=== PATIENT | male | born 1970 | race African-American/Black ===

== ENCOUNTER 2019-06-15 23:27 | Inpatient (IN) | payer OTHER ==
[2019-06-16 01:31] VITALS: BMI 28.4
--- NOTE | 2019-06-16 01:59 | HP ---
CIWA Score Nausea/Vomitin-No Nausea/No Vomiting Muscle Tremors: None Anxiety: 4-Mod. Anxious/Guarded Agitation: 4-Moderately Restless Paroxysmal Sweats: No Perspiration Orientation: 0-Oriented Tacttile Disturbances: 0-None Auditory Disturbances: 0-None Visual Disturbances: 0-None Headache: 4-Moderately Severe CIWA-Ar Total Score: 12 - Admission Criteria OASAS Guidelines: Admission for Medically Managed Detox: Requires at least one of the followin. CIWA greater than 12 2. Seizures within the past 24 hours 3. Delirium tremens within the past 24 hours 4. Hallucinations within the past 24 hours 5. Acute intervention needed for co occurring medical disorder 6. Acute intervention needed for co occurring psychiatric disorder 7. Severe withdrawal that cannot be handled at a lower level of care (continued vomiting, continued diarrhea, abnormal vital signs) requiring intravenous medication and/or fluids 8. Patient presents the following: CIWA greater than 12 Admission Criteria Met: Admission criteria met Admitting History and Physical - Smoking History Smoking history: Current every day smoker Have you smoked in the past 12 months: Yes Aproximately how many cigarettes per day: 30 - Alcohol/Substance Use Hx Alcohol Use: Yes Admission ROS [facility] Chief Complaint: seeking detox for alcohol Allergies/Adverse Reactions: Allergies Allergy/AdvReac Type Severity Reaction Status Date / Time No Known Allergies Allergy Verified 01/10/16 11:57 History of Present Illness: HERE FOR ALCOHOL DETOX. CLIENT IS SELF REFERRED HE IS KNOWN TO THIS PROGRAM. LAST HERE 2015. PRESENTS TODAY WITH C/O WORSENING WITHDRAWAL SEEKING DETOX. HE REPORTS DAILY INTAKE . STATES HE DRINKS ALL DAY. 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 DENIES SEIZURE D/O, SI/HI/AVH. DENIES ANY SIGNIFICANT PERIOD OF CLEAN TIME IN THE PAST YEAR. HOMELESS, UNEMPLOYED, DENIES LEGALS Exam Limitations: No Limitations - Ebola screening Have you traveled outside of the country in the last 21 days: No (N) Have you had contact with anyone from an Ebola affected area: No Do you have a fever: No - Review of Systems Constitutional: Chills, Night Sweats EENT: reports: Other (ENUCLEATED LEFT EYE) Respiratory: reports: No Symptoms reported Cardiac: reports: No Symptoms Reported GI: reports: Poor Fluid Intake : reports: No Symptoms Reported Musculoskeletal: reports: No Symptoms Reported Integumentary: reports: No Symptoms Reported Neuro: reports: Headache, Other (BLACK OUTS) Endocrine: reports: No Symptoms Reported Hematology: reports: No Symptoms Reported Psychiatric: reports: Orientated x3, Agitated (IRRITABLE), Anxious Other Systems: Reviewed and Negative Patient History - Patient Medical History Hx Anemia: No Hx Asthma: No Hx Chronic Obstructive Pulmonary Disease (COPD): No Hx Cancer: No Hx Cardiac Disorders: No Hx Congestive Heart Failure: No Hx Hypertension: Yes (ON MEDS) Hx Hypercholesterolemia: No Hx Pacemaker: No HX Cerebrovascular Accident: No Hx Seizures: No Hx Dementia: No Hx Diabetes: No Hx Gastrointestinal Disorders: No Hx Liver Disease: No Hx Genitourinary Disorders: No Hx Sexually Transmitted Disorders: No Hx Renal Disease (ESRD): No Hx Thyroid Disease: No Hx Human Immunodeficiency Virus (HIV): No Hx Hepatitis C: No Hx Depression: No Hx Suicide Attempt: Yes (tried shoOt himself) Hx Bipolar Disorder: Yes Hx Schizophrenia: Yes Other Medical History: DENIES - Patient Surgical History Past Surgical History: Yes Hx Neurologic Surgery: No Hx Cataract Extraction: No Hx Cardiac Surgery: No Hx Lung Surgery: No Hx Breast Surgery: No Hx Breast Biopsy: No Hx Abdominal Surgery: No Hx Appendectomy: No Hx Cholecystectomy: No Hx Genitourinary Surgery: No Hx Section: No Hx Orthopedic Surgery: No Other Surgical History: s/p enucleation of left eye at age of 35 Anesthesia Reaction: No - PPD History Previous Implant?: Yes Documented Results: Negative w/proof Implanted On Prior [facility] Admission?: Yes Date: 08/30/15 Results: 0 mm PPD to be Administered?: Yes - Smoking Cessation Smoking history: Current every day smoker Have you smoked in the past 12 months: Yes Aproximately how many cigarettes per day: 20 Cigars Per Day: 0 Hx Chewing Tobacco Use: No Initiated information on smoking cessation: Yes 'Breaking Loose' booklet given: 06/16/19 - Substance & Tx. History Hx Alcohol Use: Yes Hx Substance Use: Yes Substance Use Type: Alcohol, Marijuana Hx Substance Use Treatment: Yes ([facility]) - Substances abused Alcohol Other (specify): BEER/LIQUOR Substance route: Oral Frequency: Daily Amount used: 3-6 PACKS /16OZ- 1 GALLON Age of first use: 18 Date of last use: 06/15/19 Admission Physical Exam BHS - Vital Signs Vital Signs: Vital Signs - 24 hr 06/16/19 01:30 Temperature 97.5 F L Pulse Rate 63 Respiratory 18 Rate Blood Pressure 154/101 H - Physical General Appearance: Yes: Moderate Distress, Tremorous (FLET), Irritable HEENTM: Yes: EOMI (RIGHT EYE), Normocephalic, Normal Voice, ZACK (R EYE), Pharynx Normal, Other (LEFT EYE ENUCLEATED) Respiratory: Yes: Chest Non-Tender, Lungs Clear, Normal Breath Sounds, No Respiratory Distress, No Accessory Muscle Use Neck: Yes: No masses,lesions,Nodules, Supple, Trachea in good position Breast: Yes: Breast Exam Deferred Cardiology: Yes: Regular Rhythm, Regular Rate, S1, S2 Abdominal: Yes: Normal Bowel Sounds, Non Tender, Flat, Soft Genitourinary: Yes: Within Normal Limits Back: Yes: Normal Inspection Musculoskeletal: Yes: full range of Motion, Gait Steady Extremities: Yes: Normal Range of Motion, Non-Tender, Tremors (FELT) Neurological: Yes: Fully Oriented, Alert, Motor Strength 5/5, Depressed Affect Integumentary: Yes: Dry, Warm, Other (RESOLVING FOLLICULITIS OF CHEST) Lymphatic: Yes: Within Normal Limits - Diagnostic (1) Bipolar 1 disorder Current Visit: Yes Status: Acute (2) Schizophrenia Current Visit: Yes Status: Acute (3) Alcohol dependence with uncomplicated withdrawal Current Visit: No Status: Acute (4) Cannabis dependence Current Visit: No Status: Acute (5) Essential hypertension Current Visit: No Status: Chronic (6) Nicotine abuse Current Visit: No Status: Chronic (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
[2019-06-16] MEDS ORDERED: ONDANSETRON *ODT* 4 MG TABLET SL PRN (02:02)
[2019-06-16] MEDS ORDERED: MENTHOL/PHENOL 1 EACH UD MM PRN (02:02)
[2019-06-16] MEDS ORDERED: guaiFENesin 200 MG/10 ML 10 ML UNIT-DOSE CUPS PO PRN (02:02)
[2019-06-16] MEDS ORDERED: NICOTINE POLACRILEX 2 MG GUM BUC PRN (02:02)
[2019-06-16] MEDS ORDERED: chlordiazePOXIDE HCL 25 MG CAPSULE PO PRN (02:02)
[2019-06-16] MEDS ORDERED: BISMUTH SUBSALICYLATE 524 MG/30 ML UD PO PRN (02:02)
[2019-06-16] MEDS ORDERED: METHOCARBAMOL 500 MG TABLET PO PRN (02:02)
[2019-06-16] MEDS ORDERED: hydrOXYzine PAMOATE 25 MG CAPSULE (FP) PO PRN (02:02)
[2019-06-16] MEDS ORDERED: ACETAMINOPHEN 325 MG TABLET (FP) PO PRN ×2 (02:02)
[2019-06-16] MEDS ORDERED: IBUPROFEN 400 MG TABLET (FP) PO PRN (02:02)
[2019-06-16] MEDS ORDERED: MAGNESIUM HYDROX 2400MG/30ML ORAL SUSPENSION 30 ML CUP PO PRN (02:02)
[2019-06-16] MEDS ORDERED: MAG HYDROX/AL HYDROX/SIMETH 30 ML UNIT-DOSE CUP PO PRN (02:02)
[2019-06-16] MEDS ORDERED: DICYCLOMINE HCL 10 MG CAPSULE PO PRN (02:02)
[2019-06-16] MEDS ORDERED: MELATONIN 5 MG TABLETS PO PRN (02:02)
[2019-06-16] MEDS ORDERED: P-EPHED 60MG/TRIPROLIDI 2.5MG TABLET PO PRN (02:02)
[2019-06-16] MEDS ORDERED: MAGNESIUM CITRATE 300 ML BOTTLE PO PRN (02:02)
[2019-06-16] MEDS: chlordiazePOXIDE HCL 25 MG CAPSULE PO SCH ×4 (06:51→22:21)
[2019-06-16] MEDS: HYDROCHLOROTHIAZIDE 25 MG TABLET (FP) PO SCH (10:13)
[2019-06-16] MEDS: PRENATAL VITAMINS W/ FOLIC ACID TABLET (FP) PO SCH (10:13)
[2019-06-16] MEDS: NICOTINE 21 MG/24 HOURS TOPICAL PATCH TD SCH (10:13)
[2019-06-16 12:08] LABS: HEMATOCRIT 42.7 % (35.4-49); HEMOGLOBIN 13.9 GM/dL (11.7-16.9); MCH 27.6 pg (25.7-33.7); MCHC 32.6 g/dl (32.0-35.9); MEAN CELL VOLUME 84.5 fl (80-96); MEAN PLT VOLUME 8.8 fl (7.5-11.1); PLATELET COUNT 192 K/MM3 (134-434); RBC 5.06 M/mm3 (4.00-5.60); RDW 14.4 % (11.9-15.9); WHITE BLOOD COUNT 7.8 K/mm3 (4.0-10.0)
[2019-06-16 12:16] LABS: ALBUMIN 3.6 g/dl (3.4-5.0); BILIRUBIN,TOTAL 0.3 mg/dL (0.2-1); BLOOD UREA NITROGEN 11.8 mg/dL (7-18); CALCIUM 8.6 mg/dL (8.5-10.1); POTASSIUM 3.9 mmol/L (3.5-5.1); TOT PROT 6.3 g/dl (6.4-8.2)
--- NOTE | 2019-06-16 12:16 | PN ---
S CIWA - CIWA Score Nausea/Vomitin-No Nausea/No Vomiting Muscle Tremors: 3 Anxiety: 2 Agitation: 3 Paroxysmal Sweats: 3 Orientation: 0-Oriented Tacttile Disturbances: 0-None Auditory Disturbances: 0-None Visual Disturbances: 0-None Headache: 0-None Present CIWA-Ar Total Score: 11 BHS Progress Note (SOAP) Subjective: sweats irritable chills tired interrupted sleep Objective: 06/16/19 12:14 Vital Signs Temperature 97.9 F 06/16/19 10:03 Pulse Rate 63 06/16/19 10:03 Respiratory Rate 18 06/16/19 10:03 Blood Pressure 138/89 06/16/19 10:03 O2 Sat by Pulse Oximetry (%) Laboratory Tests 06/16/19 08:20 WBC 7.8 RBC 5.06 Hgb 13.9 Hct 42.7 MCV 84.5 MCH 27.6 MCHC 32.6 RDW 14.4 Plt Count 192 MPV 8.8 rest of labs pending aaox3 ambulating no acute distress Assessment: 06/16/19 12:16 withdrawals Plan: continue detox increase fluids pending labs
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
[2019-06-16] MEDS: THIAMINE HCL 100 MG TABLET (FP) PO SCH (22:21)
[2019-06-17] MEDS: chlordiazePOXIDE HCL 25 MG CAPSULE PO SCH ×3 (06:17→17:13)
[2019-06-17] MEDS: HYDROCHLOROTHIAZIDE 25 MG TABLET (FP) PO SCH (10:30)
[2019-06-17] MEDS: PRENATAL VITAMINS W/ FOLIC ACID TABLET (FP) PO SCH (10:30)
[2019-06-17] MEDS: NICOTINE 21 MG/24 HOURS TOPICAL PATCH TD SCH (10:31)
--- NOTE | 2019-06-17 11:10 | PN ---
S CIWA - CIWA Score Nausea/Vomitin-No Nausea/No Vomiting Muscle Tremors: 3 Anxiety: 2 Agitation: 3 Paroxysmal Sweats: 2 Orientation: 0-Oriented Tacttile Disturbances: 0-None Auditory Disturbances: 0-None Visual Disturbances: 0-None Headache: 0-None Present CIWA-Ar Total Score: 10 S Progress Note (SOAP) Subjective: sleepy tired interrupted sleep sweats Objective: 06/17/19 11:10 Vital Signs Temperature 96.6 F L 06/17/19 09:57 Pulse Rate 52 L 06/17/19 09:57 Respiratory Rate 16 06/17/19 09:57 Blood Pressure 155/70 06/17/19 09:57 O2 Sat by Pulse Oximetry (%) Laboratory Tests 06/16/19 06/16/19 08:20 08:20 WBC 7.8 RBC 5.06 Hgb 13.9 Hct 42.7 MCV 84.5 MCH 27.6 MCHC 32.6 RDW 14.4 Plt Count 192 MPV 8.8 Sodium 142 Potassium 3.9 Chloride 105 Carbon Dioxide 31 Anion Gap 6 L BUN 11.8 Creatinine 1.0 Est GFR (CKD-EPI)AfAm 102.69 Est GFR (CKD-EPI)NonAf 88.61 Random Glucose 92 Calcium 8.6 Total Bilirubin 0.3 AST 13 L ALT 18 Alkaline Phosphatase 64 Total Protein 6.3 L Albumin 3.6 aaox3 lying in bed no acute distress Assessment: 06/17/19 11:10 withdrawal sx Plan: continue detox increase fluids
[2019-06-18] MEDS ORDERED: chlordiazePOXIDE HCL 10 MG CAPSULE PO PRN
[2019-06-18] MEDS: THIAMINE HCL 100 MG TABLET (FP) PO SCH ×2 (00:54→22:03)
[2019-06-18] MEDS: chlordiazePOXIDE HCL 25 MG CAPSULE PO SCH (00:54)
[2019-06-18] MEDS: chlordiazePOXIDE HCL 10 MG CAPSULE PO SCH ×4 (06:27→22:04)
[2019-06-18] MEDS: PRENATAL VITAMINS W/ FOLIC ACID TABLET (FP) PO SCH (10:51)
[2019-06-18] MEDS: NICOTINE 21 MG/24 HOURS TOPICAL PATCH TD SCH (10:51)
[2019-06-18] MEDS ORDERED: FLU VACCINE QUAD 60 MCG/0.5 ML (MDV 19-20) IM ONE (12:00)
--- NOTE | 2019-06-18 13:31 | PN ---
[facility] CIWA - CIWA Score Nausea/Vomitin-No Nausea/No Vomiting Muscle Tremors: 2 Anxiety: 1-Mildly Anxious Agitation: 2 Paroxysmal Sweats: 2 Orientation: 0-Oriented Tacttile Disturbances: 0-None Auditory Disturbances: 0-None Visual Disturbances: 0-None Headache: 0-None Present CIWA-Ar Total Score: 7 BHS Progress Note (SOAP) Subjective: sweats body aches interrupted sleep irritable Objective: 06/18/19 13:31 Vital Signs Temperature 97.5 F L 06/18/19 09:33 Pulse Rate 58 L 06/18/19 09:33 Respiratory Rate 21 H 06/18/19 09:33 Blood Pressure 109/63 06/18/19 09:33 O2 Sat by Pulse Oximetry (%) aaox3 ambulating no acute distress Assessment: 06/18/19 13:32 mild withdrawals Plan: continue detox increase fluids
[2019-06-18] MEDS: HYDROCHLOROTHIAZIDE 25 MG TABLET (FP) PO SCH (15:30)
--- NOTE | 2019-06-18 22:18 | EKG ---
Test Reason : Blood Pressure : / mmHG Vent. Rate : 049 BPM Atrial Rate : 049 BPM P-R Int : 166 ms QRS Dur : 080 ms QT Int : 490 ms P-R-T Axes : 076 010 -31 degrees QTc Int : 442 ms SINUS BRADYCARDIA T WAVE ABNORMALITY, CONSIDER ANTEROLATERAL ISCHEMIA ABNORMAL ECG WHEN COMPARED WITH ECG OF 31-JUL-2009 23:25, CRITERIA FOR SEPTAL INFARCT ARE NO LONGER PRESENT NONSPECIFIC T WAVE ABNORMALITY NOW EVIDENT IN INFERIOR LEADS T WAVE INVERSION NOW EVIDENT IN ANTEROLATERAL LEADS Confirmed by MD USMAN, LYDIA ([id number]) on 06/18/2019 10:18:41 PM Referred By: Jefferson Lopez Confirmed By:LYDIA MARY MD
[2019-06-19] MEDS ORDERED: chlordiazePOXIDE HCL 10 MG CAPSULE PO SCH (05:00)
[2019-06-19 09:44] VITALS: BP 152/90; PULSE 70; TEMP 96.6
[2019-06-19] MEDS: HYDROCHLOROTHIAZIDE 25 MG TABLET (FP) PO SCH (10:18)
[2019-06-19] MEDS: PRENATAL VITAMINS W/ FOLIC ACID TABLET (FP) PO SCH (10:19)
[2019-06-19] MEDS: NICOTINE 21 MG/24 HOURS TOPICAL PATCH TD SCH (10:19)
--- NOTE | 2019-06-19 13:54 | DS ---
[facility] Detox Discharge Summary Admission Date: 06/16/19 Discharge Date: 06/19/19 - History Present History: Alcohol Dependence, Cannabis Dependence Additional Comments: Pt states he feels well and requested to be discharged instead of tomorrow (). Pt is medically cleared and discharge today. Pt is encouraged to follow- up with CD outpatient program and also to follow-up with his PMD. Pt verbalized understanding. Pt is alert and oriented x3 and in no acute distress. Pertinent Past History: h/o HTN, alcohol and cannabis use disorder. - Physical Exam Results Vital Signs: Vital Signs Temperature 96.6 F L 06/19/19 09:43 Pulse Rate 70 06/19/19 09:43 Respiratory Rate 18 06/19/19 09:43 Blood Pressure 152/90 06/19/19 09:43 O2 Sat by Pulse Oximetry (%) Pertinent Admission Physical Exam Findings: withdrawal symptoms. - Treatment Hospital Course: Detox Protocol Followed, Detoxed Safely, Responded well, Discharged Condition Good - Medication Discharge Medications: Ambulatory Orders Lisinopril [Prinivil] 20 mg PO DAILY #30 tablet 08/31/15 Hydrochlorothiazide [Hctz -] 25 mg PO DAILY #30 tablet 06/19/19 - Diagnosis (1) Alcohol dependence with uncomplicated withdrawal Current Visit: No Status: Acute (2) Cannabis dependence Current Visit: No Status: Acute (3) Cocaine dependence Current Visit: No Status: Acute Qualifiers: Substance use status: uncomplicated Qualified Code(s): F14.20 - Cocaine dependence, uncomplicated (4) Essential hypertension Current Visit: No Status: Chronic (5) Nicotine dependence Current Visit: No Status: Chronic Qualifiers: Nicotine product type: cigarettes Substance use status: unspecified nicotine-induced disorder Qualified Code(s): F17.219 - Nicotine dependence, cigarettes, with unspecified nicotine-induced disorders (6) Traumatic enucleation of left eye Current Visit: No Status: Chronic Qualifiers: Encounter type: sequela Qualified Code(s): S05.72XS - Avulsion of left eye , sequela - AMA Did Patient Leave Against Medical Advice: No [facility] CIWA - CIWA Score Nausea/Vomitin-No Nausea/No Vomiting Muscle Tremors: None Anxiety: 1-Mildly Anxious Agitation: 0-Normal Activity Paroxysmal Sweats: 1-Minimal Palms Moist Orientation: 0-Oriented Tacttile Disturbances: 0-None Auditory Disturbances: 0-None Visual Disturbances: 0-None Headache: 0-None Present CIWA-Ar Total Score: 2
[2019-06-20] MEDS ORDERED: chlordiazePOXIDE HCL 10 MG CAPSULE PO ONE (05:00)
== END 2019-06-19 10:22 | disposition home or self-care (01) | DRG 774 ==
LOC: YASAS 23:27 → Y6N 06-16 02:05
PROVIDERS: ADMIT Allergy & Immunology; ATTEND Allergy & Immunology
PROC: HZ2ZZZZ Detoxification Services for Substance Abuse Treatment (ICD-10-PCS; principal; 2019-06-16)
DX: F10.230 Alcohol dependence with withdrawal, uncomplicated (principal); F14.20 Cocaine dependence, uncomplicated; F12.20 Cannabis dependence, uncomplicated; F17.210 Nicotine dependence, cigarettes, uncomplicated; F20.9 Schizophrenia, unspecified; F31.9 Bipolar disorder, unspecified; I10 Essential (primary) hypertension; S05.72XS Avulsion of left eye, sequela; Z87.828 Personal history of other (healed) physical injury and trauma; Y08.89XS Assault by other specified means, sequela
CPT/HCPCS: 36415; 80053; 85027; 86593; 93005; 93010

== ENCOUNTER 2019-10-11 23:32 | Observation (INO) | payer OTHER ==
--- NOTE | 2019-10-12 00:25 | PDOC ---
History of Present Illness - General Chief Complaint: Shortness of Breath Stated Complaint: FEELING DIZZY Time Seen by Provider: 10/12/19 00:24 - History of Present Illness Initial Comments: 10/12/19 01:02 The patient is a 49 year old male with a history of HTN, HLD, CVA who presents for evaluation of shortness of breath and headache. The patient reports a several hour history of shortness of breath with associated lightheadedness and dizziness. He noted subsequent development of headache prompting his presentation to the ED for further evaluation. He noted that he has had similar symptoms in the past but has never sought medical attention with prior episodes. He otherwise denies fevers, chills, chest pain, nausea, vomiting, abdominal pain, numbness, tingling, weakness, or changes with urination or bowel movements. Past History - Past Medical History Allergies/Adverse Reactions: Allergies Allergy/AdvReac Type Severity Reaction Status Date / Time No Known Allergies Allergy Verified 10/12/19 00:35 Home Medications: Ambulatory Orders Lisinopril [Prinivil] 20 mg PO DAILY #30 tablet 08/31/15 Hydrochlorothiazide [Hctz -] 25 mg PO DAILY #30 tablet 06/19/19 Anemia: No Asthma: No Cancer: No Cardiac Disorders: No CVA: No COPD: No CHF: No Dementia: No Diabetes: No GI Disorders: No Disorders: No HTN: Yes Hypercholesterolemia: No Kidney Stones: No Liver Disease: No Seizures: No Thyroid Disease: No - Surgical History Abdominal Surgery: No Appendectomy: No Cardiac Surgery: No Cholecystectomy: No Lung Surgery: No Neurologic Surgery: No Orthopedic Surgery: No - Reproductive History Testicular Surgery: No - Psycho Social/Smoking Cessation Hx Smoking History: Current every day smoker Have you smoked in the past 12 months: Yes Number of Cigarettes Smoked Daily: 20 Cigars Per Day: 0 'Breaking Loose' booklet given: 06/16/19 Hx Alcohol Use: Yes Drug/Substance Use Hx: Yes Substance Use Type: Alcohol, Marijuana Hx Substance Use Treatment: Yes Review of Systems - Review of Systems Comments:: 10/12/19 01:14 Constitutional: No fevers, chills, fatigue, malaise HEENT: No Rhinorrhea, nasal congestion, visual changes Cardiovascular: Lightheadedness. No chest pain, syncope, palpitations, Respiratory: SOB. No Cough, Hemoptysis, Gastrointestinal: No Abdominal pain, Nausea, Vomiting, Constipation, Diarrhea, Melena Genitourinary: No Dysuria, Frequency, Urgency, Hesitancy, Hematuria, Flank pain Musculoskeletal: No Myalgia, arthralgia Skin: No rashes, itching, bruising, pallor Neurologic: Headache, Dizziness. No Numbness, Weakness, or Tingling Psychiatric: No Hallucinations. No SI or HI *Physical Exam - Physical Exam 10/12/19 01:15 General Appearance: Nourished. No Apparent Distress HEENT: EOMI, ZACK. Absent left eye. No Pharyngeal Erythema, Tonsillar Exudate, Tonsillar Erythema Neck: No Cervical Lymphadenopathy Respiratory/Chest: Lungs Clear, Normal Breath Sounds. No Crackles, Rales, Rhonchi, Wheezing Cardiovascular: Regular Rhythm, Regular Rate. No Murmur, Gallops, Rubs Gastrointestinal/Abdominal: Normal Bowel Sounds, Soft. 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 Normal Finger to Nose and Heel to [place] Heart Score/ECG Review #1 ECG reviewed & interpreted by me at: 05:04 10/12/19 05:04 HR 54 NV 178 QRS 80 QTc 458 Sinus Bradycardia T wave inversions in leads II, III, aVF, V4, V5, V6 Changes noted from EKGon 06/16/19 ED Treatment Course - LABORATORY CBC & Chemistry Diagram: 10/12/19 01:00 10/12/19 01:00 Medical Decision Making - Medical Decision Making 10/12/19 01:16 The patient is a 49 year old male with a history of HTN, HLD, CVA who presents for evaluation of shortness of breath and headache. Given the patient's history and physical exam, we will obtain a cbc, cmp, troponin, ekg, chest plain film, head CT to evaluate further. We will continue to monitor and reassess while here in the ED. 10/12/19 02:04 On reassessment, the patient is now complaining of chest pressure. We will treat with aspirin. 10/12/19 05:00 CBC, troponin were unremarkable. CMP demonstrates potassium of 3.0. Head CT did not demonstrate any acute pathology as preliminarily read by our spare person radiologist. Chest plain film did not demonstrate any acute pathology. Given the patient's cardiac risk factors, he will require admission for further monitoring. Discharge - Discharge Information Problems reviewed: Yes Clinical Impression/Diagnosis: Shortness of breath Chest pain Qualifiers: Chest pain type: unspecified Qualified Code(s): R07.9 - Chest pain, unspecified Condition: Stable - Admission Yes - Follow up/Referral - Patient Discharge Instructions - Post Discharge Activity
--- NOTE | 2019-10-12 00:32 | PDOC ---
Attending Attestation - Resident Resident Name: David Pacheco - ED Attending Attestation I have performed the following: I have examined & evaluated the patient, The case was reviewed & discussed with the resident, I agree w/resident's findings & plan - HPI HPI: 10/12/19 02:17 see resident hpi - Physicial Exam PE: 10/12/19 02:17 see resident exam - Medical Decision Making 10/12/19 02:17 49-year-old male with history of substance abuse as well as multiple cardiac risk factors with chest pressure and shortness of breath, patient also complaining of mild headache, nontrauma related Plan for CT scan of the brain, EKG, chest x-ray Will admit to medical service for further evaluation
[2019-10-12 00:35] VITALS: BMI 28.4
[2019-10-12 01:12] LABS: BASO % 0.3 % (0-2.0); HEMATOCRIT 39.1 % (35.4-49); HEMOGLOBIN 12.8 GM/dL (11.7-16.9); LYMPH % 24.8 % (8-40); MCH 27.2 pg (25.7-33.7); MCHC 32.6 g/dl (32.0-35.9); MEAN CELL VOLUME 83.4 fl (80-96); MEAN PLT VOLUME 8.5 fl (7.5-11.1); MONO % 7.1 % (3.8-10.2); NEUT % 65.8 % (42.8-82.8); PLATELET COUNT 174 K/MM3 (134-434); RBC 4.69 M/mm3 (4.00-5.60); RDW 14.9 % (11.9-15.9); WHITE BLOOD COUNT 9.1 K/mm3 (4.0-10.0)
[2019-10-12 01:47] LABS: ALBUMIN 2.6 g/dl (3.4-5.0); BILIRUBIN,TOTAL 0.4 mg/dL (0.2-1); BLOOD UREA NITROGEN 18.8 mg/dL (7-18); CREATININE 0.7 mg/dL (0.55-1.3); TOT PROT 4.6 g/dl (6.4-8.2)
[2019-10-12 01:56] LABS: CALCIUM 6.4 mg/dL (8.5-10.1)
[2019-10-12] MEDS ORDERED: ASPIRIN 81 MG CHEWABLE TABLETS PO ONE (02:05)
[2019-10-12] MEDS ORDERED: ASPIRIN 81 MG CHEWABLE TABLETS ONE (02:19)
[2019-10-12] MEDS ORDERED: POTASSIUM CHLORIDE TABS 20 MEQ TABLET.ER (FP) PO ONE ×2 (04:55→06:03)
[2019-10-12] MEDS ORDERED: ACETAMINOPHEN 325 MG TABLET (FP) PO PRN (04:57)
--- NOTE | 2019-10-12 05:18 | HP ---
CHIEF COMPLAINT: shortness of breath PCP: Dr. Jerez HISTORY OF PRESENT ILLNESS: 49 y.o. 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 The patient states he stood up quickly to use the restroom and 'passed out' after he finished urinating. He was unsure if he hit his head. Denies LOC. He also reported to ED staff he felt a "chest pressure" while in the ED, which he did not endorse during my interview with him. The patient has a history of hypertension and is prescribed hydrochlorothiazide 25mg daily and lisinopril 20mg daily but has not taken any medications in over 10 days. ER course was notable for: (1) 324mg aspirin (2) CT head, CXR negative (3) EKG shows bradycardia, T wave inversions Recent Travel: denies PAST MEDICAL HISTORY: as above PAST SURGICAL HISTORY: L eye excision Social History: lives in senior care Smoking: heavy smoking history, since age 18, more than 1 pack per day Alcohol: frequent, last use on friday Drugs: marijuana, pcp use, last used both yesterday Allergies No Known Allergies Allergy (Verified 10/12/19 00:35) HOME MEDICATIONS: Home Medications Medication Instructions Recorded Lisinopril [Prinivil] 20 mg PO DAILY #30 tablet 08/31/15 Hydrochlorothiazide [Hctz -] 25 mg PO DAILY #30 tablet 06/19/19 REVIEW OF SYSTEMS CONSTITUTIONAL: Absent: fever, chills, diaphoresis, generalized weakness, malaise, loss of appetite, weight change HEENT: Absent: rhinorrhea, nasal congestion, throat pain, throat swelling, difficulty swallowing, mouth swelling, ear pain, eye pain, visual changes CARDIOVASCULAR: Absent: chest pain, syncope, palpitations, irregular heart rate, lightheadedness , peripheral edema RESPIRATORY: Absent: cough, shortness of breath, dyspnea with exertion, orthopnea, wheezing, stridor, hemoptysis GASTROINTESTINAL: Absent: abdominal pain, abdominal distension, nausea, vomiting, diarrhea, constipation, melena, hematochezia GENITOURINARY: Absent: dysuria, frequency, urgency, hesitancy, hematuria, flank pain, genital pain MUSCULOSKELETAL: Absent: myalgia, arthralgia, joint swelling, back pain, neck pain SKIN: Absent: rash, itching, pallor HEMATOLOGIC/IMMUNOLOGIC: Absent: easy bleeding, easy bruising, lymphadenopathy, frequent infections ENDOCRINE: Absent: unexplained weight gain, unexplained weight loss, heat intolerance, cold intolerance NEUROLOGIC: Absent: headache, focal weakness or paresthesias, dizziness, unsteady gait, seizure, mental status changes, bladder or bowel incontinence PSYCHIATRIC: Absent: anxiety, depression, suicidal or homicidal ideation, hallucinations. PHYSICAL EXAMINATION Vital Signs - 24 hr 10/11/19 10/12/19 10/12/19 23:35 04:52 04:53 Temperature 97.7 F Pulse Rate 58 L Respiratory 18 Rate Blood Pressure 151/87 O2 Sat by Pulse 98 98 98 Oximetry (%) GENERAL: Awake, alert, and fully oriented, in no acute distress. HEENT: NCAT. L eye excised. R conjunctival injection LUNGS: Breath sounds equal, clear to auscultation bilaterally. No wheezes, and no crackles. No accessory muscle use. HEART: Bradycardic, normal S1 and S2 without murmur, rub or gallop. ABDOMEN: Soft, nontender, not distended, normoactive bowel sounds, no guarding. EXTREMITIES: 2+ pulses, warm, well-perfused. No peripheral edema. NEUROLOGICAL: Good handrip strength, motor 5/5 UE, sensory intact b/l ue/le, reports RUE weakness from prior cva. PSYCHIATRIC: Cooperative. Good eye contact. Appropriate mood and affect. SKIN: Warm, dry, normal turgor, no rashes or lesions noted Laboratory Results - last 24 hr 10/12/19 10/12/19 10/12/19 01:00 01:00 01:00 WBC 9.1 RBC 4.69 Hgb 12.8 Hct 39.1 MCV 83.4 MCH 27.2 MCHC 32.6 RDW 14.9 Plt Count 174 MPV 8.5 Absolute Neuts (auto) 6.0 Neutrophils % 65.8 Lymphocytes % 24.8 Monocytes % 7.1 Eosinophils % 2.0 Basophils % 0.3 Nucleated RBC % 0 Sodium 145 Potassium 3.0 L Chloride 118 H Carbon Dioxide 21 Anion Gap 6 L BUN 18.8 H Creatinine 0.7 Est GFR (CKD-EPI)AfAm 129.34 Est GFR (CKD-EPI)NonAf 111.59 Random Glucose 78 Calcium 6.4 L* Total Bilirubin 0.4 AST 14 L ALT 16 Alkaline Phosphatase 40 L Creatine Kinase 235 Creatine Kinase Index 0.8 CK-MB (CK-2) 2.0 Troponin I 0.02 Total Protein 4.6 L Albumin 2.6 L ASSESSMENT/PLAN: 49 y.o. 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, EtOH & PCP dependence, anxiety, nicotine dependence presenting for dyspnea and headache #Chest pain -no longer experiencing chest pain -relieved w/ aspirin 324 mg -currently bradycardic to 58, continue to monitor vitals -EKG shows bradycardia, t wave inversions -Trop neg x1 -repeat AM trop, trend #Orthostatic hypotension -orthostatics -holding home anti htn meds -hold diuretics, alpha blockers -Observe on tele monitor #Dyspnea -currently satting well on RA, 98% -no home resp meds -can use NC if needed -CXR shows no acute pathology #Headache -patient is fully alert & oriented to self, time, place -CT head shows no acute pathology -tylenol prn for pain #EtOH, PCP dependence -last used pcp yesterday, alcohol friday -fall precautions -CIWA checks -multivitamin, folic acid, thiamine -f/u u-tox -ativan prn #FEN -no standing fluids -hypokalemic, repleting. avoid diuretics. Hypocalcemia 7.5 corrected, f/u AM Ca -sodium controlled diet #PPX -Heparin sq #Dispo -observe on telemetry Visit type - Emergency Visit Emergency Visit: Yes ED Registration Date: 10/12/19 Care time: The patient presented to the Emergency Department on the above date and was hospitalized for further evaluation of their emergent condition. - New Patient This patient is new to me today: Yes Date on this admission: 10/12/19 - Critical Care Critical Care patient: No ATTENDING PHYSICIAN STATEMENT I saw and evaluated the patient. I reviewed the resident's note and discussed the case with the resident. I agree with the resident's findings and plan as documented. SUBJECTIVE: OBJECTIVE: ASSESSMENT AND PLAN:
[2019-10-12] MEDS ORDERED: LORazepam 2 MG/ML SDV VIAL IVPUSH PRN (05:24)
[2019-10-12] MEDS ORDERED: KCL 10 MEQ IVPB 10 MEQ/100 ML INFUS.BAG IVPB ONE ×2 (06:03→07:41)
--- NOTE | 2019-10-12 06:05 | PN ---
Teaching Attending Note Name of Resident: Millie Farris ATTENDING PHYSICIAN STATEMENT I saw and evaluated the patient. I reviewed the resident's note and discussed the case with the resident. I agree with the resident's findings and plan as documented. SUBJECTIVE: 41-year-old Undomiciled male with a history of hypertension, dyslipidemia, CVA in August 2017 with residual right upper extremity weakness, polysubstance abuse including EtOH, PCP, nicotine presenting for dyspnea and headache x1 day. Patient felt dizzy after standing up to use the restroom however no loss of consciousness reported. Was previously on hydrochlorothiazide and lisinopril has not taking his antihypertensive meds recently. Allegedly with some chest pain in the emergency room that is now resolved. OBJECTIVE: Last Vital Signs Temp Pulse Resp BP Pulse Ox 97.7 F 58 L 18 151/87 98 10/11/19 23:35 10/11/19 23:35 10/11/19 23:35 10/11/19 23:35 10/12/19 04:53 GENERAL: Well developed, well nourished. Awake and alert. No acute distress. HEENT: Normocephalic, atraumatic. PERRLA, EOMI. No conjunctival pallor. Sclera are non- icteric. Moist mucous membranes. Oropharynx is clear. NECK: Supple. Full ROM. No JVD. Carotid pulses 2+ and symmetric, without bruits. No thyromegaly. No lymphadenopathy. CARDIOVASCULAR: Regular rate and rhythm. No murmurs, rubs, or gallops. Distal pulses are 2+ and symmetric. PULMONARY: No evidence of respiratory distress. Lungs clear to auscultation bilaterally. No wheezing, rales or rhonchi. ABDOMINAL: Soft. Non-tender. Non-distended. No rebound or guarding. No organomegaly. Normoactive bowel sounds. MUSCULOSKELETAL Normal range of motion at all joints. No bony deformities or tenderness. No CVA tenderness. EXTREMITIES: No cyanosis. No clubbing. No edema. No calf tenderness. SKIN: Warm and dry. Normal capillary refill. No rashes. No jaundice. PSYCHIATRIC: Cooperative. Good eye contact. Appropriate mood and affect. Abnormal Lab Results 10/12/19 01:00 Potassium 3.0 L Chloride 118 H Anion Gap 6 L BUN 18.8 H Calcium 6.4 L* AST 14 L Alkaline Phosphatase 40 L Total Protein 4.6 L Albumin 2.6 L Imaging studies reviewed Head CT with no acute insults EKG showed sinus bradycardia with some specific T wave inversions ASSESSMENT AND PLAN: 49-year-old male with polysubstance abuse including EtOH, PCP, marijuana, nicotine, hypokalemia, hypo albuminemia. Suspected orthostatic hypotension at home. Telemetry observation Supplement potassium Would avoid diuretics in the presence of severe hypokalemia Check magnesium and phosphate and supplement as needed Thiamine, folate, multivitamin Urine toxicology screen Counseled to cease tobacco smoking Thiamine, folate, multivitamin Check orthostatics Trend troponins Fall precautions IV fluid hydration Heparin subcutaneously for DVT prophylaxis
[2019-10-12] MEDS: KCL 10 MEQ IVPB 10 MEQ/100 ML INFUS.BAG IVPB SCH ×3 (06:11→10:18)
[2019-10-12 08:38] LABS: BASO % 0.4 % (0-2.0); EOS % 2.1 % (0-4.5); HEMOGLOBIN 13.2 GM/dL (11.7-16.9); LYMPH % 23.3 % (8-40); MCH 27.4 pg (25.7-33.7); MCHC 32.9 g/dl (32.0-35.9); MEAN CELL VOLUME 83.2 fl (80-96); MEAN PLT VOLUME 8.7 fl (7.5-11.1); MONO % 7.8 % (3.8-10.2); NEUT % 66.4 % (42.8-82.8); PLATELET COUNT 183 K/MM3 (134-434); RBC 4.81 M/mm3 (4.00-5.60); RDW 14.6 % (11.9-15.9); WHITE BLOOD COUNT 7.6 K/mm3 (4.0-10.0)
[2019-10-12 09:14] LABS: ALBUMIN 3.5 g/dl (3.4-5.0); BILIRUBIN,TOTAL 0.9 mg/dL (0.2-1); BLOOD UREA NITROGEN 17.9 mg/dL (7-18); CALCIUM 8.7 mg/dL (8.5-10.1); CREATININE 0.9 mg/dL (0.55-1.3); MAGNESIUM 2.1 mg/dL (1.8-2.4); POTASSIUM 4.1 mmol/L (3.5-5.1); TOT PROT 6.4 g/dl (6.4-8.2)
[2019-10-12] MEDS: MULTIVITAMINS (DAILY MVI) TABLET (FP) PO SCH (10:17)
[2019-10-12] MEDS: THIAMINE HCL 100 MG TABLET (FP) PO SCH (10:17)
[2019-10-12] MEDS: FOLIC ACID 1 MG TABLET (FP) PO SCH (10:17)
[2019-10-12] MEDS ORDERED: KETOROLAC TROMETHAMINE 30 MG/1 ML VIAL IM ONE (11:56)
--- NOTE | 2019-10-12 11:56 | PN ---
Physical Exam: SUBJECTIVE: Patient seen and examined at bedside, endorses mild L sided CP, reproducible/TTP on L chest wall, endorses fall few days ago, will obtain X-ray to r/o fracture, otherwise feels comfortable, NAD, VSS. OBJECTIVE: Vital Signs Period Temp Pulse Resp BP Sys/Serna Pulse Ox Last 24 Hr 97.7 F-97.8 F 46-67 16-18 120-151/54-97 98-98 GENERAL: Awake, alert, and fully oriented, in no acute distress. HEENT: . NC/AT, L eye excised (due to trauma years ago). otherwise R eye EOMI, ZACK, clear conjunctiva LUNGS: Breath sounds equal, clear to auscultation bilaterally. No wheezes, and no crackles. No accessory muscle use. HEART: RRR, S1, S2+, no m/r/g ABDOMEN: Soft, nontender, not distended, normoactive bowel sounds, no guarding. EXTREMITIES: 2+ pulses, warm, well-perfused. No peripheral edema. NEUROLOGICAL: Good handrip strength, motor 5/5 UE, sensory intact b/l ue/le, reports RUE weakness from prior cva. PSYCHIATRIC: Cooperative. Good eye contact. Appropriate mood and affect. SKIN: Warm, dry, normal turgor, no rashes or lesions noted Laboratory Results - last 24 hr 10/12/19 10/12/19 10/12/19 01:00 01:00 01:00 WBC 9.1 RBC 4.69 Hgb 12.8 Hct 39.1 MCV 83.4 MCH 27.2 MCHC 32.6 RDW 14.9 Plt Count 174 MPV 8.5 Absolute Neuts (auto) 6.0 Neutrophils % 65.8 Lymphocytes % 24.8 Monocytes % 7.1 Eosinophils % 2.0 Basophils % 0.3 Nucleated RBC % 0 Sodium 145 Potassium 3.0 L Chloride 118 H Carbon Dioxide 21 Anion Gap 6 L BUN 18.8 H Creatinine 0.7 Est GFR (CKD-EPI)AfAm 129.34 Est GFR (CKD-EPI)NonAf 111.59 Random Glucose 78 Calcium 6.4 L* Magnesium Total Bilirubin 0.4 AST 14 L ALT 16 Alkaline Phosphatase 40 L Creatine Kinase 235 Creatine Kinase Index 0.8 CK-MB (CK-2) 2.0 Troponin I 0.02 Total Protein 4.6 L Albumin 2.6 L 10/12/19 10/12/19 08:05 08:05 WBC 7.6 RBC 4.81 Hgb 13.2 Hct 40.0 MCV 83.2 MCH 27.4 MCHC 32.9 RDW 14.6 Plt Count 183 MPV 8.7 Absolute Neuts (auto) 5.0 Neutrophils % 66.4 Lymphocytes % 23.3 Monocytes % 7.8 Eosinophils % 2.1 Basophils % 0.4 Nucleated RBC % 0 Sodium 141 Potassium 4.1 Chloride 109 H Carbon Dioxide 27 Anion Gap 5 L BUN 17.9 Creatinine 0.9 Est GFR (CKD-EPI)AfAm 116.65 Est GFR (CKD-EPI)NonAf 100.64 Random Glucose 80 Calcium 8.7 Magnesium 2.1 Total Bilirubin 0.9 AST 13 L ALT 20 Alkaline Phosphatase 54 Creatine Kinase Creatine Kinase Index CK-MB (CK-2) Troponin I 0.02 Total Protein 6.4 Albumin 3.5 Active Medications Generic Name Dose Route Start Last Admin Trade Name Freq PRN Reason Stop Dose Admin Acetaminophen 650 mg 10/12/19 04:57 Tylenol - PO Q4H PRN PAIN LEVEL 6-10 Folic Acid 1 mg 10/12/19 10:00 10/12/19 10:17 Folic Acid - PO 1 mg DAILY MARTY Administration Heparin Sodium (Porcine) 5,000 unit 10/12/19 14:00 Heparin - SQ TID MARTY Lorazepam 1 mg 10/12/19 05:24 Ativan Injection - IVPUSH Q6H PRN ANXIETY Multivitamins/Minerals/Vitamin C 1 tab 10/12/19 10:00 10/12/19 10:17 Tab-A-Vit - PO 1 tab DAILY MARTY Administration Thiamine HCl 100 mg 10/12/19 10:00 10/12/19 10:17 Vitamin B1 - PO 100 mg DAILY MARTY Administration ASSESSMENT/PLAN: 49 M h/o HTN, HLD, CVA in August 2017 w/ residual RUE weakness, EtOH & PCP dependence, anxiety, nicotine dependence admitted for evaluation of atypical CP and MARINO. Atypical CP endorses mild L sided CP to palpation, pleuritic in nature, unlikely d/t ACS, endorses falling on it days ago, will get L rib series x-ray to r/o fracture 1 dose of IM Toradol, Trops neg x2, echo pending Cardio cs: Dr Lopez Old CVA no new deficits cont. statin, Asa SEND a1C, LIPIDS, tsh Dyspnea on exertion chronic in nature, endorses good ET however sometimes goes up 12 flights of stairs when building elevator malfunctions PFTs as outpatient, counseled on smoking cessation, Albuterol PRN for SOB Follow echo STEVENS resolved with Tylenol EtOH, PCP dependence watch for withdrawal, currently not exhibiting any signs Thiamine/FA/MV, counseled on cessation SW referral (patient lives in [facility] needs to let them know he's here to hold bed) DVT ppx -Heparin sq Disposition -observe on telemetry Visit type - Emergency Visit Emergency Visit: Yes ED Registration Date: 10/12/19 Care time: The patient presented to the Emergency Department on the above date and was hospitalized for further evaluation of their emergent condition. - New Patient This patient is new to me today: Yes Date on this admission: 10/12/19 - Critical Care Critical Care patient: No - Discharge Referral Referred to [facility] Med P.C.: No
[2019-10-12] MEDS ORDERED: KETOROLAC TROMETHAMINE 30 MG/1 ML VIAL ONE (12:37)
--- NOTE | 2019-10-12 13:01 | EKG ---
Test Reason : Blood Pressure : / mmHG Vent. Rate : 054 BPM Atrial Rate : 054 BPM P-R Int : 178 ms QRS Dur : 080 ms QT Int : 484 ms P-R-T Axes : 063 -03 -66 degrees QTc Int : 458 ms SINUS BRADYCARDIA WITH PREMATURE ATRIAL COMPLEXES SEPTAL INFARCT , AGE UNDETERMINED T WAVE ABNORMALITY, CONSIDER LATERAL ISCHEMIA ABNORMAL ECG Confirmed by Brennan Jane MD ([id number]) on 10/12/2019 1:01:34 PM Referred By: Confirmed By:Brennan Jane MD
[2019-10-12] MEDS: HEPARIN NA (PORCINE) 5,000 UNITS/ML 1ML VIAL SQ SCH ×2 (13:41→22:20)
--- NOTE | 2019-10-12 13:50 | ECHO ---
Version: 1 Name: YESENIA ELLISON Exam: Adult Echocardiogram Study Date: 10/12/2019, 10:46 AM Age: 49 Years MMode/2D Measurements & Calculations IVSd: 1.46 cm LVIDs: 3.9 cm LVIDd: 5.3 cm LVPWd: 1.33 cm LAV (MOD-bp): 118.0 ml ACS: 2.42 cm Ao root diam: 3.2 cm LVOT diam: 2.27 cm LA dimension: 4.3 cm Doppler Measurements & Calculations MV E max dima: 49.4 cm/sec Med E/e': 7.7 MV A max dima: 70.6 cm/sec Med Peak E' Dima: 6.4 cm/sec MV E/A: 0.70 Lat E/e': 5.3 Lat Peak E' Dima: 9.4 cm/sec Ao max P.4 mmHg BALJINDER(I,D): 3.6 cm Ao mean P.4 mmHg LV V1 mean: 68.9 cm/sec Ao V2 max: 126.2 cm/sec LV V1 mean P.25 mmHg PI end-d dima: 58.4 cm/sec TR max dima: 247.7 cm/sec TR max P.6 mmHg Left Ventricle The left ventricle is normal in size. There is moderate concentric left ventricular hypertrophy. Lef t ventricular systolic function is normal. Ejection Fraction = 65%. The transmitral spectral Doppler f low pattern is suggestive of impaired LV relaxation. Right Ventricle The right ventricle is normal in size and function. Atria The left atrium is moderately dilated. Right atrial size is normal. Mitral Valve The mitral valve is normal. There is mild mitral regurgitation. Tricuspid Valve The tricuspid valve is normal. There is mild tricuspid regurgitation. Aortic Valve The aortic valve is normal in structure and function. Pulmonic Valve The pulmonic valve is not well seen, but is grossly normal. Great Vessels The aortic root is normal size. Normal aortic arch, descending and ascending aorta. Pericardium/Pleura There is no pericardial effusion. Summary Statements The left ventricle is normal in size. There is moderate concentric left ventricular hypertrophy. Left ventricular systolic function is normal. Ejection Fraction = 65%. The transmitral spectral Doppler flow pattern is suggestive of impaired LV relaxation. The right ventricle is normal in size and function. The left atrium is moderately dilated. Right atrial size is normal. The mitral valve is normal. There is mild mitral regurgitation. The tricuspid valve is normal. There is mild tricuspid regurgitation. The aortic valve is normal in structure and function. The pulmonic valve is not well seen, but is grossly normal. The aortic root is normal size. Normal aortic arch, descending and ascending aorta There is no pericardial effusion. Wilfredo Niremberg 10/12/2019, 1:49 PM Ordering Physician: García Cannon Referring Physician: GARCÍA KHAN Performed By: Monserrat Elizalde
--- NOTE | 2019-10-12 17:19 | CON.CARD ---
Consult Consult Specialty:: cardiology Reason for Consultation:: SOB; diastolic CHF; hypocalcemia; hypokalemia - History of Present Illness Chief Complaint: Pt SA&Ox3; + intermittent central chest tightness and SOB History of Present Illness: Mr. Pyle is a 49 year old black man with a PM history of polysubstance abuse ( recent PCP; remote hx heroin and cocaine; + alcohol), HTN, HLD, ?CVA, left eye prosthesis, anxiety, overweight, cigarettes, who now presents for evaluation of shortness of breath, chest tightness, and headache. The patient reports a several hour history of shortness of breath with associated lightheadedness and dizziness. He He noted subsequent development of headache prompting his presentation to the ED for further evaluation. He noted that he has had similar symptoms in the past but has never sought medical attention with prior episodes. He otherwise denies fevers, chills, chest pain, nausea, vomiting, abdominal pain, numbness, tingling, weakness, or changes with urination or bowel movements. Pt was noted to have hypodcalcemia and hypokalemia. He has hx of central chest tightness, both at rst and with stress , that may lst from seconds to minutes. He denies having had stress test or coronary angiogram in the past. + Family hx CAD (father, mother, and brother with MIs in their 50s or 60s). - History Source History Provided By: Patient, Medical Record Limitations to Obtaining History: No Limitations - Past Medical History STAMPING [employer]: Yes: CVA (reportedly) Cardio/Vascular: Yes: CHF (diastolic ) Psych: Yes: Addictions, Bipolar - Alcohol/Substance Use Hx Alcohol Use: Yes History of Substance Use: reports: Cocaine - Smoking History Smoking history: Current every day smoker Have you smoked in the past 12 months: Yes Aproximately how many cigarettes per day: 20 Home Medications - Allergies Allergies/Adverse Reactions: Allergies Allergy/AdvReac Type Severity Reaction Status Date / Time No Known Allergies Allergy Verified 10/12/19 00:35 - Home Medications Home Medications: Ambulatory Orders Lisinopril [Prinivil] 20 mg PO DAILY #30 tablet 08/31/15 Hydrochlorothiazide [Hctz -] 25 mg PO DAILY #30 tablet 06/19/19 Family Medical History Family Hx Cardiac Disorders: Mother (ND in her 60s), Father (ND in his 60s), Brother (ND in his 50s) Review of Systems - Review of Systems Constitutional: reports: No Symptoms Eyes: reports: No Symptoms HENT: reports: No Symptoms Neck: reports: No Symptoms Cardiovascular: reports: Shortness of Breath Respiratory: reports: SOB Gastrointestinal: reports: No Symptoms Genitourinary: reports: No Symptoms Breasts: reports: No Symptoms Reported Musculoskeletal: reports: No Symptoms Integumentary: reports: No Symptoms Neurological: reports: No Symptoms Endocrine: reports: No Symptoms Hematology/Lymphatic: reports: No Symptoms Psychiatric: reports: Other (substance abuse) - Risk Factors Known Risk Factors: Yes: Age, Gender, Hypercholesterolemia, Hypertension Vital Signs: Vital Signs Temperature 98 F 10/12/19 14:15 Pulse Rate 52 L 10/12/19 14:15 Respiratory Rate 20 10/12/19 14:15 Blood Pressure 134/66 10/12/19 14:15 O2 Sat by Pulse Oximetry (%) 99 10/12/19 14:11 - Other Data Labs, Other Data: CBC, BMP 10/12/19 08:05 10/12/19 08:05 Troponin, BNP 10/12/19 10/12/19 01:00 08:05 Troponin I 0.02 0.02 Troponin, BNP 10/12/19 10/12/19 01:00 08:05 Troponin I 0.02 0.02 Problem List - Problems (1) Substance abuse Code(s): F19.10 - OTHER PSYCHOACTIVE SUBSTANCE ABUSE, UNCOMPLICATED (2) HTN (hypertension) Code(s): I10 - ESSENTIAL (PRIMARY) HYPERTENSION (3) Hyperlipidemia Code(s): E78.5 - HYPERLIPIDEMIA, UNSPECIFIED (4) Shortness of breath Code(s): R06.02 - SHORTNESS OF BREATH (5) Anxiety Code(s): F41.9 - ANXIETY DISORDER, UNSPECIFIED (6) Nicotine dependence Code(s): F17.200 - NICOTINE DEPENDENCE, UNSPECIFIED, UNCOMPLICATED Qualifiers: Nicotine product type: cigarettes Substance use status: unspecified nicotine-induced disorder Qualified Code(s): F17.219 - Nicotine dependence, cigarettes, with unspecified nicotine-induced disorders (7) Traumatic enucleation of left eye Code(s): S05.72XA - AVULSION OF LEFT EYE, INITIAL ENCOUNTER Qualifiers: Encounter type: sequela Qualified Code(s): S05.72XS - Avulsion of left eye , sequela (8) Diastolic CHF Code(s): I50.30 - UNSPECIFIED DIASTOLIC (CONGESTIVE) HEART FAILURE (9) Alcohol dependence Code(s): F10.20 - ALCOHOL DEPENDENCE, UNCOMPLICATED (10) Mood disorder Code(s): F39 - UNSPECIFIED MOOD [AFFECTIVE] DISORDER (11) Essential hypertension Code(s): I10 - ESSENTIAL (PRIMARY) HYPERTENSION (12) PCP dependence Assessment/Plan: drgu rehabilitaion (he "graduated" from a program years ago). Code(s): F19.20 - OTHER PSYCHOACTIVE SUBSTANCE DEPENDENCE, UNCOMPLICATED (13) Atypical chest pain Assessment/Plan: TNI < 0.02; f/u serially. EGK: sinus bradeycardia; lateral WTT changes; ? old septal infarct. ECHO: normal LVEF; moderate LAE. Plan: F/u on telemetry. Lipids. Stress treadmill MIBI. Code(s): R07.89 - OTHER CHEST PAIN (14) Smokes cigarettes Assessment/Plan: Pt hs no craving for the moment, but agrees to consider nicotine patch before he is discharged. Code(s): F17.210 - NICOTINE DEPENDENCE, CIGARETTES, UNCOMPLICATED
[2019-10-13] MEDS: HEPARIN NA (PORCINE) 5,000 UNITS/ML 1ML VIAL SQ SCH (07:13)
[2019-10-13 09:57] LABS: COCAINE, UR NEGATIVE ng/ml (CUTOFF=300); METHADONE, UR NEGATIVE ng/ml (CUTOFF=300); OPIATES, URI NEGATIVE ng/ml (CUTOFF=300); URINE AMPHETAMINES NEGATIVE ng/ml (CUTOFF=500); URINE BARBITURATES NEGATIVE ng/ml (CUTOFF=200); URINE BENZODIAZEPINES NEGATIVE ng/ml (CUTOFF=200)
[2019-10-13 10:06] LABS: PHENCYCLIDINE,URINE POSITIVE ng/ml (CUTOFF=25)
[2019-10-13] MEDS: FOLIC ACID 1 MG TABLET (FP) PO SCH (12:57)
[2019-10-13] MEDS: MULTIVITAMINS (DAILY MVI) TABLET (FP) PO SCH (12:57)
[2019-10-13] MEDS: THIAMINE HCL 100 MG TABLET (FP) PO SCH (12:57)
[2019-10-13 15:33] VITALS: BP 131/70; PULSE 58; TEMP 97.9
--- NOTE | 2019-10-13 16:32 | EKG ---
Test Reason : Blood Pressure : / mmHG Vent. Rate : 050 BPM Atrial Rate : 050 BPM P-R Int : 172 ms QRS Dur : 088 ms QT Int : 484 ms P-R-T Axes : 061 008 -22 degrees QTc Int : 441 ms SINUS BRADYCARDIA OTHERWISE NORMAL ECG WHEN COMPARED WITH ECG OF 12-OCT-2019 01:33, PREMATURE ATRIAL COMPLEXES ARE NO LONGER PRESENT T WAVE INVERSION NO LONGER EVIDENT IN LATERAL LEADS Confirmed by MD Martinez, David ([id number]) on 10/13/2019 4:32:11 PM Referred By: Deisy DUMONT Confirmed By:David Henriquez MD
--- NOTE | 2019-10-13 16:47 | DS ---
Physical Examination Vital Signs: Vital Signs Temperature 97.9 F 10/13/19 14:00 Pulse Rate 58 L 10/13/19 14:00 Respiratory Rate 18 10/13/19 09:00 Blood Pressure 131/70 10/13/19 14:00 O2 Sat by Pulse Oximetry (%) 99 10/13/19 09:00 Constitutional: Yes: No Distress, Calm Eyes: Yes: Other (left eye defect) HENT: Yes: Atraumatic Neck: Yes: Supple Cardiovascular: Yes: Bradycardia Respiratory: Yes: CTA Bilaterally Gastrointestinal: Yes: WNL, Normal Bowel Sounds, Soft Musculoskeletal: Yes: Other (no chest tenderness). No: Back Pain Edema: No Psychiatric: Yes: Alert, Oriented Labs: CBC, BMP 10/12/19 08:05 10/12/19 08:05 Discharge Summary Problems reviewed: Yes Reason For Visit: SHORTNESS OF BREATH,CHEST PAIN Current Active Problems Atypical chest pain (Acute) Chest pain (Acute) Diastolic CHF (Acute) HTN (hypertension) (Acute) Hyperlipidemia (Acute) Shortness of breath (Acute) Smokes cigarettes (Acute) Substance abuse (Acute) Hospital Course: 49 y.o. 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 The patient states he stood up quickly to use the restroom and 'passed out' after he finished urinating. He was unsure if he hit his head. Denies LOC. Had chest pressure in ER. Echo done here shows EF >55% but Stress test shows EF of 38%. Per cardiology patient should follow up as outpatient to consider pharmological stress testing especially if he has chest pain again since he did not reach goal heart rate. He was found to have low calcium and potassium which were repleted. Found to be bradycardic as well. HR in 50s now. Condition: Stable - Instructions Diet, Activity, Other Instructions: please eat a low sodium diet. Resume your home medications. If you have worsening of your symptoms or fever chills chest pain or SOB please go to nearest ER. Stop smoking. You will need to follow up with a primary care doctor and a launch steward to have repeat pharmacological stress test if you have chest pain again due to discrepancy between echo and stress ejection fraction Referrals: Sj Rutherford MD [Staff Physician] - 2 Weeks Chris Amaya MD [Staff Physician] - 2 Weeks (please follow up for pharmological stress test) Disposition: HOME - Home Medications Comprehensive Discharge Medication List: Ambulatory Orders Hydrochlorothiazide [Hctz -] 25 mg PO DAILY #30 tablet 10/13/19 Lisinopril [Prinivil] 20 mg PO DAILY #30 tablet 10/13/19 This patient is new to me today: Yes Date on this admission: 10/13/19 Emergency Visit: Yes ED Registration Date: 10/12/19 Care time: The patient presented to the Emergency Department on the above date and was hospitalized for further evaluation of their emergent condition. Critical Care patient: No - Discharge Referral Referred to [facility] No
== END 2019-10-13 18:09 | disposition home or self-care (01) ==
LOC: JER 23:32 → JERBED 10-12 04:56 → J4W 10-12 13:07
PROVIDERS: ADMIT Internal Medicine; ATTEND Internal Medicine
PROC: 3E0333Z Introduction of Anti-inflammatory into Peripheral Vein, Percutaneous Approach (ICD-10-PCS; principal; 2019-10-12)
PROC: 3E0337Z Introduction of Electrolytic and Water Balance Substance into Peripheral Vein, Percutaneous Approach (ICD-10-PCS; 2019-10-12)
PROC: 3E013GC Introduction of Other Therapeutic Substance into Subcutaneous Tissue, Percutaneous Approach (ICD-10-PCS; 2019-10-12)
DX: R07.89 Other chest pain (principal); R06.02 Shortness of breath; I95.1 Orthostatic hypotension; I11.0 Hypertensive heart disease with heart failure; I50.30 Unspecified diastolic (congestive) heart failure; E78.5 Hyperlipidemia, unspecified; F17.210 Nicotine dependence, cigarettes, uncomplicated; F10.20 Alcohol dependence, uncomplicated; F16.20 Hallucinogen dependence, uncomplicated; F41.9 Anxiety disorder, unspecified; I69.331 Monoplegia of upper limb following cerebral infarction affecting right dominant side; F39 Unspecified mood [affective] disorder
CPT/HCPCS: 36415; 70450-TC; 71045-TC-FY; 78452-TC; 80053; 80061; 80307; 82550; 82553; 83036; 83721; 83735; 84443; 84484; 85025; 93005; 93010; 93017; 93306-TC; 96372; 96374; 99285-25; A9502; G0378; J1644

== ENCOUNTER 2020-03-24 00:03 | Inpatient (IN) | payer OTHER ==
--- NOTE | 2020-03-24 00:23 | PDOC ---
History of Present Illness - General Chief Complaint: Chest Pain Stated Complaint: CHEST PAIN Time Seen by Provider: 03/24/20 00:20 Past History - Medical History Allergies/Adverse Reactions: Allergies Allergy/AdvReac Type Severity Reaction Status Date / Time No Known Allergies Allergy Verified 03/25/20 16:58 Home Medications: Ambulatory Orders Lisinopril [Prinivil] 20 mg PO DAILY #30 tablet 10/13/19 Amlodipine Besylate [Norvasc -] 10 mg PO DAILY tablet 03/25/20 Atorvastatin Ca [Lipitor] 80 mg PO HS tablet 03/25/20 Clopidogrel Bisulfate [Plavix] 75 mg PO DAILY #30 tablet 03/25/20 Folic Acid - 1 mg PO DAILY tablet 03/25/20 Nicotine Patch [Nicoderm Patch -] 14 mg TD DAILY patch 03/25/20 Thiamine HCl [Vitamin B1 -] 100 mg PO DAILY 03/25/20 Anemia: No Asthma: No Cancer: No Cardiac Disorders: No CVA: Yes (08/2017) COPD: No CHF: No Dementia: No Diabetes: No GI Disorders: No Disorders: No HTN: Yes Hypercholesterolemia: Yes Kidney Stones: No Liver Disease: No Seizures: No Thyroid Disease: No - Surgical History Abdominal Surgery: No Appendectomy: No Cardiac Surgery: No Cholecystectomy: No Lung Surgery: No Neurologic Surgery: No Orthopedic Surgery: No - Reproductive History Testicular Surgery: No - Psycho-Social/Smoking History Smoking History: Unknown if ever smoked Have you smoked in the past 12 months: Yes Number of Cigarettes Smoked Daily: 20 Cigars Per Day: 0 'Breaking Loose' booklet given: 10/12/19 ED Treatment Course - LABORATORY CBC & Chemistry Diagram: 03/25/20 05:18 03/25/20 05:18 Medical Decision Making - Medical Decision Making 03/24/20 01:16 HPI: 49yo M hx CVA (no residual deficits), traumatic enucleation L eye, HTN, HLD, schizophrenia bipolar, noncompliance with meds, polysubstance abuse (PCP, alcohol, MJ, last use all today) sent from [facility] detox (not admitted yet) for intermittent substernal chest pains since this afternoon sometimes exertional sometimes at rest no pain meds tries hx similar sx unknown cause associated with diaphoresis and nausea. In [place] prior today. Went to [facility] for detox, last detox June last year, hx withdrawals but no hx withdrawal seizures. FHx mother [place] in 50s. ROS: Constitutional: Positive for diaphoresis. Negative for chills, fever, fatigue. HENT: Negative for sore throat, rhinorrhea, congestion. Eyes: Negative for visual disturbance. Respiratory: Negative for shortness of breath, cough, and wheezing. Cardiovascular: Positive for chest pain. Negative for palpitations, and leg swelling. Gastrointestinal: Positive for nausea. Negative for abdominal pain, blood in stool, constipation, diarrhea, and vomiting. Genitourinary: Negative for dysuria, flank pain, and hematuria. Musculoskeletal: Negative for myalgias, back pain, and neck pain. Skin: Negative for rash. Neurological: Negative for light-headedness, dizziness, vertigo, syncope, weakness, numbness and headaches. Psychiatric/Behavioral: Positive for polysubstance abuse. Negative for conf usion. PE: Gen: Alert, NAD, comfortable-appearing. HEENT: L eye enucleated, R pupil round reactive to light with EOMI, dry MM, NCAT. No conjunctival pallor. Sclera are non-icteric. CV: Regular rate and rhythm. No murmurs, rubs, or gallops. PULM: No resp distress. CTAB, no wheezes, rales, or rhonchi. ABD: soft, NT/ND, no rebound tenderness or guarding, no CVA tenderness. BACK: No TTP of c/t/l-spine. No step-offs or deformities. MSK: No bony deformities. 2+ pulses in all extremities. NEURO: AAOx3. PERRL. No gross CN deficits. Strength and sensation grossly intact throughout. EXTREMITIES: No cyanosis. No clubbing. No edema. No calf tenderness. PSYCH: Normal mood and thought pattern. SKIN: Warm and dry. Normal capillary refill. No rashes. No jaundice. MDM: 49yo M hx CVA (no residual deficits), traumatic enucleation L eye, HTN, HLD, schizophrenia bipolar, noncompliance with meds, polysubstance abuse (PCP, alcohol, MJ, last use all today) sent from [facility] detox (not admitted yet) for intermittent substernal chest pains since this afternoon. Hypertensive, bradycardic, otherwise hemodynamically stable, afebrile. Ddx: ACS/UT, angina, arrhythmia, PNA, metabolic derangement, anemia, infection -Aspirin -EKG: sinus bradycardia, 54bpm, normal axis, QTc 445ms, no e/o acute ischemia -CXR: no acute pathology -ACS labs -Admit tele obs ACS r/o Discharge - Discharge Information Problems reviewed: Yes Clinical Impression/Diagnosis: Alcohol dependence, PCP dependence, Smokes cigarettes, Chest pain Condition: Improved Disposition: I.P. ALCOHOL/SUBS ABUSE REHAB - Admission Yes - Follow up/Referral - Patient Discharge Instructions - Post Discharge Activity
[2020-03-24 00:24] VITALS: BMI 28.5
[2020-03-24] MEDS ORDERED: ASPIRIN 81 MG CHEWABLE TABLETS PO ONE (01:08)
[2020-03-24 01:11] LABS: BASO % 0.4 % (0-2.0); EOS % 2.8 % (0-4.5); HEMATOCRIT 39.8 % (35.4-49); HEMOGLOBIN 12.9 GM/dL (11.7-16.9); LYMPH % 22.1 % (8-40); MCH 27.1 pg (25.7-33.7); MCHC 32.5 g/dl (32.0-35.9); MEAN CELL VOLUME 83.6 fl (80-96); MEAN PLT VOLUME 8.2 fl (7.5-11.1); MONO % 7.8 % (3.8-10.2); NEUT % 66.9 % (42.8-82.8); PLATELET COUNT 176 K/MM3 (134-434); RBC 4.77 M/mm3 (4.00-5.60); RDW 14.8 % (11.9-15.9); WHITE BLOOD COUNT 8.2 K/mm3 (4.0-10.0)
--- NOTE | 2020-03-24 01:12 | PDOC ---
Attending Attestation - Resident Resident Name: Kalee Jefferson - ED Attending Attestation I have performed the following: I have examined & evaluated the patient, The case was reviewed & discussed with the resident, I agree w/resident's findings & plan, Exceptions are as noted - HPI HPI: 04/06/20 20:08 49M HTN, HLD, bipolar, cva, psa here with CP. Episodic L sided non radiating a/w sob, diaphoresis, headache worsened by exertion but still occurs at rest. - Physicial Exam PE: 04/06/20 20:11 NAD, AOx3 NCAT R sided PERRL, EOMI, L eye enucelated Neck supple Slow HR, normal rhythm Abd soft, nt, nd Ext x4 FROM, strength 5/5 NFD - Medical Decision Making 04/06/20 20:17 typical chest pain at rest, elevated BP in triage unstable angina/ACS, end organ damage from BP f/u labs, ekg, cxr, cardiac markers admit to tele Discharge - Discharge Information Problems reviewed: Yes Clinical Impression/Diagnosis: Alcohol dependence, PCP dependence, Smokes cigarettes, Chest pain Condition: Improved Disposition: I.P. ALCOHOL/SUBS ABUSE REHAB - Follow up/Referral - Patient Discharge Instructions - Post Discharge Activity
[2020-03-24 01:19] LABS: INR 1.06 (0.83-1.09); PROTHROMBIN TIME (PATIENT) 12.5 SEC (9.7-13.0)
[2020-03-24 01:21] LABS: ACTIVATED PTT 26.5 SECONDS (25.2-36.5)
[2020-03-24 01:37] LABS: ALBUMIN 3.9 g/dl (3.4-5.0); ALK PHOS 56 U/L (45-117); ANION GAP 9 MMOL/L (8-16); BILIRUBIN,TOTAL 0.6 mg/dL (0.2-1); CALCIUM 8.7 mg/dL (8.5-10.1); CHLORIDE 103 mmol/L (98-107); CO2 27 mmol/L (21-32); CREATININE 0.9 mg/dL (0.55-1.3); GLUCOSE,RANDOM 93 mg/dL (74-106); POTASSIUM 3.7 mmol/L (3.5-5.1); SGOT/AST 16 U/L (15-37); SGPT/ALT 15 U/L (13-61); SODIUM 139 mmol/L (136-145); TOT PROT 6.9 g/dl (6.4-8.2)
[2020-03-24] MEDS ORDERED: ASPIRIN 81 MG CHEWABLE TABLETS ONE (02:37)
--- NOTE | 2020-03-24 04:10 | HP ---
CHIEF COMPLAINT: I have chest pain PCP: HISTORY OF PRESENT ILLNESS: Gentry Pyle is a 49 Y M with a PMH of CVA, HTN, HLD, schizophrenia, bipolar, polysubstance abuse(PCP, Alcohol, Marijuana), and traumatic enucleation L. eye, presents to ER with complains of chest pain. Patient was seen today at [facility] for detox, during which he was found to have BP 182/114, with Headache and L.sided chest pain. Patient reports that the chest pain started this afternoon and still present. The pain in episodic and Sharp in nature, localized to Left side, non radiating. He reports 10/10 at worse( with walking) and 5/10 at rest(in ED). He states that when the chest pain came on, he also experienced a SOB, sweating, and headache. At this time, he reports a current headache, but denies any SOB, palpitations, Nausea, vomiting, fever, chills, or dizziness. Drug Hx: admits to use of Alcohol: everyday, 6 beers or 1 bottle of liquor/day, for many years, last use this morning, can be without alcohol for weeks, w/o any withdrawal sxs. PCP: everyday, $10 bag/day, many years, last use this morning. Nicotine: everyday, smokes 1 pck/day since 18 years of age. Denies use of cocaine or opioids. Family Hx is significant for Mother-DM, SD @ age 50. Previous visit: 01/10/20- pt presented to ER with complaints of L. upper extremity weakness. CTA revealed Acute R. MCA infarct. Out of window for TPA, transfered to tertiary care. Pt reports that he went to rehab. ER patient received ASA 324mg ER course was notable for: (1) BP162/98 (2) P54 (3) Recent Travel:Denies PAST MEDICAL HISTORY:As above in HPI PAST SURGICAL HISTORY:As above in HPI Social History: Smoking:As above in HPI Alcohol:As above in HPI Drugs: as above in HPI Allergies No Known Allergies Allergy (Verified 03/24/20 00:11) HOME MEDICATIONS: Home Medications Medication Instructions Recorded Hydrochlorothiazide [Hctz -] 25 mg PO DAILY #30 tablet 10/13/19 Lisinopril [Prinivil] 20 mg PO DAILY #30 tablet 10/13/19 REVIEW OF SYSTEMS CONSTITUTIONAL: Absent: fever, chills, diaphoresis, generalized weakness, malaise, loss of carly etite, weight change HEENT: Absent: rhinorrhea, nasal congestion, throat swelling, difficulty swallowing, visual changes CARDIOVASCULAR: Present: chest pain Absent: syncope, palpitations, irregular heart rate, lightheadedness, peripheral edema RESPIRATORY: Absent: cough, shortness of breath, dyspnea with exertion, orthopnea, wheezing GASTROINTESTINAL: Absent: abdominal pain, abdominal distension, nausea, vomiting, diarrhea, constipation GENITOURINARY: Absent: dysuria, frequency, urgency, hesitancy, hematuria MUSCULOSKELETAL: Absent: myalgia, arthralgia, joint swelling, back pain, neck pain SKIN: Absent: rash, itching, pallor NEUROLOGIC: Absent: headache, focal weakness or paresthesias, dizziness, unsteady gait, seizure, mental status changes, bladder or bowel incontinence PHYSICAL EXAMINATION Vital Signs - 24 hr 03/24/20 03/24/20 00:11 03:00 Temperature 97.7 F 97.8 F Pulse Rate 54 L Pulse Rate [ 51 L Apical] Respiratory 16 19 Rate Blood Pressure 162/98 Blood Pressure 163/95 [Left Arm] O2 Sat by Pulse 99 98 Oximetry (%) GENERAL: Awake, alert, and fully oriented, in no acute distress. HEAD: Normal with no signs of trauma. EYES: R. pupil reactive to light. enucleated L. eye , extraocular movements intact, sclera anicteric, conjunctiva clear. EARS, NOSE, THROAT: Ears normal, nares patent, oropharynx clear without exudates. Moist mucous membranes. NECK: Normal range of motion, supple without lymphadenopathy, JVD, or masses. LUNGS: Breath sounds equal, clear to auscultation bilaterally. No wheezes, and no crackles. No accessory muscle use. HEART: (Bradycardia) slow rate and regular rhythm, normal S1 and S2 without murmur, rub or gallop. ABDOMEN: Soft, nontender, not distended, normoactive bowel sounds, no guarding, no rebound, no masses. MUSCULOSKELETAL: Normal range of motion at all joints. No bony deformities or tenderness. No CVA tenderness. UPPER EXTREMITIES: 2+ pulses, warm, well-perfused. No cyanosis. No clubbing. No peripheral edema. LOWER EXTREMITIES: 2+ pulses, warm, well-perfused. No calf tenderness. No peripheral edema. NEUROLOGICAL: L. UE strength 3/5, motor and sensation is intact PSYCHIATRIC: Cooperative. Good eye contact. Appropriate mood and affect. SKIN: Warm, dry, normal turgor, no rashes or lesions noted, normal capillary refill. Laboratory Results - last 24 hr 03/24/20 03/24/20 03/24/20 00:59 00:59 00:59 WBC 8.2 RBC 4.77 Hgb 12.9 Hct 39.8 MCV 83.6 MCH 27.1 MCHC 32.5 RDW 14.8 Plt Count 176 MPV 8.2 Absolute Neuts (auto) 5.5 Neutrophils % 66.9 Lymphocytes % 22.1 D Monocytes % 7.8 Eosinophils % 2.8 D Basophils % 0.4 Nucleated RBC % 0 PT with INR 12.50 INR 1.06 PTT (Actin FS) 26.5 Sodium 139 Potassium 3.7 Chloride 103 Carbon Dioxide 27 Anion Gap 9 BUN 12.0 Creatinine 0.9 Est GFR (CKD-EPI)AfAm 116.65 Est GFR (CKD-EPI)NonAf 100.64 Random Glucose 93 Calcium 8.7 Total Bilirubin 0.6 AST 16 ALT 15 Alkaline Phosphatase 56 Creatine Kinase 168 Creatine Kinase Index 0.7 CK-MB (CK-2) 1.2 Troponin I < 0.02 Total Protein 6.9 Albumin 3.9 ASSESSMENT/PLAN: 49 Y M with a PMH of CVA, HTN, HLD, polysubstance abuse (PCP, Alcohol, Marijuana) presents to ER from [facility] for chest pain, headache and elevated BP. In ED BP162/98 with P54. Repeated v/s: BP 190/103 with P60. Patient is admitted to Tele-Obs for workup/management of his chest pain and elevated BP. #Unstable angina - Patient report 5/10 chest pain at rest - possibly 2/2 drug induced vs r/o ACS - EKG: Sinus bradycardia, nonspecific T wave abnormalities, QTC 445, Vent rate 54, IA 176 - f/u AM EKG - Continue ASA 81 mg, Lipitor 80 mg - f/u lipid panel, HbA1c, Utox - trend trops 1st <0.02, CK-MB: 1.2 - U/S echo, does not fit new guidelines, if symptoms persists, patient may benefit from echo eval. #Hypertensive urgency #HTN - BP 190/103 - patient is non-compliant with home meds. - started Novarsc 10 mg and Lisinopril 20 mg qd - Continue to monitor v/s #polysubstance abuse - Alcohol, PCP, marijuana, nicotine - CIWA 2 - no active withdrawal symptoms - Ordered multivitamin, thiamine, and Folic acid qd - continue to monitor, fall/seizure/aspiration precautions in place - ordered nicotine patch #Sinus Bradycardia - unclear etiology, Chronic - EKG: sinus Bradycardia - Avoid Beta Blockers - Continue to monitor #FEN - No standing fluid - Continue to monitor electrolytes - Sodium controlled diet #DVT PPX - Lovenox 40 mg SQ QD #DISPO: - Continue to monitor on Tele-Obs Visit type - Emergency Visit Emergency Visit: Yes ED Registration Date: 03/24/20 Care time: The patient presented to the Emergency Department on the above date and was hospitalized for further evaluation of their emergent condition. - New Patient This patient is new to me today: Yes Date on this admission: 03/26/20 - Critical Care Critical Care patient: No ATTENDING PHYSICIAN STATEMENT I saw and evaluated the patient. I reviewed the resident's note and discussed the case with the resident. I agree with the resident's findings and plan as documented. SUBJECTIVE: OBJECTIVE: ASSESSMENT AND PLAN:
[2020-03-24] MEDS ORDERED: MULTIVITAMINS (DAILY MVI) TABLET (FP) PO ONE (04:13)
[2020-03-24] MEDS ORDERED: FOLIC ACID 1 MG TABLET (FP) PO ONE (04:14)
[2020-03-24] MEDS ORDERED: THIAMINE HCL 100 MG TABLET (FP) PO ONE (04:14)
[2020-03-24] MEDS ORDERED: amLODIPine BESYLATE 10 MG TABLET (FP) PO ONE (04:15)
[2020-03-24] MEDS ORDERED: LISINOPRIL 20 MG TABLET (FP) PO ONE (04:15)
[2020-03-24] MEDS ORDERED: MULTIVITAMINS (DAILY MVI) TABLET (FP) ONE (04:59)
[2020-03-24] MEDS ORDERED: amLODIPine BESYLATE 5 MG TABLET (FP) ONE (04:59)
[2020-03-24] MEDS ORDERED: THIAMINE HCL 100 MG TABLET (FP) ONE (04:59)
[2020-03-24] MEDS ORDERED: LISINOPRIL 20 MG TABLET (FP) ONE (05:00)
[2020-03-24] MEDS ORDERED: FOLIC ACID 1 MG TABLET (FP) ONE (05:00)
[2020-03-24 06:02] LABS: BASO % 0.4 % (0-2.0); EOS % 3.1 % (0-4.5); HEMATOCRIT 39.3 % (35.4-49); HEMOGLOBIN 12.6 GM/dL (11.7-16.9); LYMPH % 24.6 % (8-40); MCH 26.7 pg (25.7-33.7); MCHC 32.1 g/dl (32.0-35.9); MEAN CELL VOLUME 83.1 fl (80-96); MEAN PLT VOLUME 8.3 fl (7.5-11.1); MONO % 8.4 % (3.8-10.2); NEUT % 63.5 % (42.8-82.8); PLATELET COUNT 176 K/MM3 (134-434); RBC 4.73 M/mm3 (4.00-5.60); RDW 14.8 % (11.9-15.9); WHITE BLOOD COUNT 7.3 K/mm3 (4.0-10.0)
[2020-03-24 06:30] LABS: ALBUMIN 3.6 g/dl (3.4-5.0); ALK PHOS 52 U/L (45-117); ANION GAP 7 MMOL/L (8-16); BILIRUBIN,TOTAL 0.7 mg/dL (0.2-1); BLOOD UREA NITROGEN 10.8 mg/dL (7-18); CALCIUM 8.8 mg/dL (8.5-10.1); CHLORIDE 105 mmol/L (98-107); CHOLESTEROL 153 mg/dL (50-200); CO2 28 mmol/L (21-32); CREATININE 0.9 mg/dL (0.55-1.3); GLUCOSE,RANDOM 86 mg/dL (74-106); HDL CHOLESTEROL 42 mg/dL (40-60); LDL CHOLESTEROL (ONLY SJRH) 96 mg/dL (5-100); MAGNESIUM 2.2 mg/dL (1.8-2.4); PHOSPHOROUS 3.9 mg/dL (2.5-4.9); POTASSIUM 3.8 mmol/L (3.5-5.1); SGOT/AST 11 U/L (15-37); SGPT/ALT 12 U/L (13-61); SODIUM 140 mmol/L (136-145); TOT PROT 6.5 g/dl (6.4-8.2); TRIGLYCERIDES 74 mg/dL (0-150)
--- NOTE | 2020-03-24 06:55 | PN ---
Teaching Attending Note Name of Resident: David Pisano ATTENDING PHYSICIAN STATEMENT I saw and evaluated the patient. I reviewed the resident's note and discussed the case with the resident. I agree with the resident's findings and plan as documented. SUBJECTIVE: 49 years old male with a PMH of CVA, HTN, HLD, schizophrenia, bipolar, polysubs tance abuse(PCP, Alcohol, Marijuana), and traumatic enucleation L. eye presented to Ed with chest pain. According to patient started this afternoon, on and off, left sided, sharp, non radiating. Associated symptoms were nausea and diaphoresis he was found to have elevated BP 182/114 at [facility] detox associated headache. OBJECTIVE: Last Vital Signs Temp Pulse Resp BP Pulse Ox 97.5 F L 46 L 15 153/91 97 03/24/20 06:26 03/24/20 06:26 03/24/20 06:26 03/24/20 06:26 03/24/20 06:26 Gen: Alert, NAD, comfortable-appearing. HEENT:right pupil reactive to light EOMI, NCAT. No conjunctival pallor. Sclera are non-icteric. CV: Bradycardic, No murmurs, rubs, or gallops. no chest wall tenderness PULM: No resp distress. CTAB, no wheezes, rales, or rhonchi. ABD: soft, NT ND, no rebound tenderness, no CVA tenderness, normoactive BS. BACK: No TTP of c/t/l-spine. No step-offs or deformities. MSK: No bony deformities. 2+ pulses in all extremities. NEURO: AAOx3. Left arm weakness - residual deficit from old stroke, No gross CN deficits. EXTREMITIES: No cyanosis. No clubbing. No edema. SKIN: Warm and dry. Normal capillary refill. No rashes. No jaundice. EKG: Sinus bradycardia, nonspecific T wave abnormalities, QTC 445, Vent rate 54, PA 176 labs, imaging reviewed ASSESSMENT AND PLAN: Chest pain r/o ACS hypertensive urgency polysubsatnce abuse Sinus bradycardia Observation to tele serial cardiac enzymes, EKG start amlodipine 10 mg and lisinopril 20 mg titrate as needed will avoid BB due to bradycardia ECHO based on troponin trend and chest pain status. ASA 325 received. cont ASA 81 CIWA thiamine, folic acid DVT PPX lipid panel HBa1c utox Discussed with resident staff
[2020-03-24 07:11] LABS: PH,URINE 5.5 (5.0-8.0); URINE APPEARANCE CLEAR; URINE BILIRUBIN NEGATIVE (NEGATIVE); URINE COLOR YELLOW; URINE GLUCOSE (UA) NEGATIVE (NEGATIVE); URINE KETONE NEGATIVE (NEGATIVE); URINE LEUK ESTERASE NEGATIVE (NEGATIVE); URINE NITRITE NEGATIVE (NEGATIVE); URINE PROTEIN NEGATIVE (NEGATIVE)
[2020-03-24 07:36] LABS: METHADONE, UR NEGATIVE ng/ml (CUTOFF=300); OPIATES, URI NEGATIVE ng/ml (CUTOFF=300); URINE AMPHETAMINES NEGATIVE ng/ml (CUTOFF=500); URINE BARBITURATES NEGATIVE ng/ml (CUTOFF=200)
[2020-03-24 07:37] LABS: COCAINE, UR NEGATIVE ng/ml (CUTOFF=300); URINE BENZODIAZEPINES NEGATIVE ng/ml (CUTOFF=200)
[2020-03-24] MEDS ORDERED: chlordiazePOXIDE HCL 10 MG CAPSULE PO PRN (07:40)
[2020-03-24 07:50] LABS: PHENCYCLIDINE,URINE POSITIVE ng/ml (CUTOFF=25)
[2020-03-24] MEDS ORDERED: FOLIC ACID INJECTION - 1 MG, THIAMINE HCL 100 MG, MULTIVIT INJECTION ADULT 10 ML in SOD... IVPB ONE (09:00)
[2020-03-24] MEDS ORDERED: MULTIVITAMINS (DAILY MVI) TABLET (FP) PO SCH (10:00)
[2020-03-24] MEDS ORDERED: amLODIPine BESYLATE 10 MG TABLET (FP) PO SCH (10:00)
[2020-03-24] MEDS ORDERED: ASPIRIN 81 MG CHEWABLE TABLETS PO SCH (10:00)
[2020-03-24] MEDS ORDERED: FOLIC ACID 1 MG TABLET (FP) PO SCH (10:00)
[2020-03-24] MEDS ORDERED: THIAMINE HCL 100 MG TABLET (FP) PO SCH (10:00)
[2020-03-24] MEDS ORDERED: LISINOPRIL 10 MG TABLET (FP) PO SCH (10:00)
[2020-03-24] MEDS: NICOTINE 14 MG/24 HOURS TOPICAL PATCH TD SCH (10:03)
[2020-03-24] MEDS ORDERED: ENOXAPARIN NA (PORCINE) 40 MG/0.4 ML DISP.SYRIN SQ ONE (10:15)
[2020-03-24] MEDS: ENOXAPARIN NA (PORCINE) 40 MG/0.4 ML DISP.SYRIN SQ SCH (10:19)
--- NOTE | 2020-03-24 11:13 | EKG ---
Test Reason : Blood Pressure : / mmHG Vent. Rate : 054 BPM Atrial Rate : 054 BPM P-R Int : 176 ms QRS Dur : 082 ms QT Int : 470 ms P-R-T Axes : 069 -16 052 degrees QTc Int : 445 ms SINUS BRADYCARDIA NONSPECIFIC T WAVE ABNORMALITY ABNORMAL ECG Confirmed by CLAU BIRMINGHAM MD ([id number]) on 03/24/2020 11:12:53 AM Referred By: Confirmed By:CLAU BIRMINGHAM MD
[2020-03-24] MEDS ORDERED: chlordiazePOXIDE HCL 25 MG CAPSULE ONE (13:10)
--- NOTE | 2020-03-24 13:11 | PN ---
Teaching Attending Note Name of Resident: Gabe Aguilar ATTENDING PHYSICIAN STATEMENT I saw and evaluated the patient. I reviewed the resident's note and discussed the case with the resident. I agree with the resident's findings and plan as documented. SUBJECTIVE: poor historian. Gives different stories to different people No fever or chills. reported that his cp resolved last night after lasting few min , and now at time interview it recurred. it is sharp, in a small area in L sided chest . causes numbness in L am. No N/V . feels SOB. not cleasr on what he was doing when initial CP started, he said he was drinking in his neighborhood, then he said he was in [facility] checking in . He denies h/o CP or exertional sx . he has an incomplete stress test in Oct, and had an echo. Had a stroke in after which he was transferred to [facility]. he says upon discharge he was only prescribed HCTZ and has not been using it as he ran out and fell to follow up . he reports L sided weakness after his dc denies cocaine use . denies STEVENS he reported worsening weakness in L arm to the resident OBJECTIVE: NAD, awake, alert, cooperative. L eye closed with deformity. MMM, no facial droop. EOMI in R side CV: RRR, no MRG. Lungs: CTAB ABd: soft, NT, ND, nl BS . Liver could not be felt Ext : No edema or erythema on upper or lower extremities Neuro : EOMI in R eye . no facial droop, tongue at mid line . strength RUE:5/5 shoulder shrug, flexion, abduction , and biceps/triceps. nl hand english instructor LUE:5/5 biceps/triceps. 4/5 shoulder abduction , and flexion . weak hand english instructor LEs: 5/5 hip flexion , knee flexion /extension , and ankle dorsiflexion/plantar flexion reflexes : 2+ biceps and knee jerk b/l TTP in L sided chest wall ASSESSMENT AND PLAN: 49 y/o man with h/o ETOH, use , PSA, non compliance , CVA 01/18 , HTN, schizophrenia, bipolar, HLp, who presented from [facility] with CP, HTN, and STEVENS . 1- CP : unclear etiology, ? drugs Vs real angina moises with his personal and family risk factors - repeat EKG and trop now - cont ASA , statin, and avoid BB - will obtain a stress test but not today give his cp. - no need to repeat echo . old echo in 10/21 reviewed. - avoid B due to bradycardia. 2- HTN emergency: due to non compliance - cont norvasc and lisinopril 3- Subacute stoke ON CT. likely due to all the risk factors, and uncontrolled HTN. - out of the window for TPA - obtain US of carotids. - secondary prophylaxis: statin, ACEI, and ASA - counseled about smoking and drug use - monitor on tele r/o Afib - consult neuro 4- ETOH use: no signs of withdrawal - start librium - received IV thiamin in ER - monitor electrolytes . 5- sinus bradycardia . monitor . avoid BB dispo : HLOC. tele monitoring
[2020-03-24] MEDS: chlordiazePOXIDE HCL 25 MG CAPSULE PO SCH ×2 (13:16→21:05)
--- NOTE | 2020-03-24 15:12 | CON.CARD ---
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: Yes: CVA (reportedly) Cardio/Vascular: Yes: CHF (diastolic ) Psych: Yes: Addictions, Bipolar - Alcohol/Substance Use Hx Alcohol Use: Yes History of Substance Use: reports: Cocaine - Smoking History Smoking history: Unknown if ever smoked Have you smoked in the past 12 months: Yes Aproximately how many cigarettes per day: 20 Home Medications - Allergies Allergies/Adverse Reactions: Allergies Allergy/AdvReac Type Severity Reaction Status Date / Time No Known Allergies Allergy Verified 03/24/20 00:11 - Home Medications Home Medications: Ambulatory Orders Lisinopril [Prinivil] 20 mg PO DAILY #30 tablet 10/13/19 Vital Signs: Vital Signs Temperature 97.5 F L 03/24/20 06:26 Pulse Rate 58 L 03/24/20 08:50 Respiratory Rate 16 03/24/20 08:50 Blood Pressure 141/80 03/24/20 08:50 O2 Sat by Pulse Oximetry (%) 96 03/24/20 12:20 - Other Data Labs, Other Data: CBC, BMP 03/24/20 05:26 03/24/20 05:26 INR, PTT INR 1.06 (0.83-1.09) 03/24/20 00:59 Troponin, BNP 03/24/20 03/24/20 03/24/20 00:59 05:26 08:45 Troponin I < 0.02 < 0.02 0.02 03/24/20 12:00 Troponin I < 0.02 Troponin, BNP 03/24/20 03/24/20 03/24/20 00:59 05:26 08:45 Troponin I < 0.02 < 0.02 0.02 03/24/20 12:00 Troponin I < 0.02
--- NOTE | 2020-03-24 15:15 | CON.CARD ---
Consult Consult Specialty:: Cardiology Referred by:: Hospitalist Reason for Consultation:: Chest pain, abnormal ekg - History of Present Illness Chief Complaint: chest pain, htn History of Present Illness: 49 year old man with a pmh of polysubstance abuse including current PCP, prior heroine and cocaine and etoh, HTN, HLD, CVA 12/2019, L eye prosthesis, smoker prior admission 10/2019 with chest pain, NST was slightly sub target HR but no ischemia and echo showed normal LVEF, now again admitted with chest pain. Pt admits to drinking etoh and is positive for PCP currently. Pt was seen and examined. States that chest pain started yesterday, is left sided, and has been continuous since yesterday including currently during the e xam. denies sob, palpitations, pnd, orthopnea, or LE edema. - History Source History Provided By: Patient, Medical Record Limitations to Obtaining History: Poor Historian - Past Medical History [employer]: Yes: CVA (reportedly) Cardio/Vascular: Yes: CHF (diastolic ) Psych: Yes: Addictions, Bipolar - Alcohol/Substance Use Hx Alcohol Use: Yes History of Substance Use: reports: Cocaine - Smoking History Smoking history: Unknown if ever smoked Have you smoked in the past 12 months: Yes Aproximately how many cigarettes per day: 20 Home Medications - Allergies Allergies/Adverse Reactions: Allergies Allergy/AdvReac Type Severity Reaction Status Date / Time No Known Allergies Allergy Verified 03/24/20 00:11 - Home Medications Home Medications: Ambulatory Orders Lisinopril [Prinivil] 20 mg PO DAILY #30 tablet 10/13/19 Family Medical History Family History: Denies Review of Systems - Review of Systems Constitutional: denies: No Symptoms, Chills, Diaphoresis, Fever, Lethargy, Loss of Appetite, Malaise, Night Sweats, Unintentional Wgt. Loss, Weakness, Other Eyes: denies: No Symptoms, Blind Spots, Blurred Vision, Double Vision, Eye Pain, Floaters, Photophobia, Recent Change in Vision, Other HENT: denies: No Symptoms, Difficult Swallowing, Ear Discharge, Ear Pain, Epistaxis, Gingival Bleeding, Hearing Loss, Mouth Swelling, Nasal Congestion, Ocular Prosthesis, Throat Pain, Toothache, Ringing in Ears, Other Neck: denies: No Symptoms, Decreased ROM, Lumps, Pain on Movement, Stiffness, Swollen Glands, Tenderness, Other Cardiovascular: reports: Chest Pain. denies: No Symptoms, Edema, Palpitations, Shortness of Breath, Other Respiratory: denies: No Symptoms, Cough, Exercise Intolerance, Hemoptysis, Orthopnea, PND, Snoring, SOB, SOB on Exertion, Wheezing, Other Gastrointestinal: denies: No Symptoms, Abdominal Pain, Bloating, Constipation, Diarrhea, Dysphagia, Indigestion, Melena, Nausea, Rectal Bleeding, Vomiting, Vomiting Blood, Other Genitourinary: denies: No Symptoms, Burning, Discharge, Dysuria, Flank Pain, Frequency, Hematuria, Incontinence, Lesions, Menses, Pain, Testicular Mass, Testicular Pain, Testicular Swelling, Urgency, Vaginal Bleeding, Other Breasts: denies: No Symptoms Reported, See HPI, Breast Implants, Discharge from Nipple, Lumps, Pain, Skin Changes, Other Musculoskeletal: denies: No Symptoms, Back Pain, Crepitus, Decreased ROM, Extremity Pain, Joint Pain, Joint Swelling, Muscle Pain, Muscle Cramps, Muscle Weakness, Other Integumentary: denies: No Symptoms, Blister, Bruising, Change in Color, Eczema, Erythema, Incision, Lesions, Lump, Pallor, Pruritis, Rash, Wound, Other Neurological: denies: No Symptoms, Change in LOC, Change in Speech, Confusion, Dizziness, Headache, Incoordination, Numbness, Parasthesia, Pre-Existing Deficit, Seizure, Syncope, Tremors, Unsteady Gait, Weakness, Other Endocrine: denies: No Symptoms, Excessive Sweating, Flushing, Increased Hunger, Increased Thirst, Intolerance to Cold, Intolerance to Heat, Unexplained Weight Gain, Unexplained Weight Loss, Other Hematology/Lymphatic: denies: No Symptoms, Easily Bruised, Excessive Bleeding, Swollen Glands, Other Psychiatric: denies: No Symptoms, Altered Sleep Pattern, Anxiety, Depression, Hallucinations, Panic, Paranoia, Suicidal, Other - Risk Factors Known Risk Factors: Yes: Hypercholesterolemia, Hypertension, Smoking Vital Signs: Vital Signs Temperature 97.5 F L 03/24/20 06:26 Pulse Rate 58 L 03/24/20 08:50 Respiratory Rate 16 03/24/20 08:50 Blood Pressure 141/80 03/24/20 08:50 O2 Sat by Pulse Oximetry (%) 96 03/24/20 12:20 Constitutional: Yes: No Distress, Calm HENT: Yes: Atraumatic, Normocephalic Neck: Yes: Supple, Trachea Midline Respiratory: Yes: Regular, CTA Bilaterally. No: Rales, Rhonchi, SOB, Wheezes Gastrointestinal: Yes: Normal Bowel Sounds, Soft. No: Distention, Tenderness Cardiovascular: Yes: Regular Rate and Rhythm. No: Bradycardia, Tachycardia, Pulse Irregular, Gallop, Rub, Varicosities JVD: No Carotid Bruit: No PMI: Non-Displaced Heart Sounds: Yes: S1, S2. No: Split S2, S3, S4, Clicks, Gallop, Rub, Bruit Murmur: No: Systolic Murmur, Diastolic Murmur Musculoskeletal: Yes: WNL Extremities: Yes: WNL Edema: No Peripheral Pulses WNL: Yes Peripheral Pulses: 2+ Left Doralis Pedis, 2+ Right Dorsalis Pedis Neurological: Yes: Alert, Oriented Psychiatric: Yes: Alert, Oriented - Other Data Labs, Other Data: CBC, BMP 03/24/20 05:26 03/24/20 05:26 INR, PTT INR 1.06 (0.83-1.09) 03/24/20 00:59 Troponin, BNP 03/24/20 03/24/20 03/24/20 00:59 05:26 08:45 Troponin I < 0.02 < 0.02 0.02 03/24/20 12:00 Troponin I < 0.02 Troponin, BNP 03/24/20 03/24/20 03/24/20 00:59 05:26 08:45 Troponin I < 0.02 < 0.02 0.02 03/24/20 12:00 Troponin I < 0.02 SB 54bpm, nsst Echo: Report Reviewed Imaging - Results Chest X-ray: Report Reviewed, Image Reviewed EKG: Report Reviewed, Image Reviewed Other: Report Reviewed, Image Reviewed Assessment/Plan 49 year old man with a pmh of polysubstance abuse including current PCP, prior heroine and cocaine and etoh, HTN, HLD, CVA 12/2019, L eye prosthesis, smoker prior admission 10/2019 with chest pain, NST was slightly sub target HR but no ischemia and echo showed normal LVEF, now again admitted with chest pain. Pt admits to drinking etoh and is positive for PCP currently. States that chest pain started yesterday, is left sided, and has been continuous since yesterday including currently during the exam. denies sob, palpitations, pnd, orthopnea, or LE edema. Chest pain-atypical -unlikely ACS -constant pain for 24 hours -cardiac enzymes wnl x 4 -EKG shows nonspecific ST and T wave abnormalities which is not significantly changed from past EKGs dating back to 2014. -admitted for chest pain 10/2019, Exer nuclear stress was slightly sub target at 80% MPHR but showed normal perfusion with no evidence of ischemia. -echo 10/12/19 showed normal LVEF and echo 01/11/20 at [facility] showed normal LVEF -recent R MCA infarct thus was suppossed to be on ASA and plavix at home -polysubstance abuse including active PCP use -does not require additional ischemic evaluation or repeat echo at this time. -in the future once completes detox may consider outpatient repeat stress test. Please call with any questions.
--- NOTE | 2020-03-24 15:28 | EKG ---
Test Reason : Blood Pressure : / mmHG Vent. Rate : 049 BPM Atrial Rate : 049 BPM P-R Int : 180 ms QRS Dur : 080 ms QT Int : 524 ms P-R-T Axes : 071 021 -44 degrees QTc Int : 473 ms SINUS BRADYCARDIA SEPTAL INFARCT , AGE UNDETERMINED NONSPECIFIC T WAVE ABNORMALITY ABNORMAL ECG WHEN COMPARED WITH ECG OF 24-MAR-2020 00:22, SEPTAL INFARCT IS NOW PRESENT T WAVE INVERSION NOW EVIDENT IN INFERIOR LEADS Confirmed by CLAU BIRMINGHAM MD ([id number]) on 03/24/2020 3:27:43 PM Referred By: Confirmed By:CLAU BIRMINGHAM MD
--- NOTE | 2020-03-24 15:30 | EKG ---
Test Reason : Blood Pressure : / mmHG Vent. Rate : 064 BPM Atrial Rate : 064 BPM P-R Int : 174 ms QRS Dur : 078 ms QT Int : 454 ms P-R-T Axes : 077 015 -20 degrees QTc Int : 468 ms NORMAL SINUS RHYTHM SEPTAL INFARCT (CITED ON OR BEFORE 10-JAN-2020) ABNORMAL ECG WHEN COMPARED WITH ECG OF 10-JAN-2020 19:14, NONSPECIFIC T WAVE ABNORMALITY, WORSE IN INFERIOR LEADS NONSPECIFIC T WAVE ABNORMALITY HAS REPLACED INVERTED T WAVES IN LATERAL LEADS Confirmed by CLAU BIRMINGHAM MD ([id number]) on 03/24/2020 3:29:55 PM Referred By: Jefferson Lopez Confirmed By:CLAU BIRMINGHAM MD
--- NOTE | 2020-03-24 17:55 | PN ---
Physical Exam: SUBJECTIVE: Patient seen and examined in the ED. Resting comfortably on RA. No current chest pain. Denies any tremors, sweats, n/v/d. No active signs of withdrawal. OBJECTIVE: Vital Signs Period Temp Pulse Resp BP Sys/Serna Pulse Ox Last 24 Hr 97.5 F-97.8 F 43-58 15-19 126-163/78-98 96-99 GENERAL: The patient is awake, alert, and fully oriented, in no acute distress. HEAD: Normal with no signs of trauma. 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 ENT: moist mucous membranes. NECK: Hepatojugular reflux present LUNGS: Breath sounds equal, clear to auscultation bilaterally HEART: Regular rate and bradycardic rhythm ABDOMEN: Soft, nontender, nondistended, normoactive bowel sounds, hepatomegaly appreciated with palpation and percussion. EXTREMITIES: 2+ pulses, warm, well-perfused, no edema. NEUROLOGICAL: Cranial nerves II through XII grossly intact. Normal speech. SKIN: Warm, dry, no rashes or lesions noted Laboratory Results - last 24 hr 03/24/20 03/24/20 03/24/20 00:59 00:59 00:59 WBC 8.2 RBC 4.77 Hgb 12.9 Hct 39.8 MCV 83.6 MCH 27.1 MCHC 32.5 RDW 14.8 Plt Count 176 MPV 8.2 Absolute Neuts (auto) 5.5 Neutrophils % 66.9 Lymphocytes % 22.1 D Monocytes % 7.8 Eosinophils % 2.8 D Basophils % 0.4 Nucleated RBC % 0 PT with INR 12.50 INR 1.06 PTT (Actin FS) 26.5 Sodium 139 Potassium 3.7 Chloride 103 Carbon Dioxide 27 Anion Gap 9 BUN 12.0 Creatinine 0.9 Est GFR (CKD-EPI)AfAm 116.65 Est GFR (CKD-EPI)NonAf 100.64 Random Glucose 93 Hemoglobin A1c % Calcium 8.7 Phosphorus Magnesium Total Bilirubin 0.6 AST 16 ALT 15 Alkaline Phosphatase 56 Creatine Kinase 168 Creatine Kinase Index 0.7 CK-MB (CK-2) 1.2 Troponin I < 0.02 Total Protein 6.9 Albumin 3.9 Triglycerides Cholesterol Total LDL Cholesterol HDL Cholesterol Urine Color Urine Appearance Urine pH Ur Specific [place] Urine Protein Urine Glucose (UA) Urine Ketones Urine Blood Urine Nitrite Urine Bilirubin Urine Urobilinogen Ur Leukocyte Esterase Opiates Screen Methadone Screen Barbiturate Screen Phencyclidine Screen Ur Amphetamines Screen MDMA (Ecstasy) Screen Benzodiazepines Screen Cocaine Screen U Marijuana (THC) Screen 03/24/20 03/24/20 03/24/20 05:26 05:26 05:26 WBC 7.3 RBC 4.73 Hgb 12.6 Hct 39.3 MCV 83.1 MCH 26.7 MCHC 32.1 RDW 14.8 Plt Count 176 MPV 8.3 Absolute Neuts (auto) 4.6 Neutrophils % 63.5 Lymphocytes % 24.6 Monocytes % 8.4 Eosinophils % 3.1 Basophils % 0.4 Nucleated RBC % 0 PT with INR INR PTT (Actin FS) Sodium 140 Potassium 3.8 Chloride 105 Carbon Dioxide 28 Anion Gap 7 L BUN 10.8 Creatinine 0.9 Est GFR (CKD-EPI)AfAm 116.65 Est GFR (CKD-EPI)NonAf 100.64 Random Glucose 86 Hemoglobin A1c % 5.3 Calcium 8.8 Phosphorus 3.9 Magnesium 2.2 Total Bilirubin 0.7 AST 11 L ALT 12 L Alkaline Phosphatase 52 Creatine Kinase Creatine Kinase Index CK-MB (CK-2) Troponin I < 0.02 Total Protein 6.5 Albumin 3.6 Triglycerides 74 Cholesterol 153 Total LDL Cholesterol 96 HDL Cholesterol 42 Urine Color Urine Appearance Urine pH Ur Specific [place] Urine Protein Urine Glucose (UA) Urine Ketones Urine Blood Urine Nitrite Urine Bilirubin Urine Urobilinogen Ur Leukocyte Esterase Opiates Screen Methadone Screen Barbiturate Screen Phencyclidine Screen Ur Amphetamines Screen MDMA (Ecstasy) Screen Benzodiazepines Screen Cocaine Screen U Marijuana (THC) Screen 03/24/20 03/24/20 03/24/20 06:47 06:47 08:45 WBC RBC Hgb Hct MCV MCH MCHC RDW Plt Count MPV Absolute Neuts (auto) Neutrophils % Lymphocytes % Monocytes % Eosinophils % Basophils % Nucleated RBC % PT with INR INR PTT (Actin FS) Sodium Potassium Chloride Carbon Dioxide Anion Gap BUN Creatinine Est GFR (CKD-EPI)AfAm Est GFR (CKD-EPI)NonAf Random Glucose Hemoglobin A1c % Calcium Phosphorus Magnesium Total Bilirubin AST ALT Alkaline Phosphatase Creatine Kinase Creatine Kinase Index CK-MB (CK-2) Troponin I 0.02 Total Protein Albumin Triglycerides Cholesterol Total LDL Cholesterol HDL Cholesterol Urine Color Yellow Urine Appearance Clear Urine pH 5.5 Ur Specific [place] 1.009 L Urine Protein Negative Urine Glucose (UA) Negative Urine Ketones Negative Urine Blood Negative Urine Nitrite Negative Urine Bilirubin Negative Urine Urobilinogen 1.0 Ur Leukocyte Esterase Negative Opiates Screen Negative Methadone Screen Negative Barbiturate Screen Negative Phencyclidine Screen Positive A* Ur Amphetamines Screen Negative MDMA (Ecstasy) Screen Negative Benzodiazepines Screen Negative Cocaine Screen Negative U Marijuana (THC) Screen Negative 03/24/20 12:00 WBC RBC Hgb Hct MCV MCH MCHC RDW Plt Count MPV Absolute Neuts (auto) Neutrophils % Lymphocytes % Monocytes % Eosinophils % Basophils % Nucleated RBC % PT with INR INR PTT (Actin FS) Sodium Potassium Chloride Carbon Dioxide Anion Gap BUN Creatinine Est GFR (CKD-EPI)AfAm Est GFR (CKD-EPI)NonAf Random Glucose Hemoglobin A1c % Calcium Phosphorus Magnesium Total Bilirubin AST ALT Alkaline Phosphatase Creatine Kinase Creatine Kinase Index CK-MB (CK-2) Troponin I < 0.02 Total Protein Albumin Triglycerides Cholesterol Total LDL Cholesterol HDL Cholesterol Urine Color Urine Appearance Urine pH Ur Specific [place] Urine Protein Urine Glucose (UA) Urine Ketones Urine Blood Urine Nitrite Urine Bilirubin Urine Urobilinogen Ur Leukocyte Esterase Opiates Screen Methadone Screen Barbiturate Screen Phencyclidine Screen Ur Amphetamines Screen MDMA (Ecstasy) Screen Benzodiazepines Screen Cocaine Screen U Marijuana (THC) Screen Active Medications Generic Name Dose Route Start Last Admin Trade Name Freq PRN Reason Stop Dose Admin Amlodipine Besylate 10 mg 03/25/20 10:00 Norvasc - PO DAILY MARTY Atorvastatin Calcium 80 mg 03/24/20 22:00 Lipitor - PO HS MARTY Chlordiazepoxide HCl 25 mg 03/24/20 13:00 03/24/20 13:16 Librium - PO 03/25/20 21:01 25 mg Q8H MARTY Administration Chlordiazepoxide HCl 10 mg 03/27/20 00:00 Librium - PO 03/27/20 23:59 Q12H PRN Signs/symptoms of Withdrawal Chlordiazepoxide HCl 10 mg 03/24/20 07:40 Librium - PO 03/26/20 23:59 Q8H PRN Signs/symptoms of Withdrawal Chlordiazepoxide HCl 15 mg 03/26/20 05:00 Librium - PO 03/26/20 21:01 Q8H MARTY Chlordiazepoxide HCl 10 mg 03/27/20 05:00 Librium - PO 03/27/20 21:01 Q8H MARTY Chlordiazepoxide HCl 10 mg 03/28/20 05:00 Librium - PO 03/28/20 05:01 ONCE ONE Clopidogrel Bisulfate 75 mg 03/25/20 10:00 Plavix - PO DAILY [facility] Enoxaparin Sodium 40 mg 03/24/20 10:00 03/24/20 10:19 Lovenox - SQ Not Given DAILY [facility] Folic Acid 1 mg 03/25/20 10:00 Folic Acid - PO DAILY MARTY Folic Acid 1 mg/ Thiamine HCl 1,000 mls @ 50 mls/hr 03/24/20 09:00 03/24/20 10:14 100 mg/ Multivitamins/Minerals IVPB 03/25/20 04:59 50 mls/hr 10 ml/ Sodium Chloride ONCE ONE Administration Lisinopril 20 mg 03/25/20 10:00 Prinivil PO DAILY [facility] Multivitamins/Minerals/Vitamin C 1 tab 03/25/20 10:00 Tab-A-Vit - PO DAILY [facility] Nicotine 14 mg 03/24/20 10:00 03/24/20 10:03 Nicoderm Patch - TD Not Given DAILY [facility] Thiamine HCl 100 mg 03/25/20 10:00 Vitamin B1 - PO DAILY [facility] IMAGING: CT Head There is no evidence of acute intracranial hemorrhage or mass lesions. A large area of hypodensity is identified in the right frontal taveras radiata extending into the basal ganglia. On a prior study of 01/10/2020, this area was faintly visualized and most likely acute at that time. The current changes are more likely subacute/chronic in nature. Clinical correlation is advised. A follow-up MRI may also be helpful to evaluate for any acute change. No additional acute/chronic infarcts are identified. Subacute/chronic infarct within the right frontal lobe and basal ganglia increased in size since 01/10/2020. ASSESSMENT/PLAN: 49 Y M with a PMH of CVA, HTN, HLD, polysubstance abuse (PCP, Alcohol, & nicotine) presents to ER from [facility] for chest pain, headache and elevated BP. In ED BP162/98 with P54. Repeated v/s: BP 190/103 with P60. Patient is admitted to Tele-Obs for workup/management of his chest pain and elevated BP. Unstable angina - Trops neg x 2 - Cardiology consulted (Dr. Whitley) EKG shows nonspecific ST and T wave abnormalities which is not significantly changed from past EKGs dating back to 2015. does not require additional ischemic evaluation or repeat echo at this time. U/S echo, does not fit new guidelines, if symptoms persists, patient may benefit from echo eval Once completes detox may consider outpatient repeat stress test Continue ASA 81 mg, Lipitor 80 mg - episode of Vtach on monitor in ED, continue to monitor on tele Hypertensive urgency w/ Chronic uncontrolled HTN - currently controlled on norvasc & lisinopril - patient is non-compliant with home meds (discharged from [facility] on hctz, lisinopril, plavix, lipitor, aspirin, hasn't taken any medication) - Continue to monitor Hx Stroke MCA - CT showed enlarged ischemic area from previous CT, unclear if new or from old stroke - obtain US of carotids - no evidence of significant stenosis - counseled about smoking and drug use - consult neuro (Dr. Peña) Polysubstance abuse - Alcohol, PCP, nicotine - CIWA 0 - Librium protocol in place if symptoms of withdrawal being - Continue IVF, thiamine Sinus Bradycardia - unclear etiology, probably chronic based on HRs previous admissions - Avoid Beta Blockers - Continue to monitor FEN - IVF - Continue to monitor electrolytes - Sodium controlled diet DVT PPX - Lovenox 40 mg SQ QD DISPO: - Continue to monitor on Tele-Obs - If improves tomorrow transfer to [facility] for withdrawal - patient wants rehab Visit type - Emergency Visit Emergency Visit: Yes ED Registration Date: 03/24/20 Care time: The patient presented to the Emergency Department on the above date and was hospitalized for further evaluation of their emergent condition. - New Patient This patient is new to me today: Yes Date on this admission: 03/24/20 - Critical Care Critical Care patient: No - Discharge Referral Referred to [facility] Med P.C.: No ATTENDING PHYSICIAN STATEMENT I saw and evaluated the patient. I reviewed the resident's note and discussed the case with the resident. I agree with the resident's findings and plan as documented. SUBJECTIVE: OBJECTIVE: ASSESSMENT AND PLAN:
[2020-03-24] MEDS ORDERED: ATORVASTATIN CA 80 MG TABLET (FP) PO SCH (22:00)
[2020-03-25] MEDS: chlordiazePOXIDE HCL 25 MG CAPSULE PO SCH ×2 (04:30→13:21)
[2020-03-25 06:37] LABS: HEMATOCRIT 42.1 % (35.4-49); HEMOGLOBIN 13.5 GM/dL (11.7-16.9); MCH 26.8 pg (25.7-33.7); MCHC 31.9 g/dl (32.0-35.9); MEAN CELL VOLUME 83.8 fl (80-96); MEAN PLT VOLUME 8.8 fl (7.5-11.1); PLATELET COUNT 172 K/MM3 (134-434); RBC 5.03 M/mm3 (4.00-5.60); RDW 14.2 % (11.9-15.9); WHITE BLOOD COUNT 7.7 K/mm3 (4.0-10.0)
[2020-03-25 07:04] LABS: ALBUMIN 3.6 g/dl (3.4-5.0); BILIRUBIN,TOTAL 0.6 mg/dL (0.2-1); BLOOD UREA NITROGEN 12.3 mg/dL (7-18); CALCIUM 8.8 mg/dL (8.5-10.1); CREATININE 0.8 mg/dL (0.55-1.3); MAGNESIUM 2.2 mg/dL (1.8-2.4); PHOSPHOROUS 4.3 mg/dL (2.5-4.9); POTASSIUM 3.9 mmol/L (3.5-5.1); TOT PROT 6.6 g/dl (6.4-8.2)
[2020-03-25 08:36] VITALS: BP 132/71; PULSE 48; TEMP 97.9
[2020-03-25] MEDS: ENOXAPARIN NA (PORCINE) 40 MG/0.4 ML DISP.SYRIN SQ SCH (09:15)
[2020-03-25] MEDS: NICOTINE 14 MG/24 HOURS TOPICAL PATCH TD SCH (09:18)
[2020-03-25] MEDS ORDERED: MULTIVITAMINS (DAILY MVI) TABLET (FP) PO SCH (10:00)
[2020-03-25] MEDS ORDERED: CLOPIDOGREL BISULFATE 75 MG TABLET (FP) PO SCH (10:00)
[2020-03-25] MEDS ORDERED: THIAMINE HCL 100 MG TABLET (FP) PO SCH (10:00)
[2020-03-25] MEDS ORDERED: ASPIRIN COATED 81 MG TABLET.EC PO SCH (10:00)
[2020-03-25] MEDS ORDERED: LISINOPRIL 20 MG TABLET (FP) PO SCH (10:00)
[2020-03-25] MEDS ORDERED: FOLIC ACID 1 MG TABLET (FP) PO SCH (10:00)
[2020-03-25] MEDS ORDERED: amLODIPine BESYLATE 10 MG TABLET (FP) PO SCH (10:00)
--- NOTE | 2020-03-25 11:10 | PN ---
Physical Exam: SUBJECTIVE: Patient seen and examined OBJECTIVE: Vital Signs Period Temp Pulse Resp BP Sys/Serna Pulse Ox Last 24 Hr 97.7 F-98.0 F 44-54 16-18 114-139/60-80 96-100 GENERAL: The patient is awake, alert, and fully oriented, in no acute distress. HEAD: Normal with no signs of trauma. EYES: PERRL, extraocular movements intact, sclera anicteric, conjunctiva clear. No ptosis. ENT: Ears normal, nares patent, oropharynx clear without exudates, moist mucous membranes. NECK: Trachea midline, full range of motion, supple. LUNGS: Breath sounds equal, clear to auscultation bilaterally, no wheezes, no crackles, no accessory muscle use. HEART: Regular rate and rhythm, S1, S2 without murmur, rub or gallop. ABDOMEN: Soft, nontender, nondistended, normoactive bowel sounds, no guarding, no rebound, no hepatosplenomegaly, no masses. EXTREMITIES: 2+ pulses, warm, well-perfused, no edema. NEUROLOGICAL: Cranial nerves II through XII grossly intact. Normal speech, gait not observed. PSYCH: Normal mood, normal affect. SKIN: Warm, dry, normal turgor, no rashes or lesions noted Laboratory Results - last 24 hr 03/24/20 03/24/20 03/24/20 05:00 12:00 22:38 WBC RBC Hgb Hct MCV MCH MCHC RDW Plt Count MPV Sodium Potassium Chloride Carbon Dioxide Anion Gap BUN Creatinine Est GFR (CKD-EPI)AfAm Est GFR (CKD-EPI)NonAf Random Glucose Calcium Phosphorus Magnesium Total Bilirubin AST ALT Alkaline Phosphatase Troponin I < 0.02 < 0.02 Total Protein Albumin COVID-19 (JANE) Not detected 03/25/20 03/25/20 05:18 05:18 WBC 7.7 RBC 5.03 Hgb 13.5 Hct 42.1 MCV 83.8 MCH 26.8 MCHC 31.9 L RDW 14.2 Plt Count 172 MPV 8.8 Sodium 139 Potassium 3.9 Chloride 106 Carbon Dioxide 28 Anion Gap 5 L BUN 12.3 Creatinine 0.8 Est GFR (CKD-EPI)AfAm 122.43 Est GFR (CKD-EPI)NonAf 105.63 Random Glucose 78 Calcium 8.8 Phosphorus 4.3 Magnesium 2.2 Total Bilirubin 0.6 AST 14 L ALT 13 Alkaline Phosphatase 52 Troponin I Total Protein 6.6 Albumin 3.6 COVID-19 (JANE) Active Medications Generic Name Dose Route Start Last Admin Trade Name Shawn PRN Reason Stop Dose Admin Amlodipine Besylate 10 mg 03/25/20 10:00 03/25/20 09:16 Norvasc - PO 10 mg DAILY MARTY Administration Aspirin 81 mg 03/25/20 10:00 03/25/20 09:17 Ecotrin - PO 81 mg DAILY MARTY Administration Atorvastatin Calcium 80 mg 03/24/20 22:00 03/24/20 21:05 Lipitor - PO 80 mg HS MARTY Administration Chlordiazepoxide HCl 25 mg 03/24/20 13:00 03/25/20 04:30 Librium - PO 03/25/20 21:01 25 mg Q8H MARTY Administration Chlordiazepoxide HCl 10 mg 03/27/20 00:00 Librium - PO 03/27/20 23:59 Q12H PRN Signs/symptoms of Withdrawal Chlordiazepoxide HCl 10 mg 03/24/20 07:40 Librium - PO 03/26/20 23:59 Q8H PRN Signs/symptoms of Withdrawal Chlordiazepoxide HCl 15 mg 03/26/20 05:00 Librium - PO 03/26/20 21:01 Q8H MARTY Chlordiazepoxide HCl 10 mg 03/27/20 05:00 Librium - PO 03/27/20 21:01 Q8H MARTY Chlordiazepoxide HCl 10 mg 03/28/20 05:00 Librium - PO 03/28/20 05:01 ONCE ONE Clopidogrel Bisulfate 75 mg 03/25/20 10:00 03/25/20 09:17 Plavix - PO 75 mg DAILY MARTY Administration Enoxaparin Sodium 40 mg 03/24/20 10:00 03/25/20 09:15 Lovenox - SQ 40 mg DAILY MARTY Administration Folic Acid 1 mg 03/25/20 10:00 03/25/20 09:17 Folic Acid - PO 1 mg DAILY MARTY Administration Lisinopril 20 mg 03/25/20 10:00 03/25/20 09:17 Prinivil PO 20 mg DAILY MARTY Administration Multivitamins/Minerals/Vitamin C 1 tab 03/25/20 10:00 03/25/20 09:17 Tab-A-Vit - PO 1 tab DAILY MARTY Administration Nicotine 14 mg 03/24/20 10:00 03/25/20 09:18 Nicoderm Patch - TD 14 mg DAILY MARTY Administration Thiamine HCl 100 mg 03/25/20 10:00 03/25/20 09:18 Vitamin B1 - PO 100 mg DAILY MARTY Administration ASSESSMENT/PLAN: ATTENDING PHYSICIAN STATEMENT I saw and evaluated the patient. I reviewed the resident's note and discussed the case with the resident. I agree with the resident's findings and plan as documented. SUBJECTIVE: OBJECTIVE: ASSESSMENT AND PLAN:
--- NOTE | 2020-03-25 14:19 | DS ---
Physical Exam: SUBJECTIVE: Patient seen and examined at bedside. No acute events overnight. OBJECTIVE: Vital Signs Period Temp Pulse Resp BP Sys/Serna Pulse Ox Last 24 Hr 97.7 F-98.0 F 44-54 16-18 114-139/60-80 97-100 PHYSICAL EXAM GENERAL: NAD HEAD: AT/NC EYES: s/p Left Eye enucleation. Right Eye EOMI. ENT: MMM NECK: Trachea midline, full range of motion, supple. LUNGS:Clear b/l HEART: RRR S1S2 ABDOMEN: Soft NDNT EXTREMITIES: No CCE LABS Laboratory Results - last 24 hr 03/24/20 03/24/20 03/25/20 05:00 22:38 05:18 WBC 7.7 RBC 5.03 Hgb 13.5 Hct 42.1 MCV 83.8 MCH 26.8 MCHC 31.9 L RDW 14.2 Plt Count 172 MPV 8.8 Sodium Potassium Chloride Carbon Dioxide Anion Gap BUN Creatinine Est GFR (CKD-EPI)AfAm Est GFR (CKD-EPI)NonAf Random Glucose Calcium Phosphorus Magnesium Total Bilirubin AST ALT Alkaline Phosphatase Troponin I < 0.02 Total Protein Albumin COVID-19 (JANE) Not detected 03/25/20 05:18 WBC RBC Hgb Hct MCV MCH MCHC RDW Plt Count MPV Sodium 139 Potassium 3.9 Chloride 106 Carbon Dioxide 28 Anion Gap 5 L BUN 12.3 Creatinine 0.8 Est GFR (CKD-EPI)AfAm 122.43 Est GFR (CKD-EPI)NonAf 105.63 Random Glucose 78 Calcium 8.8 Phosphorus 4.3 Magnesium 2.2 Total Bilirubin 0.6 AST 14 L ALT 13 Alkaline Phosphatase 52 Troponin I Total Protein 6.6 Albumin 3.6 COVID-19 (JANE) HOSPITAL COURSE: Date of Admission:03/24/20 49 y/o man with h/o ETOH use , PSA, non compliance , CVA 01/18 , HTN, schizophrenia, bipolar, HLP, who presented from [facility] with CP, HTN, and STEVENS. Patient's cardiac enzymes were negative x4. Cardiology evaluated patient: " EKG shows nonspecific ST and T wave abnormalities which is not significantly changed from past EKGs dating back to 2015. " Head CT was performed which revealed expansion of an old infarct; patient was continued on Plavix and given a neurology referral. Furthermore, max BP recorded was 190/103; patient was subsequently started on Lisinopril and Amlodipine. Urine tox was + for PCP. Cardiology advised that patient should follow up outpatient for a cardiac stress test. Patient transferred back to [facility] for alcohol detox. Date of Discharge: 03/25/20 Minutes to complete discharge: 35 Discharge Summary Problems reviewed: Yes Reason For Visit: CHEST PAIN,PCP DEPENDENCE Current Active Problems Alcohol dependence (Acute) Chest pain (Acute) Smokes cigarettes (Acute) PCP dependence (Chronic) Condition: Improved - Instructions Diet, Activity, Other Instructions: you were transferred to the hospital from [facility] because you were having chest pain. Blood wok did not reveal any damage to your heart. However, it is c rucial that you follow up with the [facility] in 1 week from in from rehab so that you may undergo a stress test. this is to look in detail at your heart to see if there are any abnormalities. Your EKG did show some abnormalities and this needs to be further worked up. the size of your old stroke has increased You have been started on the new following medications: Lisinopril 20 mg Daily Norvasc 10 mg Daily plavix Atorvastatin 80 mg At bedtime you have been provided with referrals to the [facility] and our hospital primary care clinic. also follow up with Dr. Peña , the neurologist It is important you get a blood test (BMP) within 1 week to check your potassium and kidney levels as Lisinopril may affect these. ( at [facility] ) You will be transferred back to [facility] to resume your alcohol detox and rehab Please return to our emergency Department if you develop chest pain, shortness of breath, nausea/vomiting, or further worsening of your symptoms. Referrals: Rohit Peña MD [Staff Physician] - Sj Rutherford MD [Staff Physician] - 1 Week (Please follow up with Primary Care Doctor at [address] [place] [address]. Referrel attached. ) Kelvin Norwood MD [Staff Physician] - 1 Week (You will need to undergo a stress test. This is to assess the function of your heart. It is crucial you follow up witht the prop making supervisor so that you may undergo this test. ) Disposition: I.P. ALCOHOL/SUBS ABUSE REHAB - Home Medications Comprehensive Discharge Medication List: Ambulatory Orders Lisinopril [Prinivil] 20 mg PO DAILY #30 tablet 02/12/20 Amlodipine Besylate [Norvasc -] 10 mg PO DAILY tablet 03/25/20 Atorvastatin Ca [Lipitor] 80 mg PO HS tablet 03/25/20 Chlordiazepoxide [Librium -] 10 mg PO Q12H PRN capsule 03/25/20 Chlordiazepoxide [Librium -] 10 mg PO Q8H capsule 03/25/20 Chlordiazepoxide [Librium -] 10 mg PO Q8H PRN capsule 03/25/20 Chlordiazepoxide [Librium -] 15 mg PO Q8H capsule 03/25/20 Chlordiazepoxide [Librium -] 25 mg PO Q8H capsule 03/25/20 Clopidogrel Bisulfate [Plavix] 75 mg PO DAILY #30 tablet 03/25/20 Folic Acid - 1 mg PO DAILY tablet 03/25/20 Nicotine Patch [Nicoderm Patch -] 14 mg TD DAILY patch 03/25/20 Thiamine HCl [Vitamin B1 -] 100 mg PO DAILY tablet 03/25/20 This patient is new to me today: No Emergency Visit: Yes ED Registration Date: 03/24/20 Care time: The patient presented to the Emergency Department on the above date and was hospitalized for further evaluation of their emergent condition. Critical Care patient: No - Discharge Referral Referred to [facility] Med P.C.: No ATTENDING PHYSICIAN STATEMENT I saw and evaluated the patient. I reviewed the resident's note and discussed the case with the resident. I agree with the resident's findings and plan as documented. SUBJECTIVE: OBJECTIVE: ASSESSMENT AND PLAN:
--- NOTE | 2020-03-25 14:23 | PN ---
Teaching Attending Note Name of Resident: Juanjose Jeffers ATTENDING PHYSICIAN STATEMENT I saw and evaluated the patient. I reviewed the resident's note and discussed the case with the resident. I agree with the resident's findings and plan as documented. SUBJECTIVE: contt o have L sided poking cp . no SOB , no radiation to arm or neck. NO abd pa in, no SOB . no new weakness. OBJECTIVE: NAD, awake, alert, cooperative. L eye closed with deformity. MMM, no facial droop. EOMI in R side CV: RRR, no MRG. Lungs: CTAB ABd: soft, NT, ND, nl BS . Ext: No edema or erythema on upper or lower extremitie Neuro : EOMI in R eye . no facial droop, tongue at mid line . strength RUE:5/5 shoulder shrug, flexion, abduction , and biceps/triceps. 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 4/5 shoulder abduction , and flexion . weak hand reactor service operator LEs: 5/5 hip flexion , knee flexion /extension, and ankle dorsiflexion/plantar flexion bilaterally knee jerk 2+ biceps, 1+ knee jerk b/l ASSESSMENT AND PLAN: 49 y/o man with h/o ETOH, use , PSA, non compliance , CVA 01/18 , HTN, schizophrenia, bipolar, HLp, who presented from [facility] with CP, HTN, and STEVENS . 1- CP: atypical. case was d/w card by team yesterday - cont asa and statin. - F/u with card after rehab for stress test. value of stress/cath if needed is questionable in settignof drug use and compliance 2- HTN emergency:resolved . due to non compliance - cont norvasc and lisinopril 3- Subacute stoke ON CT.no change in neuro exam today - cont plavix ( d.w Dr. valero yesterday ) - f/u with neuro as out pt 4- ETOH use: no signs of withdrawal - cont librium at [facility] 5- sinus bradycardia . . avoid BB DC to [facility] all above was d/w him. he was encouraged to stop drugs and alcohol
[2020-03-26] MEDS ORDERED: chlordiazePOXIDE 5 MG CAPSULE PO SCH (05:00)
--- NOTE | 2020-03-26 17:34 | EKG ---
Test Reason : Blood Pressure : / mmHG Vent. Rate : 048 BPM Atrial Rate : 048 BPM P-R Int : 188 ms QRS Dur : 076 ms QT Int : 468 ms P-R-T Axes : 077 000 -54 degrees QTc Int : 418 ms SINUS BRADYCARDIA WITH SINUS ARRHYTHMIA SEPTAL INFARCT (CITED ON OR BEFORE 24-MAR-2020) ABNORMAL ECG WHEN COMPARED WITH ECG OF 24-MAR-2020 12:47, NO SIGNIFICANT CHANGE WAS FOUND Confirmed by MD Natacha, Uriel ([id number]) on 03/26/2020 5:33:29 PM Referred By: Confirmed By:Uriel Manzano MD
[2020-03-27] MEDS ORDERED: chlordiazePOXIDE HCL 10 MG CAPSULE PO PRN
[2020-03-27] MEDS ORDERED: chlordiazePOXIDE HCL 10 MG CAPSULE PO SCH (05:00)
[2020-03-28] MEDS ORDERED: chlordiazePOXIDE HCL 10 MG CAPSULE PO ONE (05:00)
== END 2020-03-25 15:04 | disposition other institution (70) | DRG 198 ==
LOC: JER 00:03 → JERBED 01:46 → OBSVTOIN 01:46 → J4W 18:23
PROVIDERS: ADMIT Internal Medicine; ATTEND Internal Medicine
DX: I20.0 Unstable angina (principal); I63.9 Cerebral infarction, unspecified; F20.9 Schizophrenia, unspecified; F31.9 Bipolar disorder, unspecified; I16.0 Hypertensive urgency; Z91.14 Patient's other noncompliance with medication regimen; F12.10 Cannabis abuse, uncomplicated; F10.20 Alcohol dependence, uncomplicated; Z86.73 Personal history of transient ischemic attack (TIA), and cerebral infarction without residual deficits; F17.210 Nicotine dependence, cigarettes, uncomplicated; E78.5 Hyperlipidemia, unspecified; R00.1 Bradycardia, unspecified
CPT/HCPCS: 36415; 70450-TC; 71045-TC-FY; 80053; 80061; 80307; 81003; 82550; 82553; 83036; 83721; 83735; 84100; 84484; 85025; 85027; 85610; 85730; 93005; 93010; 93880-TC; 99285-25; U0003

== ENCOUNTER 2020-03-25 15:30 | Inpatient (IN) | payer OTHER ==
--- NOTE | 2020-03-25 16:10 | HP ---
CIWA Score Nausea/Vomitin-No Nausea/No Vomiting Muscle Tremors: 1-None Visible, but [place] Anxiety: 1-Mildly Anxious Agitation: 0-Normal Activity Paroxysmal Sweats: 1-Minimal Palms Moist Orientation: 0-Oriented Tacttile Disturbances: 1-Very Mild Itch/Numbness (in right hand) Auditory Disturbances: 0-None Visual Disturbances: 0-None Headache: 0-None Present CIWA-Ar Total Score: 4 - Admission Criteria OASAS Guidelines: Admission for Medically Managed Detox: Requires at least one of the followin. CIWA greater than 12 2. Seizures within the past 24 hours 3. Delirium tremens within the past 24 hours 4. Hallucinations within the past 24 hours 5. Acute intervention needed for co occurring medical disorder 6. Acute intervention needed for co occurring psychiatric disorder 7. Severe withdrawal that cannot be handled at a lower level of care (continued vomiting, continued diarrhea, abnormal vital signs) requiring intravenous medication and/or fluids 8. 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) Cardiovascular: Yes: CHF (diastolic ) Psych: Yes: Addictions, Bipolar - Smoking History Smoking history: Current every day smoker Have you smoked in the past 12 months: Yes Aproximately how many cigarettes per day: 20 - Alcohol/Substance Use Hx Alcohol Use: Yes History of Substance Use: reports: Cocaine Admission ROS [facility] Chief Complaint: Alcohol detox Allergies/Adverse Reactions: Allergies Allergy/AdvReac Type Severity Reaction Status Date / Time No Known Allergies Allergy Verified 03/25/20 16:58 History of Present Illness: Patient is a 49 year old man who initially presented for alcohol detox on 03/23, on admission, he was noted with elevated blood pressure and had complaints of left sided chest pain and severe headache. He was sent to the ED for further evaluation. In the ED, his cardiac enzymes were negative x 4. As per Kristi report, cardiology evaluated patient: EKG showed nonspecific ST and T wave abnormalities which has not significantly changed from past EKGs dating back to 2015. Also, head CT revealed expansion of an old infarct; patient was continued on Plavix and given a neurology referral. His blood pressures were elevated and he was started on Lisinopril and Amlodipine. He returns this afternoon to complete detox in no apparent distress. Exam Limitations: No Limitations - Ebola screening Have you traveled outside of the country in the last 21 days: No Have you had contact with anyone from an Ebola affected area: No Have you been sick,other than usual withdrawal symptoms: No Do you have a fever: No - Review of Systems Constitutional: No Symptoms Reported EENT: reports: No Symptoms Reported, Other (sees well through right eye with eye glasses) Respiratory: reports: No Symptoms reported GI: reports: No Symptoms Reported : reports: No Symptoms Reported Musculoskeletal: reports: Muscle Weakness Integumentary: reports: No Symptoms Reported Neuro: reports: No Symptoms reported Endocrine: reports: No Symptoms Reported Hematology: reports: No Symptoms Reported Psychiatric: reports: No Sypmtoms Reported Other Systems: Reviewed and Negative Patient History - Patient Medical History Hx Anemia: No Hx Asthma: No Hx Chronic Obstructive Pulmonary Disease (COPD): No Hx Cancer: No Hx Cardiac Disorders: No Hx Congestive Heart Failure: No Hx Hypertension: Yes Hx Hypercholesterolemia: Yes Hx Pacemaker: No HX Cerebrovascular Accident: Yes (08/2017) Hx Seizures: No Hx Dementia: No Hx Diabetes: No Hx Gastrointestinal Disorders: No Hx Liver Disease: No Hx Genitourinary Disorders: No Hx Sexually Transmitted Disorders: No Hx Renal Disease (ESRD): No Hx Thyroid Disease: No Hx Human Immunodeficiency Virus (HIV): No Hx Hepatitis C: No Hx Depression: No Hx Suicide Attempt: No Hx Bipolar Disorder: Yes Hx Schizophrenia: Yes - Patient Surgical History Past Surgical History: Yes Hx Neurologic Surgery: No Hx Cataract Extraction: No Hx Cardiac Surgery: No Hx Lung Surgery: No Hx Breast Surgery: No Hx Breast Biopsy: No Hx Abdominal Surgery: No Hx Appendectomy: No Hx Cholecystectomy: No Hx Genitourinary Surgery: No Hx Section: No Hx Orthopedic Surgery: No Hx Hysterectomy: No Other Surgical History: s/p enucleation of left eye at age 35 Anesthesia Reaction: No - PPD History Previous Implant?: Yes Documented Results: Negative w/proof Implanted On Prior R Admission?: Yes Date: 08/30/15 Results: 0 mm PPD to be Administered?: No - Smoking Cessation Smoking history: Current every day smoker Have you smoked in the past 12 months: Yes Aproximately how many cigarettes per day: 20 Cigars Per Day: 0 Hx Chewing Tobacco Use: No Initiated information on smoking cessation: Yes 'Breaking Loose' booklet given: 03/25/20 - Substances abused Alcohol Substance route: Oral Frequency: Daily Amount used: 6 pack, a bottle of liquor Age of first use: 18 Date of last use: 03/23/20 PCP Substance route: Smoking Frequency: Daily Amount used: $50 Age of first use: 21 Date of last use: 03/23/20 Marijuana/Hashish Substance route: Smoking Frequency: Daily Amount used: 3 blunts Age of first use: 18 Date of last use: 03/23/20 Admission Physical Exam [facility] - Physical General Appearance: Yes: No Apparent Distress HEENTM: Yes: Normocephalic, Normal Voice, Tm's normal, Other (left eye enucleation) Respiratory: Yes: Chest Non-Tender, Lungs Clear, No Respiratory Distress, No Accessory Muscle Use Neck: Yes: No masses,lesions,Nodules, Supple Breast: Yes: Breast Exam Deferred Cardiology: Yes: Regular Rhythm, Regular Rate, S1, S2 Abdominal: Yes: Normal Bowel Sounds, Soft Genitourinary: Yes: Within Normal Limits Back: Yes: Normal Inspection Musculoskeletal: Yes: Muscle weakness Extremities: Yes: Non-Tender, Tremors (mild) Neurological: Yes: Alert, Normal Mood/Affect, Normal Response, Numbness, Other (left sided weakness) Integumentary: Yes: Normal Color Lymphatic: Yes: Within Normal Limits - Diagnostic (1) Alcohol dependence with uncomplicated withdrawal Current Visit: Yes Status: Acute (2) CVA (cerebral vascular accident) Current Visit: No Status: Resolved Qualifiers: CVA mechanism: stenosis Precerebral and cerebral artery: middle cerebral artery Laterality of affected vessel: right Qualified Code(s): I63.511 - Cerebral infarction due to unspecified occlusion or stenosis of right middle cerebral artery (3) HTN (hypertension) Current Visit: Yes Status: Acute Qualifiers: Hypertension type: essential hypertension Qualified Code(s): I10 - Essential (primary) hypertension (4) Hyperlipidemia Current Visit: Yes Status: Chronic Qualifiers: Hyperlipidemia type: pure hypercholesterolemia Qualified Code(s): E78.00 - Pure hypercholesterolemia, unspecified; E78.0 - Pure hypercholesterolemia Cleared for Admission [facility] - Detox or Rehab [facility] Level of Care: Medically Managed Detox Regimen/Protocol: Librium Claeared for Rehab Admission: No Breathalyzer - Breathalyzer Breathalyzer: 0 Urine Drug Screen - Test Device Lot number: [id number] Expiration date: 05/01/21 - Control Is test valid?: Yes - Results Drug screen NEGATIVE: No (PCP) Urine drug screen results: THC-Marijuana Inpatient Rehab Admission - Rehab Decision to Admit Inpatient rehab admission?: No
[2020-03-25] MEDS ORDERED: MAGNESIUM HYDROX 2400MG/30ML ORAL SUSPENSION 30 ML CUP PO PRN (16:26)
[2020-03-25] MEDS ORDERED: BISMUTH SUBSALICYLATE 524 MG/30 ML UD PO PRN (16:26)
[2020-03-25] MEDS ORDERED: IBUPROFEN 400 MG TABLET (FP) PO PRN (16:26)
[2020-03-25] MEDS ORDERED: NICOTINE POLACRILEX 2 MG GUM BUC PRN (16:26)
[2020-03-25] MEDS ORDERED: MENTHOL/PHENOL 1 EACH UD MM PRN (16:26)
[2020-03-25] MEDS ORDERED: ACETAMINOPHEN 325 MG TABLET (FP) PO PRN ×2 (16:26)
[2020-03-25] MEDS ORDERED: MAG HYDROX/AL HYDROX/SIMETH 30 ML UNIT-DOSE CUP PO PRN (16:26)
[2020-03-25] MEDS ORDERED: METHOCARBAMOL 500 MG TABLET PO PRN (16:26)
[2020-03-25] MEDS ORDERED: MAGNESIUM CITRATE 300 ML BOTTLE PO PRN (16:26)
[2020-03-25] MEDS ORDERED: hydrOXYzine PAMOATE 25 MG CAPSULE (FP) PO PRN (16:26)
[2020-03-25 16:27] VITALS: BMI 26.8
[2020-03-25] MEDS ORDERED: chlordiazePOXIDE HCL 10 MG CAPSULE PO PRN ×2 (17:09→17:38)
[2020-03-25] MEDS: MELATONIN 5 MG TABLETS PO SCH (21:48)
[2020-03-25] MEDS: ATORVASTATIN CA 80 MG TABLET (FP) PO SCH (21:49)
[2020-03-25] MEDS: chlordiazePOXIDE HCL 10 MG CAPSULE PO SCH (21:49)
[2020-03-25] MEDS: THIAMINE HCL 100 MG TABLET (FP) PO SCH (21:49)
[2020-03-26] MEDS: chlordiazePOXIDE HCL 10 MG CAPSULE PO SCH ×2 (06:08→13:09)
--- NOTE | 2020-03-26 09:13 | PN ---
S CIWA - CIWA Score Nausea/Vomitin-No Nausea/No Vomiting Muscle Tremors: 1-None Visible, but [place] Anxiety: 1-Mildly Anxious Agitation: 0-Normal Activity Paroxysmal Sweats: No Perspiration Orientation: 0-Oriented Tacttile Disturbances: 0-None Auditory Disturbances: 0-None Visual Disturbances: 1-Very Mild Sensitivity Headache: 0-None Present CIWA-Ar Total Score: 3 [facility] Progress Note (SOAP) Subjective: 49 years old male admitted on 03/23/20 for alcohol withdrawal sx management treating with librium detox regiment bp elevation transferred to ER discharged to detox unit on 03/25/20 mr acuna is doing well in detox no chest pain no shortness of breath mild tremor and anxiety discussing substance induced cardiovascular insult Objective: 03/26/20 09:14 Vital Signs - 24 hr 03/25/20 03/25/20 03/25/20 16:22 17:03 17:58 Temperature 98.2 F 98.2 F 97.3 F L Pulse Rate 70 70 59 L Respiratory 18 18 18 Rate Blood Pressure 137/92 137/92 133/92 O2 Sat by Pulse Oximetry (%) 03/25/20 03/26/20 20:38 06:53 Temperature 97.7 F 97.6 F Pulse Rate 66 51 L Respiratory 18 18 Rate Blood Pressure 117/78 131/88 O2 Sat by Pulse 99 99 Oximetry (%) 03/26/20 09:16 covid not detected positive phencyclidine 03/26/20 09:16 Assessment: 03/26/20 09:16 alcohol withdrawal Plan: librium regiment
[2020-03-26] MEDS: CLOPIDOGREL BISULFATE 75 MG TABLET (FP) PO SCH (10:13)
[2020-03-26] MEDS: PRENATAL VITAMINS W/ FOLIC ACID TABLET (FP) PO SCH (10:13)
[2020-03-26] MEDS: LISINOPRIL 20 MG TABLET (FP) PO SCH (10:13)
[2020-03-26] MEDS: amLODIPine BESYLATE 10 MG TABLET (FP) PO SCH (10:14)
[2020-03-26] MEDS: NICOTINE 14 MG/24 HOURS TOPICAL PATCH TD SCH (10:15)
[2020-03-26] MEDS: THIAMINE HCL 100 MG TABLET (FP) PO SCH (22:07)
[2020-03-26] MEDS: ATORVASTATIN CA 80 MG TABLET (FP) PO SCH (22:07)
[2020-03-26] MEDS: MELATONIN 5 MG TABLETS PO SCH (22:09)
[2020-03-26] MEDS ORDERED: chlordiazePOXIDE HCL 10 MG CAPSULE PO PRN (23:00)
[2020-03-27] MEDS ORDERED: chlordiazePOXIDE HCL 10 MG CAPSULE PO ONE (05:00)
--- NOTE | 2020-03-27 09:05 | DS ---
[facility] Detox Discharge Summary Admission Date: 03/25/20 Discharge Date: 03/27/20 - History Present History: Alcohol Dependence Additional Comments: mr berg is a 49 years old male admitted on 03/23/20 for alcohol withdrawal sx sent to ER for chest pain medically appropriated to return to detox facility on 03/25/20 mr berg has completed librium regiment and is tolerated well mr berg is doing well in detox no chest pain tolerates librium well alert oriented x 3 speech clearly coherently ambulating steady gaits denies dizziness cardiac arrhythmia Vital Signs - 24 hr 03/26/20 03/26/20 03/26/20 09:09 12:15 13:13 Temperature 96.8 F L 96.8 F L 96.8 F L Pulse Rate 63 63 74 Respiratory 16 16 16 Rate Blood Pressure 126/89 126/89 143/93 O2 Sat by Pulse 99 99 99 Oximetry (%) 03/26/20 03/26/20 03/27/20 16:35 20:39 05:36 Temperature 97.5 F L 97.3 F L 97.1 F L Pulse Rate 61 58 L 45 L Respiratory 18 16 18 Rate Blood Pressure 143/88 141/91 137/89 O2 Sat by Pulse 97 97 Oximetry (%) 03/27/20 08:40 Temperature 97.6 F Pulse Rate 61 Respiratory 18 Rate Blood Pressure 138/84 O2 Sat by Pulse Oximetry (%) ekg indicated diastolic chf exacerbated due to phencyclidine and alcohol abuse mr berg agrees to follow up with cardiac stress testing in the count includes the [facility] service 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 clear lung sounds bilaterally on auscultation extremities full range of motion Pertinent Past History: time for discharge 35 minutes - Physical Exam Results Vital Signs: Vital Signs Temperature 97.6 F 03/27/20 08:40 Pulse Rate 61 03/27/20 08:40 Respiratory Rate 18 03/27/20 08:40 Blood Pressure 138/84 03/27/20 08:40 O2 Sat by Pulse Oximetry (%) 99 03/27/20 05:36 Pertinent Admission Physical Exam Findings: alcohol withdrawal Laboratory Tests 03/26/20 06:45 HIV Ag/Ab Combo Qual Negative - Treatment Hospital Course: Detox Protocol Followed, Detoxed Safely, Responded well, Discharged Condition Good, Rehab Referral Accepted Patient has Accepted a Rehab Referral to: [facility] - Medication Discharge Medications: Ambulatory Orders Lisinopril [Prinivil] 20 mg PO DAILY #30 tablet 10/13/19 Amlodipine Besylate [Norvasc -] 10 mg PO DAILY tablet 03/25/20 Atorvastatin Ca [Lipitor] 80 mg PO HS tablet 03/25/20 Clopidogrel Bisulfate [Plavix] 75 mg PO DAILY #30 tablet 03/25/20 Folic Acid - 1 mg PO DAILY tablet 03/25/20 Nicotine Patch [Nicoderm Patch -] 14 mg TD DAILY patch 03/25/20 Thiamine HCl [Vitamin B1 -] 100 mg PO DAILY 03/25/20 - Diagnosis (1) Hx of heart artery stent Current Visit: Yes Status: Chronic (2) Alcohol dependence with uncomplicated withdrawal Current Visit: Yes Status: Acute (3) HTN (hypertension) Current Visit: Yes Status: Chronic Qualifiers: Hypertension type: essential hypertension Qualified Code(s): I10 - Essential (primary) hypertension (4) Hyperlipidemia Current Visit: Yes Status: Chronic Qualifiers: Hyperlipidemia type: unspecified Qualified Code(s): E78.5 - Hyperlipidemia, unspecified (5) Diastolic CHF Current Visit: Yes Status: Chronic Qualifiers: Heart failure chronicity: chronic Qualified Code(s): I50.32 - Chronic diastolic (congestive) heart failure (6) Smokes cigarettes Current Visit: Yes Status: Acute (7) Essential hypertension Current Visit: Yes Status: Chronic (8) Nicotine abuse Current Visit: Yes Status: Acute (9) Nicotine dependence Current Visit: Yes Status: Acute Qualifiers: Nicotine product type: cigarettes Substance use status: in withdrawal Qualified Code(s): F17.213 - Nicotine dependence, cigarettes, with withdrawal - AMA Did Patient Leave Against Medical Advice: No CIWA Score - CIWA Score Nausea/Vomitin-No Nausea/No Vomiting Muscle Tremors: None Anxiety: 1-Mildly Anxious Agitation: 0-Normal Activity Paroxysmal Sweats: No Perspiration Orientation: 0-Oriented Tacttile Disturbances: 0-None Auditory Disturbances: 0-None Visual Disturbances: 0-None Headache: 0-None Present CIWA-Ar Total Score: 1
[2020-03-27] MEDS: amLODIPine BESYLATE 10 MG TABLET (FP) PO SCH (10:16)
[2020-03-27] MEDS: NICOTINE 14 MG/24 HOURS TOPICAL PATCH TD SCH (10:16)
[2020-03-27] MEDS: CLOPIDOGREL BISULFATE 75 MG TABLET (FP) PO SCH (10:16)
[2020-03-27] MEDS: LISINOPRIL 20 MG TABLET (FP) PO SCH (10:16)
[2020-03-27] MEDS: PRENATAL VITAMINS W/ FOLIC ACID TABLET (FP) PO SCH (10:16)
[2020-03-27 13:17] VITALS: BP 125/83; PULSE 65; TEMP 97.5
== END 2020-03-27 12:41 | disposition home or self-care (01) | DRG 775 ==
LOC: YASAS 15:30 → Y3N 17:27
PROVIDERS: ADMIT Allergy & Immunology; ATTEND Allergy & Immunology
PROC: HZ2ZZZZ Detoxification Services for Substance Abuse Treatment (ICD-10-PCS; principal; 2020-03-25)
DX: F10.230 Alcohol dependence with withdrawal, uncomplicated (principal); F16.20 Hallucinogen dependence, uncomplicated; F12.20 Cannabis dependence, uncomplicated; F17.210 Nicotine dependence, cigarettes, uncomplicated; R07.9 Chest pain, unspecified; I25.10 Atherosclerotic heart disease of native coronary artery without angina pectoris; I11.0 Hypertensive heart disease with heart failure; I50.32 Chronic diastolic (congestive) heart failure; Z95.5 Presence of coronary angioplasty implant and graft; E78.00 Pure hypercholesterolemia, unspecified; E78.5 Hyperlipidemia, unspecified; Z86.73 Personal history of transient ischemic attack (TIA), and cerebral infarction without residual deficits; S05.72XD Avulsion of left eye, subsequent encounter; X58.XXXD Exposure to other specified factors, subsequent encounter
CPT/HCPCS: 36415; 87389

== ENCOUNTER 2020-04-14 11:41 | Inpatient (IN) | payer OTHER ==
[2020-04-14 11:58] VITALS: BMI 21.9
--- NOTE | 2020-04-14 12:14 | PDOC ---
History of Present Illness - General Chief Complaint: Syncope/Near Syncope Stated Complaint: FALL Time Seen by Provider: 04/14/20 12:12 Past History - Medical History Allergies/Adverse Reactions: Allergies Allergy/AdvReac Type Severity Reaction Status Date / Time No Known Allergies Allergy Verified 04/14/20 11:52 Home Medications: Ambulatory Orders Lisinopril [Prinivil] 20 mg PO DAILY #30 tablet 10/13/19 Amlodipine Besylate [Norvasc -] 10 mg PO DAILY tablet 03/25/20 Atorvastatin Ca [Lipitor] 80 mg PO HS tablet 03/25/20 Clopidogrel Bisulfate [Plavix] 75 mg PO DAILY #30 tablet 03/25/20 Folic Acid - 1 mg PO DAILY tablet 03/25/20 Nicotine Patch [Nicoderm Patch -] 14 mg TD DAILY patch 03/25/20 Thiamine HCl [Vitamin B1 -] 100 mg PO DAILY 03/25/20 Anemia: No Asthma: No Cancer: No Cardiac Disorders: No CVA: Yes (08/2017) COPD: No CHF: No Dementia: No Diabetes: No GI Disorders: No Disorders: No HTN: Yes Hypercholesterolemia: Yes Kidney Stones: No Liver Disease: No Seizures: No Thyroid Disease: No - Surgical History Abdominal Surgery: No Appendectomy: No Cardiac Surgery: No Cholecystectomy: No Lung Surgery: No Neurologic Surgery: No Orthopedic Surgery: No - Reproductive History Testicular Surgery: No - Psycho-Social/Smoking History Smoking History: Never smoked Have you smoked in the past 12 months: Yes Number of Cigarettes Smoked Daily: 20 Cigars Per Day: 0 'Breaking Loose' booklet given: 03/25/20 - Substance Abuse Hx (Audit-C & DAST Scrn) How often the patient has a drink containing alcohol: Never Score: In Men: 4 or > Positive; In Women: 3 or > Positive: 0 Screen Result (Pos requires Nsg. Audit-10AR): Negative In the last yr the pt used illegal drug/Rx for NonMed reason: No Score: Yes response is considered Positive: 0 Screen Result (Positive result requires Nsg. DAST-10): Negative *Physical Exam - Vital Signs Last Vital Signs Temp Pulse Resp BP Pulse Ox 98.7 F 82 16 180/100 H 99 04/14/20 11:53 04/14/20 11:53 04/14/20 11:53 04/14/20 11:53 04/14/20 11:53 ED Treatment Course - LABORATORY CBC & Chemistry Diagram: 04/14/20 12:15 04/14/20 12:15 - ADDITIONAL ORDERS Additional order review: Laboratory Results 04/14/20 12:02 POC Glucometer 81 04/14/20 12:02 POC Glucometer 81 Medical Decision Making - Medical Decision Making 04/14/20 12:14 HPI: 49yo M hx CVA (residual LUE weakness), traumatic enucleation L eye, HTN, HLD, schizophrenia bipolar, noncompliance with meds, polysubstance abuse (PCP, alcohol, MJ, nicotine; only PCP today), not on blood thinners, BIBA for syncope with head injury. Pt states he didn't eat much today, was walking on sidewalk, and got lightheaded and passed out at approx 10am. Unable to get up on own so bystander called EMS. Now endorses R forehead pain (at location of lac), generalized weakness, fatigue. Denies sick contacts, COVID, travel, CP, SOB, neck pain, back pain, hip pain, numbness/tingling, new focal weakness, abdominal pain, N/V, D/C, dysuria, vision changes, headache. Did not take home HTN med today yet, small peach pill 1x/day. Last tetanus within 1 year. ROS: Constitutional: Positive for fatigue, generalized weakness. Negative for chills, fever, diaphoresis. HENT: Positive for R forehead lac and pain. Negative for sore throat, rhinorrhea, congestion. Eyes: Negative for visual disturbance. Respiratory: Negative for shortness of breath, cough, and wheezing. Cardiovascular: Negative for chest pain, palpitations, and leg swelling. Gastrointestinal: Negative for abdominal pain, blood in stool, constipation, diarrhea, nausea, and vomiting. Genitourinary: Negative for dysuria, flank pain, and hematuria. Musculoskeletal: Negative for myalgias, back pain, and neck pain. Skin: Negative for rash. Neurological: Positive for syncope, light-headedness. Negative for vertigo, new focal weakness, numbness and headaches. Psychiatric/Behavioral: Positive for polysubstance abuse. Negative for confusion. PE: Gen: Alert, NAD, comfortable-appearing. HEENT: L eye enucleated, R pupil round reactive to light with EOMI, dry MM, NCAT. No conjunctival pallor. Sclera are non-icteric. CV: Regular rate and rhythm. No murmurs, rubs, or gallops. PULM: No resp distress. CTAB, no wheezes, rales, or rhonchi. ABD: soft, NT/ND, no rebound tenderness or guarding, no CVA tenderness. BACK: Hips and pelvis stable, intact, no TTP. No TTP of c/t/l-spine. No step- offs or deformities. MSK: No bony deformities. 2+ pulses in all extremities. NEURO: AAOx3. PERRL. CNII-12 intact. 4/5 strength in LUE (2/2 prior CVA per pt), 5/5 strength in other extremities. SILT throughout. No abnormal nystagmus. EXTREMITIES: No cyanosis. No clubbing. No edema. No calf tenderness. No TTP along long bones. PSYCH: Normal mood and thought pattern. SKIN: Warm and dry. Normal capillary refill. No rashes. No jaundice. MDM: 49yo M hx CVA (residual LUE weakness), traumatic enucleation L eye, HTN, HLD, schizophrenia bipolar, noncompliance with meds, polysubstance abuse (PCP, alcohol, MJ, nicotine; only PCP today) BIBA for syncope with head injury. Hypertensive, otherwise hemodynamically stable, afebrile. Ddx: hypoglycemia, vasovagal, orthostatic, ACS/OK, arrhythmia, PNA, UTI, metabolic derangement, anemia, infection -IVF -BGM: 81 --food -EKG: NSR, 78bpm, HI interval 166ms, QTc 469ms, minimal voltage criteria for LVH based on VL, no e/o acute ischemia, when compared to prior NSR has replaced sinus bradycardia -CXR -Syncope labs -CTH/c-spine -Orthostatic VS -Home med HTN: confirmed peach pill is 20mg Lisinipril. Also give 10 norvasc based on March 2020 chart -Likely admit tele obs syncope 04/14/20 14:08 BP 160/73, improved Labs reviewed. No concerning findings CXR reviewed: no acute pathology CT head/c-spine reviewed: no acute intracranial pathology. No fx or subluxation. Uncovertebral hypertrophy moderately narowing R foramen C3-C4 level, correlate clinically. No c-spine TTP, neck pain, numbness or tingling, or R-sided weakness. 04/14/20 14:14 Discussed lac repair with pt. Discussed how sutures would be the most effective and the most cosmetically optimal. Pt understands but refuses sutures. Pt would rather have scar than sutures. Will dermabond. Discharge - Discharge Information Problems reviewed: Yes Clinical Impression/Diagnosis: PCP dependence, Traumatic enucleation of left eye, Syncope and collapse, Head injury Condition: Stable - Admission Yes - Follow up/Referral - Patient Discharge Instructions - Post Discharge Activity
[2020-04-14] MEDS ORDERED: SODIUM CHLORIDE 0.9% 500 ML INFUS.BAG IV ONE (12:26)
[2020-04-14] MEDS ORDERED: LISINOPRIL 20 MG TABLET (FP) PO ONE (12:29)
[2020-04-14] MEDS ORDERED: amLODIPine BESYLATE 10 MG TABLET (FP) PO ONE (12:38)
--- NOTE | 2020-04-14 12:41 | PDOC ---
Documentation entered by Umu Rome SCRIBE, acting as scribe for Rachael Humphrey MD. Rachael Humphrey MD: This documentation has been prepared by the jasonibeWild Ana, SCRIBE, under my direction and personally reviewed by me in its entirety. I confirm that the documentation accurately reflects all work, treatment, procedures, and medical decision making performed by me. Attending Attestation - Resident Resident Name: Kalee Jefferson - ED Attending Attestation I have performed the following: I have examined & evaluated the patient, The case was reviewed & discussed with the resident, I agree w/resident's findings & plan, Exceptions are as noted - HPI HPI: 04/14/20 12:12 Patient is a 49 year old male with a significant past medical history of polysubstance abuse, schizophrenia, bipolar, CVA, hypertension, HLD, and traumatic enucleation L eye, who presents to the ED Following a syncopal episode. Patient reports using PCP this a.m. states he was walking and suddenly passed out did hit his head denies any precipitating chest pain or palpitations denies any other concurrent drug use today was recently admitted to [facility] as well as detox for alcohol withdrawal and just discharged 2 weeks ago. States he is noncompliant with his blood pressure medications and has been only taking 1 of the 2 prescribed medications but did not take it today Patient denies: Allergies: NKDA 04/14/20 12:37 - Physicial Exam PE: 04/14/20 12:38 Awake alert no acute distress's are clear bilaterally heart is regular with any murmurs rubs or gallops abdomen soft nontender skin is warm and dry extremities are warm and perfused patient is awake alert and oriented x3 - Medical Decision Making 04/14/20 12:39 49-year-old male history of polysubstance abuse recent use of PCP here with a syncopal episode differential includes dysrhythmia OK possible toxic side effect of substance use dehydration Patient's glucose is 80 will give him some p.o. to correct that. CBC CMP troponin were sent with an EKG we will add a tox screen patient did not take his blood pressure medications we will add those now as he is a hypertensive pending his work-up patient may require admission if he is willing for dysrhythmia due to his risk factors ct head r/o ich. Heart Score/ECG Review #1 ECG reviewed & interpreted by me at: 12:40 General ECG Interpretation: Sinus Rhythm, Normal Rate, Normal Intervals, No acute ischemic changes Compared to previous ECG there are: Other (left axis , lvh, no st elevation or depression.) Discharge - Discharge Information Problems reviewed: Yes Clinical Impression/Diagnosis: PCP dependence, Traumatic enucleation of left eye, Syncope and collapse, Head injury Condition: Stable - Follow up/Referral - Patient Discharge Instructions - Post Discharge Activity
[2020-04-14 12:57] LABS: BASO % 0.3 % (0-2.0); EOS % 0.8 % (0-4.5); HEMATOCRIT 39.4 % (35.4-49); HEMOGLOBIN 12.8 GM/dL (11.7-16.9); MCH 26.7 pg (25.7-33.7); MCHC 32.5 g/dl (32.0-35.9); MEAN CELL VOLUME 82.1 fl (80-96); MEAN PLT VOLUME 8.2 fl (7.5-11.1); MONO % 6.4 % (3.8-10.2); NEUT % 80.5 % (42.8-82.8); PLATELET COUNT 204 K/MM3 (134-434); RBC 4.79 M/mm3 (4.00-5.60); WHITE BLOOD COUNT 9.8 K/mm3 (4.0-10.0)
[2020-04-14 12:59] LABS: URINE APPEARANCE CLEAR; URINE BILIRUBIN NEGATIVE (NEGATIVE); URINE COLOR YELLOW; URINE GLUCOSE (UA) NEGATIVE (NEGATIVE); URINE KETONE NEGATIVE (NEGATIVE); URINE LEUK ESTERASE NEGATIVE (NEGATIVE); URINE NITRITE NEGATIVE (NEGATIVE); URINE PROTEIN NEGATIVE (NEGATIVE)
[2020-04-14] MEDS ORDERED: amLODIPine BESYLATE 5 MG TABLET (FP) ONE (13:01)
[2020-04-14] MEDS ORDERED: LISINOPRIL 20 MG TABLET (FP) ONE (13:01)
[2020-04-14 13:13] LABS: ACTIVATED PTT 30.6 SECONDS (25.2-36.5)
[2020-04-14 13:27] LABS: ALK PHOS 55 U/L (45-117); ANION GAP 6 MMOL/L (8-16); BILIRUBIN,TOTAL 0.7 mg/dL (0.2-1); CALCIUM 8.8 mg/dL (8.5-10.1); CHLORIDE 105 mmol/L (98-107); CO2 29 mmol/L (21-32); CREATININE 0.9 mg/dL (0.55-1.3); GLUCOSE,RANDOM 83 mg/dL (74-106); MAGNESIUM 2.1 mg/dL (1.8-2.4); PHOSPHOROUS 3.4 mg/dL (2.5-4.9); POTASSIUM 4.1 mmol/L (3.5-5.1); SGOT/AST 25 U/L (15-37); SGPT/ALT 17 U/L (13-61); SODIUM 140 mmol/L (136-145); TOT PROT 7.2 g/dl (6.4-8.2)
[2020-04-14] MEDS ORDERED: BACITRACIN 0.9 GM PACKET TP ONE (14:29)
[2020-04-14] MEDS ORDERED: BACITRACIN 0.9 GM PACKET ONE (14:34)
--- NOTE | 2020-04-14 16:08 | HP ---
CHIEF COMPLAINT: syncope HISTORY OF PRESENT ILLNESS: Pt is a 49 y/o with polysubstance use disorder and HTN who presents following syncope. He was outside walking to his sister's to get his BP meds after using PCP, got lightheaded, and passed out. He hit the right side of his forehead just above the eyebrow. He reports some shortness of breath, but attributes it to the heat. ER course was notable for: (1) lisinopril and amlodipine (2) IV fluids PAST MEDICAL HISTORY: polysubstance use HTN PAST SURGICAL HISTORY: Social History: Smokinppd Alcohol: intermittent Drugs: PCP couple times a month Allergies No Known Allergies Allergy (Verified 04/14/20 11:52) HOME MEDICATIONS: Home Medications Medication Instructions Recorded Lisinopril [Prinivil] 20 mg PO DAILY #30 tablet 10/13/19 Amlodipine Besylate [Norvasc -] 10 mg PO DAILY tablet 03/25/20 Atorvastatin Ca [Lipitor] 80 mg PO HS tablet 03/25/20 Clopidogrel Bisulfate [Plavix] 75 mg PO DAILY #30 tablet 03/25/20 Folic Acid - 1 mg PO DAILY tablet 03/25/20 Nicotine Patch [Nicoderm Patch -] 14 mg TD DAILY patch 03/25/20 Thiamine HCl [Vitamin B1 -] 100 mg PO DAILY 03/25/20 REVIEW OF SYSTEMS see HPI PHYSICAL EXAMINATION Vital Signs - 24 hr 04/14/20 04/14/20 04/14/20 11:53 13:47 15:18 Temperature 98.7 F Pulse Rate 82 Pulse Rate [ 89 Right Radial] Respiratory 16 18 18 Rate Blood Pressure 180/100 H Blood Pressure 172/87 H [Left Arm] O2 Sat by Pulse 99 99 99 Oximetry (%) GENERAL: Awake, alert, and fully oriented, in no acute distress. HEAD: Normocephalic, 2cm laceration above lateral aspect of right eyebrow, raised. EYES: Right PERRL, extraocular movements intact, left eye enucleated. EARS, NOSE, THROAT: moist mucous membranes. NECK: Normal range of motion. LUNGS: Clear to auscultation bilaterally. HEART: RRR, no murmur ABDOMEN: Soft, nontender, not distended, normoactive bowel sounds. MUSCULOSKELETAL: Normal range of motion at all joints. UPPER EXTREMITIES: Warm, well-perfused. No peripheral edema. LOWER EXTREMITIES: Warm, well-perfused. No peripheral edema. NEUROLOGICAL: Cranial nerves II-XII grossly intact. Normal speech. PSYCHIATRIC: Cooperative. Good eye contact. Appropriate mood and affect. SKIN: Warm, dry, normal turgor. Laboratory Results - last 24 hr 04/14/20 04/14/20 04/14/20 12:02 12:15 12:15 WBC 9.8 RBC 4.79 Hgb 12.8 Hct 39.4 MCV 82.1 MCH 26.7 MCHC 32.5 RDW 14.0 Plt Count 204 MPV 8.2 Absolute Neuts (auto) 7.9 Neutrophils % 80.5 D Lymphocytes % 12.0 D Monocytes % 6.4 Eosinophils % 0.8 Basophils % 0.3 Nucleated RBC % 0 PTT (Actin FS) 30.6 Sodium Potassium Chloride Carbon Dioxide Anion Gap BUN Creatinine Est GFR (CKD-EPI)AfAm Est GFR (CKD-EPI)NonAf POC Glucometer 81 Random Glucose Calcium Phosphorus Magnesium Total Bilirubin AST ALT Alkaline Phosphatase Creatine Kinase Creatine Kinase Index CK-MB (CK-2) Troponin I Total Protein Albumin Urine Color Urine Appearance Urine pH Ur Specific Addison Urine Protein Urine Glucose (UA) Urine Ketones Urine Blood Urine Nitrite Urine Bilirubin Urine Urobilinogen Ur Leukocyte Esterase 04/14/20 04/14/20 12:15 12:15 WBC RBC Hgb Hct MCV MCH MCHC RDW Plt Count MPV Absolute Neuts (auto) Neutrophils % Lymphocytes % Monocytes % Eosinophils % Basophils % Nucleated RBC % PTT (Actin FS) Sodium 140 Potassium 4.1 Chloride 105 Carbon Dioxide 29 Anion Gap 6 L BUN 14.0 Creatinine 0.9 Est GFR (CKD-EPI)AfAm 116.65 Est GFR (CKD-EPI)NonAf 100.64 POC Glucometer Random Glucose 83 Calcium 8.8 Phosphorus 3.4 Magnesium 2.1 Total Bilirubin 0.7 AST 25 ALT 17 Alkaline Phosphatase 55 Creatine Kinase 264 Creatine Kinase Index 1.2 CK-MB (CK-2) 3.2 Troponin I < 0.02 Total Protein 7.2 Albumin 4.0 Urine Color Yellow Urine Appearance Clear Urine pH 5.0 Ur Specific Addison 1.015 Urine Protein Negative Urine Glucose (UA) Negative Urine Ketones Negative Urine Blood Negative Urine Nitrite Negative Urine Bilirubin Negative Urine Urobilinogen 1.0 Ur Leukocyte Esterase Negative ASSESSMENT/PLAN: Pt is a 49 y/o with polysubstance use disorder and HTN who presents following syncope. He is being observed given HTN after PCP use as well as syncope. #syncope 2/2 drug use vs dehydration #polysubstance use disorder #HTN -trop negative x1, repeat lab -EKG shows no significant changes from prior -prior echo normal EF -HTN likely from PCP use and not having taken home meds before syncope -1L IV fluids given in ED -monitor pressure -Ativan 2mg Q4H PRN agitation and high blood pressure from drug use -consider increasing lisinopril if pressure does not improve -consider cardiology f/u outpatient DVT Ppx SCDs FEN PO fluids monitor labs sodium-controlled diet dispo tele obs anticipate d/c tomorrow Visit type - Emergency Visit Emergency Visit: Yes ED Registration Date: 04/14/20 Care time: The patient presented to the Emergency Department on the above date and was hospitalized for further evaluation of their emergent condition. - New Patient This patient is new to me today: Yes Date on this admission: 04/14/20 - Critical Care Critical Care patient: No ATTENDING PHYSICIAN STATEMENT I saw and evaluated the patient. I reviewed the resident's note and discussed the case with the resident. I agree with the resident's findings and plan as documented. SUBJECTIVE: OBJECTIVE: ASSESSMENT AND PLAN:
[2020-04-14] MEDS ORDERED: LORazepam 2 MG/ML SDV VIAL IVPUSH PRN (16:11)
--- NOTE | 2020-04-14 16:12 | PN ---
Teaching Attending Note Name of Resident: Cary Herron ATTENDING PHYSICIAN STATEMENT I saw and evaluated the patient. I reviewed the resident's note and discussed the case with the resident. I agree with the resident's findings and plan as documented. SUBJECTIVE: Passed out OBJECTIVE: Vital Signs Temperature 98.7 F 04/14/20 11:53 Pulse Rate 89 04/14/20 13:47 Respiratory Rate 18 04/14/20 15:18 Blood Pressure 172/87 H 04/14/20 13:47 O2 Sat by Pulse Oximetry (%) 99 04/14/20 15:18 General: Young man, comfortable, not in distress HEENT: 1 inch laceration on right eyebrow, no active bleeding mucous membranes moist, no anemia, no jaundice, PERRLA, no nystagmus Neck: No JVD, supple, no bruit, thyroid palpably normal, normal carotid pulsations. Chest: Nontender, clear to auscultation bilaterally CVS: S1-S2 regular/irregular no murmur/gallop/rub Abdomen: Nondistended, soft, bowel sounds present. Extremities: No edema., No Calf tenderness, pulses present BOARD TURNER: AO X3 , left-sided weakness at baseline CBC,CMP WBC 9.8 K/mm3 (4.0-10.0) 04/14/20 12:15 RBC 4.79 M/mm3 (4.00-5.60) 04/14/20 12:15 Hgb 12.8 GM/dL (11.7-16.9) 04/14/20 12:15 Hct 39.4 % (35.4-49) 04/14/20 12:15 MCV 82.1 fl (80-96) 04/14/20 12:15 MCH 26.7 pg (25.7-33.7) 04/14/20 12:15 MCHC 32.5 g/dl (32.0-35.9) 04/14/20 12:15 RDW 14.0 % (11.9-15.9) 04/14/20 12:15 Plt Count 204 K/MM3 (134-434) 04/14/20 12:15 MPV 8.2 fl (7.5-11.1) 04/14/20 12:15 Absolute Neuts (auto) 7.9 K/mm3 (1.5-8.0) 04/14/20 12:15 Neutrophils % 80.5 % (42.8-82.8) D 04/14/20 12:15 Lymphocytes % 12.0 % (8-40) D 04/14/20 12:15 Monocytes % 6.4 % (3.8-10.2) 04/14/20 12:15 Eosinophils % 0.8 % (0-4.5) 04/14/20 12:15 Basophils % 0.3 % (0-2.0) 04/14/20 12:15 Nucleated RBC % 0 % (0-0) 04/14/20 12:15 Sodium 140 mmol/L (136-145) 04/14/20 12:15 Potassium 4.1 mmol/L (3.5-5.1) 04/14/20 12:15 Chloride 105 mmol/L (98-107) 04/14/20 12:15 Carbon Dioxide 29 mmol/L (21-32) 04/14/20 12:15 Anion Gap 6 MMOL/L (8-16) L 04/14/20 12:15 BUN 14.0 mg/dL (7-18) 04/14/20 12:15 Creatinine 0.9 mg/dL (0.55-1.3) 04/14/20 12:15 Est GFR (CKD-EPI)AfAm 116.65 04/14/20 12:15 Est GFR (CKD-EPI)NonAf 100.64 04/14/20 12:15 POC Glucometer 81 UNITS (80-120) 04/14/20 12:02 Random Glucose 83 mg/dL (74-106) 04/14/20 12:15 Calcium 8.8 mg/dL (8.5-10.1) 04/14/20 12:15 Phosphorus 3.4 mg/dL (2.5-4.9) 04/14/20 12:15 Magnesium 2.1 mg/dL (1.8-2.4) 04/14/20 12:15 Total Bilirubin 0.7 mg/dL (0.2-1) 04/14/20 12:15 AST 25 U/L (15-37) 04/14/20 12:15 ALT 17 U/L (13-61) 04/14/20 12:15 Alkaline Phosphatase 55 U/L (45-117) 04/14/20 12:15 Creatine Kinase 264 U/L (26-308) 04/14/20 12:15 Creatine Kinase Index 1.2 % (0.0-5.0) 04/14/20 12:15 CK-MB (CK-2) 3.2 ng/mL (0.5-3.6) 04/14/20 12:15 Troponin I < 0.02 ng/ml (0.00-0.05) 04/14/20 12:15 Total Protein 7.2 g/dl (6.4-8.2) 04/14/20 12:15 Albumin 4.0 g/dl (3.4-5.0) 04/14/20 12:15 EKG: Chest x-ray: No fracture no acute infiltrate CT head: Right frontal lobe encephalomalacia, left eye prosthesis CT neck: Normal alignment, no fracture no subluxation, right C3-4 foraminal narrowing ASSESSMENT AND PLAN: 49 years old man's snf resident, noncompliant history of polysubstance abuse active alcohol and PCP, recently discharged home [facility] in March 2020 after treated for atypical chest pain, hypertension, bipolar disorders, hyperlipidemia, recurrent CVA previous CVA in August 2017, second CVA with left upper extremity weakness, CTA shows right MCA thrombus patient was transferred to [facility] for possible thrombectomy subsequent course is unknown, today presented after an episode of loss of consciousness and fall as per patient he did PCP and walking to her sister's home to get blood pressure medication fainted landed on the floor, hit his head, bystanders called 911 patient was brought to ED for evaluation, patient says he fainted only for few seconds, remember all event pre-and after the event, denies any associated chest pain, palpitation, worsening weakness, shortness of breath or seizure activity no bowel bladder incontinence on arrival to ED patient was hypertensive as he missed his medication. Plan: 1.Syncope in the setting of PCP intoxication; admit to telemetry, serial cardiac enzymes, recent echo normal ejection fraction, consider repeating , consider cardiology consult and echo if arrhythmia rising troponin I. 2.Uncontrolled hypertension: Due to noncompliance and PCP, resume home medications and observe. 3.Head trauma with right eyebrow laceration: CT head no intracranial injury, neurochecks, Tylenol for the pain and local wound care 4.Polysubstance abuse: Observe for DTs, lorazepam as needed for agitation patient denies recent alcohol use, will offer alcohol rehab, follow-up detox 5. History of CVA with left-sided residual weakness: No worsening symptoms, optimize blood pressure control resume all home medications 6.Bipolar disorder: Continue mostly stable, no agitation resume home medications SCDs for DVT prophylaxis as well Case discussed with the resident agrees with plan of care and evaluation
--- NOTE | 2020-04-14 16:37 | HP ---
CHIEF COMPLAINT: fainted and hit his head PCP: none HISTORY OF PRESENT ILLNESS: 49 yo Male with PMHx of CVA (12/2019 w/residual LUE weakness), traumatic enucleation L eye, HTN, HLD, schizophrenia, polysubstance abuse (PCP, alcohol, MJ, nicotine), not on AC. BIBA after syncopal event where he hit his head. Myrtle anaya said he used PCP this morning and started to feel light headed and passed out. In the ED his blood pressure was also elevated. He said he's run out of medications. He was recently admitted for alcohol withdrawal to [facility] 03/24 and transferred to [facility] on 03/25. He then went to [facility] on 03/27 and said he's been out of rehab for a week. He also claims to not have used alcohol or any drugs until he used PCP today. He said he's been stressed. He doesn't like his long-term. ER course was notable for: (1) CT head, no acute pathology (2) BP 172/87 - lisinopril and amlodipine given (3) EKG: Sinus Rhythm/No acute ischemic changes Recent Travel: denies PAST MEDICAL HISTORY: CVA w/ lef UE weakness L eye retinal detachment HTN HLD Schizophrenia polysubstance abuse PAST SURGICAL HISTORY: retinal detachment, L eye enucleation Social History: Smoking: cigarets 1 pack a day cutting down Alcohol: no alcohol since 03/24 Drugs: only PCP today, none since 03/24 Family Hx: denies Allergies No Known Allergies Allergy (Verified 04/14/20 11:52) HOME MEDICATIONS: Home Medications Medication Instructions Recorded Lisinopril [Prinivil] 20 mg PO DAILY #30 tablet 10/13/19 Amlodipine Besylate [Norvasc -] 10 mg PO DAILY tablet 03/25/20 Atorvastatin Ca [Lipitor] 80 mg PO HS tablet 03/25/20 Clopidogrel Bisulfate [Plavix] 75 mg PO DAILY #30 tablet 03/25/20 Folic Acid - 1 mg PO DAILY tablet 03/25/20 Nicotine Patch [Nicoderm Patch -] 14 mg TD DAILY patch 03/25/20 Thiamine HCl [Vitamin B1 -] 100 mg PO DAILY 03/25/20 REVIEW OF SYSTEMS CONSTITUTIONAL: Absent: fever, chills, diaphoresis, generalized weakness, malaise, loss of appetite, weight change HEENT: Absent: rhinorrhea, nasal congestion, throat pain, throat swelling, difficulty swallowing, mouth swelling, ear pain, eye pain, visual changes CARDIOVASCULAR: Absent: chest pain, syncope, palpitations, irregular heart rate, lightheadedness, peripheral edema RESPIRATORY: Absent: cough, shortness of breath, dyspnea with exertion, orthopnea, wheezing, stridor, hemoptysis GASTROINTESTINAL: Absent: abdominal pain, abdominal distension, nausea, vomiting, diarrhea, constipation, melena, hematochezia GENITOURINARY: Absent: dysuria, frequency, urgency, hesitancy, hematuria, flank pain, genital pain MUSCULOSKELETAL: Absent: myalgia, arthralgia, joint swelling, back pain, neck pain SKIN: Absent: rash, itching, pallor HEMATOLOGIC/IMMUNOLOGIC: Absent: easy bleeding, easy bruising, lymphadenopathy, frequent infections ENDOCRINE: Absent: unexplained weight gain, unexplained weight loss, heat intolerance, cold intolerance NEUROLOGIC: had light headedness at time of syncope, denies now Absent: headache, focal weakness or paresthesias, dizziness, unsteady gait, seizure, mental status changes, bladder or bowel incontinence PSYCHIATRIC: Absent: anxiety, depression, suicidal or homicidal ideation, hallucinations. PHYSICAL EXAMINATION Vital Signs - 24 hr 04/14/20 04/14/20 04/14/20 11:53 13:47 15:18 Temperature 98.7 F Pulse Rate 82 Pulse Rate [ 89 Right Radial] Respiratory 16 18 18 Rate Blood Pressure 180/100 H Blood Pressure 172/87 H [Left Arm] O2 Sat by Pulse 99 99 99 Oximetry (%) GENERAL: The patient is awake, alert, and fully oriented, in no acute distress. HEAD: Lesion above right eye near [place] EYES: Left eye gone due to retinal detachment, PERRL, extraocular movements intact, sclera anicteric, conjunctiva clear. ENT: moist mucous membranes. LUNGS: Breath sounds equal, clear to auscultation bilaterally HEART: RRR s1, s2, no murmurs appreciated ABDOMEN: Soft, nontender, nondistended, normoactive bowel sounds, hepatomegaly appreciated EXTREMITIES: 2+ pulses, warm, well-perfused, no edema. muscle strength 5/5 BL LE, 5/5 R UE, 3/5 L UE. NEUROLOGICAL: Cranial nerves II through XII grossly intact. Normal speech. SKIN: Warm, dry, no rashes or lesions noted Laboratory Results - last 24 hr 04/14/20 04/14/20 04/14/20 12:02 12:15 12:15 WBC 9.8 RBC 4.79 Hgb 12.8 Hct 39.4 MCV 82.1 MCH 26.7 MCHC 32.5 RDW 14.0 Plt Count 204 MPV 8.2 Absolute Neuts (auto) 7.9 Neutrophils % 80.5 D Lymphocytes % 12.0 D Monocytes % 6.4 Eosinophils % 0.8 Basophils % 0.3 Nucleated RBC % 0 PTT (Actin FS) 30.6 Sodium Potassium Chloride Carbon Dioxide Anion Gap BUN Creatinine Est GFR (CKD-EPI)AfAm Est GFR (CKD-EPI)NonAf POC Glucometer 81 Random Glucose Calcium Phosphorus Magnesium Total Bilirubin AST ALT Alkaline Phosphatase Creatine Kinase Creatine Kinase Index CK-MB (CK-2) Troponin I Total Protein Albumin Urine Color Urine Appearance Urine pH Ur Specific [place] Urine Protein Urine Glucose (UA) Urine Ketones Urine Blood Urine Nitrite Urine Bilirubin Urine Urobilinogen Ur Leukocyte Esterase 04/14/20 04/14/20 12:15 12:15 WBC RBC Hgb Hct MCV MCH MCHC RDW Plt Count MPV Absolute Neuts (auto) Neutrophils % Lymphocytes % Monocytes % Eosinophils % Basophils % Nucleated RBC % PTT (Actin FS) Sodium 140 Potassium 4.1 Chloride 105 Carbon Dioxide 29 Anion Gap 6 L BUN 14.0 Creatinine 0.9 Est GFR (CKD-EPI)AfAm 116.65 Est GFR (CKD-EPI)NonAf 100.64 POC Glucometer Random Glucose 83 Calcium 8.8 Phosphorus 3.4 Magnesium 2.1 Total Bilirubin 0.7 AST 25 ALT 17 Alkaline Phosphatase 55 Creatine Kinase 264 Creatine Kinase Index 1.2 CK-MB (CK-2) 3.2 Troponin I < 0.02 Total Protein 7.2 Albumin 4.0 Urine Color Yellow Urine Appearance Clear Urine pH 5.0 Ur Specific [place] 1.015 Urine Protein Negative Urine Glucose (UA) Negative Urine Ketones Negative Urine Blood Negative Urine Nitrite Negative Urine Bilirubin Negative Urine Urobilinogen 1.0 Ur Leukocyte Esterase Negative CT scan of the head without intravenous contrast Compared to prior CT scan of the head dated 03/24/2020 Previously visualized encephalomalacia in the right frontal lobe, periventricular white matter that appears to be extending to the anterior aspect of the right basal ganglia is again seen without interval change. There is minimal cerebral and mild cerebellar volume loss as well as mild ventricular prominence. No mass lesion, gross CT evidence of an acute infarct or intracranial hemorrhage are identified. The calvarium is intact. Postop changes with a lucent band again seen around the right eye globe. Likely left thigh prosthesis. Correlate clinically. The calvarium is intact IMPRESSION: No gross interval change or CT evidence of acute intracranial pathology is identified CT scan of the cervical spine without intravenous contrast Coronal and sagittal reconstruction images were obtained. There is straightening of the cervical spine. No gross fracture, subluxation or prevertebral soft tissue swelling is seen. No jumped facets are identified. Mild degenerative anterior spondylosis at C4-C5 and C5-C6 level. Right uncovertebral hypertrophy at C3-C4 level moderately narrowing the foramen. Visualized portion of the airway appears unremarkable. No gross enlarged lymph nodes are identified. Lung windows at the thoracic inlet appear unremarkable. IMPRESSION: See discussion above The alignment is satisfactory without evidence of a fracture or subluxation. Uncovertebral hypertrophy moderately narrowing the right foramen at C3-C4 level. 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 Presents to the ED s/p syncopal episode with hitting his head after using PCP. Admitted to tele/obs for further monitoring s/p syncopal episode. Syncope: 2/2 PCP vs dehydration vs. arrhythmia or cardiac event - trop negative x1, repeat trop pending - EKG shows no significant changes from prior - prior echo normal EF - HTN likely from PCP use and not having taken home meds before syncope - 1L IV fluids given in ED - monitor pressure - Ativan 2mg Q4H PRN agitation & HTN HTN - continue lisinopril & amlodipine - consider increasing lisinopril if BP stays elevated Hx CVA: - continue lipitor - continue plavix - hold ASA for now because of head trauma DVT Ppx SCDs FEN PO fluids monitor labs sodium-controlled diet Dispo tele obs anticipate d/c tomorrow does not like his current long-term, was told by social work patient can get [employer] card or cab fare to go to whichever long-term he'd prefer. Family Medical History Family History: As Documented Visit type - Emergency Visit Emergency Visit: Yes ED Registration Date: 04/14/20 Care time: The patient presented to the Emergency Department on the above date and was hospitalized for further evaluation of their emergent condition. - New Patient This patient is new to me today: No - Critical Care Critical Care patient: No ATTENDING PHYSICIAN STATEMENT I saw and evaluated the patient. I reviewed the resident's note and discussed the case with the resident. I agree with the resident's findings and plan as documented. SUBJECTIVE: OBJECTIVE: ASSESSMENT AND PLAN:
[2020-04-14] MEDS ORDERED: ACETAMINOPHEN 500 MG TABLET (FP) PO ONE (17:06)
[2020-04-14] MEDS ORDERED: ACETAMINOPHEN 325 MG TABLET (FP) PO PRN (17:09)
[2020-04-14] MEDS: NICOTINE 14 MG/24 HOURS TOPICAL PATCH TD SCH (17:59)
[2020-04-14 18:13] LABS: COCAINE, UR NEGATIVE ng/ml (CUTOFF=300); OPIATES, URI NEGATIVE ng/ml (CUTOFF=300); URINE AMPHETAMINES NEGATIVE ng/ml (CUTOFF=500); URINE BARBITURATES NEGATIVE ng/ml (CUTOFF=200); URINE BENZODIAZEPINES NEGATIVE ng/ml (CUTOFF=200)
[2020-04-14 18:26] LABS: METHADONE, UR NEGATIVE ng/ml (CUTOFF=300)
[2020-04-14 18:32] LABS: PHENCYCLIDINE,URINE POSITIVE ng/ml (CUTOFF=25)
[2020-04-14 18:37] LABS: INR 1.1 (0.83-1.09)
[2020-04-14] MEDS ORDERED: ATORVASTATIN CA 40 MG TABLET (FP) ONE (23:35)
[2020-04-14] MEDS: ATORVASTATIN CA 80 MG TABLET (FP) PO SCH (23:42)
[2020-04-15 08:11] LABS: ALBUMIN 3.7 g/dl (3.4-5.0); BILIRUBIN,TOTAL 0.6 mg/dL (0.2-1); BLOOD UREA NITROGEN 13.2 mg/dL (7-18); CALCIUM 8.7 mg/dL (8.5-10.1); CREATININE 0.9 mg/dL (0.55-1.3); MAGNESIUM 2.2 mg/dL (1.8-2.4); PHOSPHOROUS 3.9 mg/dL (2.5-4.9); POTASSIUM 3.9 mmol/L (3.5-5.1); TOT PROT 6.6 g/dl (6.4-8.2)
[2020-04-15 08:14] LABS: HEMATOCRIT 40.2 % (35.4-49); HEMOGLOBIN 13.4 GM/dL (11.7-16.9); MCH 27.5 pg (25.7-33.7); MCHC 33.3 g/dl (32.0-35.9); MEAN CELL VOLUME 82.7 fl (80-96); MEAN PLT VOLUME 8.5 fl (7.5-11.1); PLATELET COUNT 201 K/MM3 (134-434); RBC 4.86 M/mm3 (4.00-5.60); WHITE BLOOD COUNT 9.2 K/mm3 (4.0-10.0)
[2020-04-15] MEDS: NICOTINE 14 MG/24 HOURS TOPICAL PATCH TD SCH (10:59)
[2020-04-15] MEDS: FOLIC ACID 1 MG TABLET (FP) PO SCH (11:00)
[2020-04-15] MEDS: amLODIPine BESYLATE 10 MG TABLET (FP) PO SCH (11:00)
[2020-04-15] MEDS: THIAMINE HCL 100 MG TABLET (FP) PO SCH (11:00)
[2020-04-15] MEDS: LISINOPRIL 20 MG TABLET (FP) PO SCH (11:00)
[2020-04-15] MEDS: CLOPIDOGREL BISULFATE 75 MG TABLET (FP) PO SCH (11:00)
--- NOTE | 2020-04-15 13:41 | PN ---
Progress Note (short form) - Note Progress Note: This patient is a 49yom with Pmhx of CVA (12/2019 w/residual LUE weakness), traumatic enucleation L eye, HTN, HLD, schizophrenia, polysubstance abuse (PCP, alcohol, MJ, nicotine), not on AC. Presented with a syncopal event where he hit his head . Patient said he used PCP this morning and started to feel light headed and passed out. Patient has no new complains. Vital Signs Temperature 97.5 F L 04/15/20 10:00 Pulse Rate 65 04/15/20 10:00 Respiratory Rate 20 04/15/20 10:00 Blood Pressure 139/98 04/15/20 10:00 O2 Sat by Pulse Oximetry (%) 97 04/15/20 10:00 GENERAL: The patient is awake, alert, and fully oriented, NAD. HEAD: Normal with no signs of trauma. EYES: PERRL, extraocular movements intact, sclera anicteric, conjunctiva clear. ENT: Ears normal, oropharynx clear without exudates, moist mucous membranes. NECK: Trachea midline, full range of motion, supple. LUNGS: Breath sounds equal, clear to auscultation bilaterally, no wheezes, no crackles, no accessory muscle use. HEART: Regular rate and rhythm, S1, S2 + , no rub or gallop. ABDOMEN: Soft, nontender, nondistended, normoactive bowel sounds, no guarding, no rebound, no hepatosplenomegaly, no masses. EXTREMITIES: 2+ pulses, warm, well-perfused, no edema. NEUROLOGICAL: Cranial nerves II through XII grossly intact. Normal speech, gait not observed. PSYCH: Normal mood, normal affect. SKIN: Warm, dry, normal turgor, no rashes or lesions noted CBCD WBC 9.2 K/mm3 (4.0-10.0) 04/15/20 06:25 RBC 4.86 M/mm3 (4.00-5.60) 04/15/20 06:25 Hgb 13.4 GM/dL (11.7-16.9) 04/15/20 06:25 Hct 40.2 % (35.4-49) 04/15/20 06:25 MCV 82.7 fl (80-96) 04/15/20 06:25 MCHC 33.3 g/dl (32.0-35.9) 04/15/20 06:25 RDW 14.0 % (11.9-15.9) 04/15/20 06:25 Plt Count 201 K/MM3 (134-434) 04/15/20 06:25 MPV 8.5 fl (7.5-11.1) 04/15/20 06:25 CMP Sodium 140 mmol/L (136-145) 04/15/20 06:25 Potassium 3.9 mmol/L (3.5-5.1) 04/15/20 06:25 Chloride 106 mmol/L (98-107) 04/15/20 06:25 Carbon Dioxide 28 mmol/L (21-32) 04/15/20 06:25 Anion Gap 6 MMOL/L (8-16) L 04/15/20 06:25 BUN 13.2 mg/dL (7-18) 04/15/20 06:25 Creatinine 0.9 mg/dL (0.55-1.3) 04/15/20 06:25 Random Glucose 82 mg/dL (74-106) 04/15/20 06:25 Calcium 8.7 mg/dL (8.5-10.1) 04/15/20 06:25 Total Bilirubin 0.6 mg/dL (0.2-1) 04/15/20 06:25 AST 13 U/L (15-37) L 04/15/20 06:25 ALT 16 U/L (13-61) 04/15/20 06:25 Alkaline Phosphatase 53 U/L (45-117) 04/15/20 06:25 Total Protein 6.6 g/dl (6.4-8.2) 04/15/20 06:25 Albumin 3.7 g/dl (3.4-5.0) 04/15/20 06:25 CARDIAC ENZYMES Creatine Kinase 264 U/L (26-308) 04/14/20 12:15 Troponin I 0.02 ng/ml (0.00-0.05) 04/14/20 16:15 Current Medications Generic Name Dose Route Start Last Admin Trade Name Freq PRN Reason Stop Dose Admin Acetaminophen 650 mg 04/14/20 17:09 Tylenol - PO Q6H PRN Fever Or Pain Amlodipine Besylate 10 mg 04/15/20 10:00 04/15/20 11:00 Norvasc - PO 10 mg DAILY MARTY Administration Atorvastatin Calcium 80 mg 04/14/20 22:00 04/14/20 23:42 Lipitor - PO 80 mg HS MARTY Administration Clopidogrel Bisulfate 75 mg 04/15/20 10:00 04/15/20 11:00 Plavix - PO 75 mg DAILY MARTY Administration Folic Acid 1 mg 04/15/20 10:00 04/15/20 11:00 Folic Acid - PO 1 mg DAILY MARTY Administration Lisinopril 20 mg 04/15/20 10:00 04/15/20 11:00 Prinivil PO 20 mg DAILY MARTY Administration Lorazepam 2 mg 04/14/20 16:11 Ativan Injection - IVPUSH Q4H PRN AGITATION Nicotine 14 mg 04/14/20 16:15 04/15/20 10:59 Nicoderm Patch - TD Not Given DAILY MARTY Thiamine HCl 100 mg 04/15/20 10:00 04/15/20 11:00 Vitamin B1 - PO 100 mg DAILY MARTY Administration Home Medications Medication Instructions Recorded Lisinopril [Prinivil] 20 mg PO DAILY #30 tablet 10/13/19 Amlodipine Besylate [Norvasc -] 10 mg PO DAILY tablet 03/25/20 Atorvastatin Ca [Lipitor] 80 mg PO HS tablet 03/25/20 Clopidogrel Bisulfate [Plavix] 75 mg PO DAILY #30 tablet 03/25/20 Folic Acid - 1 mg PO DAILY tablet 03/25/20 Nicotine Patch [Nicoderm Patch -] 14 mg TD DAILY patch 03/25/20 Thiamine HCl [Vitamin B1 -] 100 mg PO DAILY 03/25/20 CT scan of the head without intravenous contrast Compared to prior CT scan of the head dated 03/24/2020 Previously visualized encephalomalacia in the right frontal lobe, periventricular white matter that appears to be extending to the anterior aspect of the right basal ganglia is again seen without interval change. There is minimal cerebral and mild cerebellar volume loss as well as mild ventricular prominence. No mass lesion, gross CT evidence of an acute infarct or intracranial hemorrhage are identified. The calvarium is intact. Postop changes with a lucent band again seen around the right eye globe. Likely left thigh prosthesis. Correlate clinically. The calvarium is intact IMPRESSION: No gross interval change or CT evidence of acute intracranial pathology is identified CT scan of the cervical spine without intravenous contrast Coronal and sagittal reconstruction images were obtained. There is straightening of the cervical spine. No gross fracture, subluxation or prevertebral soft tissue swelling is seen. No jumped facets are identified. Mild degenerative anterior spondylosis at C4-C5 and C5-C6 level. Right uncovertebral hypertrophy at C3-C4 level moderately narrowing the foramen. Visualized portion of the airway appears unremarkable. No gross enlarged lymph nodes are identified. Lung windows at the thoracic inlet appear unremarkable. IMPRESSION: See discussion above The alignment is satisfactory without evidence of a fracture or subluxation. Uncovertebral hypertrophy moderately narrowing the right foramen at C3-C4 level. 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 Presents to the ED s/p syncopal episode with hitting his head after using PCP. # Acute Syncope: most likely due to substance abuse/dehydration #HTN controlled on lisinopril & amlodipine #Hx CVA: continue lipitor ,plavix DVT Ppx: SCDs Dispo : tele obs d/c in am before 10am since custodial closes before 2pm does not like his current custodial, was told by social work patient can get [employer] card or cab fare to go to whichever custodial he'd prefer. Visit type - Emergency Visit Emergency Visit: Yes ED Registration Date: 04/14/20 Care time: The patient presented to the Emergency Department on the above date and was hospitalized for further evaluation of their emergent condition. - New Patient This patient is new to me today: Yes Date on this admission: 04/15/20 - Critical Care Critical Care patient: No - Discharge Referral Referred to [facility] Med P.C.: No
[2020-04-15] MEDS: ATORVASTATIN CA 80 MG TABLET (FP) PO SCH (21:56)
[2020-04-16] MEDS ORDERED: ASPIRIN COATED 81 MG TABLET.EC PO SCH (10:00)
[2020-04-16] MEDS: FOLIC ACID 1 MG TABLET (FP) PO SCH (10:15)
[2020-04-16] MEDS: LISINOPRIL 20 MG TABLET (FP) PO SCH (10:15)
[2020-04-16] MEDS: amLODIPine BESYLATE 10 MG TABLET (FP) PO SCH (10:16)
[2020-04-16] MEDS: CLOPIDOGREL BISULFATE 75 MG TABLET (FP) PO SCH (10:16)
[2020-04-16] MEDS: NICOTINE 14 MG/24 HOURS TOPICAL PATCH TD SCH (10:16)
[2020-04-16] MEDS: THIAMINE HCL 100 MG TABLET (FP) PO SCH (10:16)
[2020-04-16 10:37] VITALS: BP 141/88; PULSE 63; TEMP 97.8
--- NOTE | 2020-04-16 11:16 | DS ---
Physical Exam: SUBJECTIVE: Patient seen and examined at bedside. OBJECTIVE: Vital Signs Period Temp Pulse Resp BP Sys/Serna Pulse Ox Last 24 Hr 97.8 F-98.4 F 52-63 20-20 135-142/76-88 98-98 PHYSICAL EXAM GENERAL: The patient is awake, alert, and fully oriented, in no acute distress. HEAD: Normal with no signs of trauma. EYES: PERRL, extraocular movements intact, sclera anicteric, conjunctiva clear. ENT: Ears normal, nares patent, oropharynx clear without exudates, moist mucous membranes. NECK: Trachea midline, full range of motion, supple. LUNGS: Breath sounds equal, clear to auscultation bilaterally, no wheezes, no crackles, no accessory muscle use. HEART: Regular rate and rhythm, S1, S2 without murmur, rub or gallop. ABDOMEN: Soft, nontender, nondistended, normoactive bowel sounds, no guarding, no rebound, no hepatosplenomegaly, no masses. EXTREMITIES: 2+ pulses, warm, well-perfused, no edema. NEUROLOGICAL: Cranial nerves II through XII grossly intact. Normal speech, gait not observed. PSYCH: Normal mood, normal affect. SKIN: Warm, dry, normal turgor, no rashes or lesions noted. LABS HOSPITAL COURSE: Date of Admission:04/14/20 Date of Discharge: 04/16/20 <Willard Jimenez - Last Filed: 04/16/20 11:16> Physical Exam: SUBJECTIVE: Patient seen and examined Patient has no further complains. Vital Signs Temperature 97.8 F 04/16/20 10:00 Pulse Rate 63 04/16/20 10:00 Respiratory Rate 20 04/16/20 10:00 Blood Pressure 141/88 04/16/20 10:00 O2 Sat by Pulse Oximetry (%) 98 04/16/20 10:00 CBCD WBC 9.2 K/mm3 (4.0-10.0) 04/15/20 06:25 RBC 4.86 M/mm3 (4.00-5.60) 04/15/20 06:25 Hgb 13.4 GM/dL (11.7-16.9) 04/15/20 06:25 Hct 40.2 % (35.4-49) 04/15/20 06:25 MCV 82.7 fl (80-96) 04/15/20 06:25 MCHC 33.3 g/dl (32.0-35.9) 04/15/20 06:25 RDW 14.0 % (11.9-15.9) 04/15/20 06:25 Plt Count 201 K/MM3 (134-434) 04/15/20 06:25 MPV 8.5 fl (7.5-11.1) 04/15/20 06:25 CMP Sodium 140 mmol/L (136-145) 04/15/20 06:25 Potassium 3.9 mmol/L (3.5-5.1) 04/15/20 06:25 Chloride 106 mmol/L (98-107) 04/15/20 06:25 Carbon Dioxide 28 mmol/L (21-32) 04/15/20 06:25 Anion Gap 6 MMOL/L (8-16) L 04/15/20 06:25 BUN 13.2 mg/dL (7-18) 04/15/20 06:25 Creatinine 0.9 mg/dL (0.55-1.3) 04/15/20 06:25 Random Glucose 82 mg/dL (74-106) 04/15/20 06:25 Calcium 8.7 mg/dL (8.5-10.1) 04/15/20 06:25 Total Bilirubin 0.6 mg/dL (0.2-1) 04/15/20 06:25 AST 13 U/L (15-37) L 04/15/20 06:25 ALT 16 U/L (13-61) 04/15/20 06:25 Alkaline Phosphatase 53 U/L (45-117) 04/15/20 06:25 Total Protein 6.6 g/dl (6.4-8.2) 04/15/20 06:25 Albumin 3.7 g/dl (3.4-5.0) 04/15/20 06:25 CARDIAC ENZYMES Creatine Kinase 264 U/L (26-308) 04/14/20 12:15 Troponin I 0.02 ng/ml (0.00-0.05) 04/14/20 16:15 Home Medications Medication Instructions Recorded Folic Acid - 1 mg PO DAILY tablet 03/25/20 Nicotine Patch [Nicoderm Patch -] 14 mg TD DAILY patch 03/25/20 Thiamine HCl [Vitamin B1 -] 100 mg PO DAILY 03/25/20 Amlodipine Besylate [Norvasc -] 10 mg PO DAILY #30 tablet 04/16/20 Aspirin Coated [Ecotrin -] 81 mg PO DAILY #30 tablet.ec 04/16/20 Atorvastatin Ca [Lipitor] 80 mg PO HS #30 tablet 04/16/20 Clopidogrel Bisulfate [Plavix] 75 mg PO DAILY #30 tablet 04/16/20 Lisinopril [Prinivil] 20 mg PO DAILY #30 tablet 04/16/20 HOSPITAL COURSE: Date of Admission:04/14/20 Date of Discharge: 04/16/20 CT scan of the head without intravenous contrast Compared to prior CT scan of the head dated 03/24/2020 Previously visualized encephalomalacia in the right frontal lobe, periventricular white matter that appears to be extending to the anterior aspect of the right basal ganglia is again seen without interval change. There is minimal cerebral and mild cerebellar volume loss as well as mild ventricular prominence. No mass lesion, gross CT evidence of an acute infarct or intracranial hemorrhage are identified. The calvarium is intact. Postop changes with a lucent band again seen around the right eye globe. Likely left thigh prosthesis. Correlate clinically. The calvarium is intact IMPRESSION: No gross interval change or CT evidence of acute intracranial pathology is identified CT scan of the cervical spine without intravenous contrast Coronal and sagittal reconstruction images were obtained. There is straightening of the cervical spine. No gross fracture, subluxation or prevertebral soft tissue swelling is seen. No jumped facets are identified. Mild degenerative anterior spondylosis at C4-C5 and C5-C6 level. Right uncovertebral hypertrophy at C3-C4 level moderately narrowing the foramen. Visualized portion of the airway appears unremarkable. No gross enlarged lymph nodes are identified. Lung windows at the thoracic inlet appear unremarkable. IMPRESSION: See discussion above The alignment is satisfactory without evidence of a fracture or subluxation. Uncovertebral hypertrophy moderately narrowing the right foramen at C3-C4 level. Correlate clinically This patient is a 49yom with a PMHx of CVA (12/2019 w/residual LUE weakness), traumatic enucleation L eye, HTN, HLD, schizophrenia, polysubstance abuse (PCP, alcohol, MJ, nicotine). Presents to the ED s/p syncopal episode with hitting his head after using PCP. # Acute Syncope: most likely due to substance abuse/dehydration/PCP #HTN controlled on lisinopril & amlodipine , dc home with #Hx CVA: continue lipitor ,plavix and asa , dc home with abstinece from illicit drugs DVT Ppx: SCDs Minutes to complete discharge: 35 <Imelda Card - Last Filed: 04/16/20 14:08> Discharge Summary Problems reviewed: Yes Current Active Problems PCP dependence (Chronic) Traumatic enucleation of left eye (Chronic) - Home Medications Comprehensive Discharge Medication List: Ambulatory Orders Lisinopril [Prinivil] 20 mg PO DAILY #30 tablet 10/13/19 Amlodipine Besylate [Norvasc -] 10 mg PO DAILY tablet 03/25/20 Atorvastatin Ca [Lipitor] 80 mg PO HS tablet 03/25/20 Clopidogrel Bisulfate [Plavix] 75 mg PO DAILY #30 tablet 03/25/20 Folic Acid - 1 mg PO DAILY tablet 03/25/20 Nicotine Patch [Nicoderm Patch -] 14 mg TD DAILY patch 03/25/20 Thiamine HCl [Vitamin B1 -] 100 mg PO DAILY 03/25/20 <Willard Jimenez - Last Filed: 04/16/20 11:16> - Home Medications Comprehensive Discharge Medication List: Ambulatory Orders Folic Acid - 1 mg PO DAILY tablet 03/25/20 Nicotine Patch [Nicoderm Patch -] 14 mg TD DAILY patch 03/25/20 Thiamine HCl [Vitamin B1 -] 100 mg PO DAILY 03/25/20 Amlodipine Besylate [Norvasc -] 10 mg PO DAILY #30 tablet 04/16/20 Aspirin Coated [Ecotrin -] 81 mg PO DAILY #30 tablet.ec 04/16/20 Atorvastatin Ca [Lipitor] 80 mg PO HS #30 tablet 04/16/20 Clopidogrel Bisulfate [Plavix] 75 mg PO DAILY #30 tablet 04/16/20 Lisinopril [Prinivil] 20 mg PO DAILY #30 tablet 04/16/20 <Imelda Card - Last Filed: 04/16/20 14:08> Reason For Visit: SYNCOPE AND COLLAPSE,PHENCYCLIDINE ABUSE,CONT Condition: Good - Instructions Diet, Activity, Other Instructions: You were admitted to the hospital because you had fainted. We evaluated you with lab work, blood work, and imaging, including a CAT scan of your head and the spine in your neck. Based on our evaluation, you fainted due to PCP and/or dehydration. We treated you with medications including IV fluids, and your symptoms resolved. Please stay well hydrated and avoid doing any drugs to prevent a recurrence of fainting. Additional Imaging Findings The following was found during your hospital admission on imaging: A CAT scan of your head and the spine in your neck found moderate narrowing of the spinal column at the C3 vertebrae / C4 vertebrae levels. Medications Please continue all of your medications as prescribed. Follow ups Please follow up with your Primary Care physician, or the Primary Care physician we have provided for you Dr. Sj Rutherford, within 1 week. If you experience worsening symptoms, chest pain, shortness of breath, abdominal pain, or worsening of your condition, please come to the emergency room or call 911. Referrals: Sj Rutherford MD [Staff Physician] - 1 Week Disposition: HOME - Discharge Referral Referred to [facility] Med P.C.: No <Willard Jimenez - Last Filed: 04/16/20 11:16> This patient is new to me today: No Emergency Visit: Yes ED Registration Date: 04/14/20 Care time: The patient presented to the Emergency Department on the above date and was hospitalized for further evaluation of their emergent condition. Critical Care patient: No - Discharge Referral Referred to [facility] Med P.C.: No <Imelda Card - Last Filed: 04/16/20 14:08> ATTENDING PHYSICIAN STATEMENT I saw and evaluated the patient. I reviewed the resident's note and discussed the case with the resident. I agree with the resident's findings and plan as documented. SUBJECTIVE: OBJECTIVE: ASSESSMENT AND PLAN: <Willard Jimenez - Last Filed: 04/16/20 11:16> ATTENDING PHYSICIAN STATEMENT I saw and evaluated the patient. I reviewed the resident's note and discussed the case with the resident. I agree with the resident's findings and plan as documented. SUBJECTIVE: OBJECTIVE: ASSESSMENT AND PLAN: <Imelda Card - Last Filed: 04/16/20 14:08>
--- NOTE | 2020-04-16 18:44 | EKG ---
Test Reason : Blood Pressure : / mmHG Vent. Rate : 078 BPM Atrial Rate : 078 BPM P-R Int : 166 ms QRS Dur : 092 ms QT Int : 412 ms P-R-T Axes : 065 -19 053 degrees QTc Int : 469 ms NORMAL SINUS RHYTHM MINIMAL VOLTAGE CRITERIA FOR LVH, MAY BE NORMAL VARIANT SEPTAL INFARCT (CITED ON OR BEFORE 24-MAR-2020) ABNORMAL ECG Confirmed by MD ABHIJEET, SHADI ([id number]) on 04/16/2020 6:44:18 PM Referred By: Confirmed By:SHADI JHA MD
== END 2020-04-16 12:29 | disposition home or self-care (01) | DRG 775 ==
LOC: JER 11:41 → JERBED 14:19 → OBSVTOIN 16:07 → J4W 04-15 02:26
PROVIDERS: ADMIT Internal Medicine; ATTEND Internal Medicine
PROC: HZ2ZZZZ Detoxification Services for Substance Abuse Treatment (ICD-10-PCS; principal; 2020-04-14)
DX: F16.229 Hallucinogen dependence with intoxication, unspecified (principal); R55 Syncope and collapse; I10 Essential (primary) hypertension; E78.5 Hyperlipidemia, unspecified; F20.9 Schizophrenia, unspecified; F17.210 Nicotine dependence, cigarettes, uncomplicated; F31.9 Bipolar disorder, unspecified; I69.854 Hemiplegia and hemiparesis following other cerebrovascular disease affecting left non-dominant side; S01.111A Laceration without foreign body of right eyelid and periocular area, initial encounter; F10.10 Alcohol abuse, uncomplicated; G93.89 Other specified disorders of brain; F12.10 Cannabis abuse, uncomplicated; E86.0 Dehydration; W18.39XA Other fall on same level, initial encounter; Y92.89 Other specified places as the place of occurrence of the external cause; S05.72XS Avulsion of left eye, sequela
CPT/HCPCS: 36415; 70450-TC; 71045-TC-FY; 72125-TC; 80053; 80307; 81003; 82550; 82553; 82962; 83735; 84100; 84484; 85025; 85027; 85610; 85730; 87086; 93005; 93010; 99285-25; G0378; U0003

== ENCOUNTER 2023-08-14 10:42 | Observation (INO) | payer OTHER ==
[2023-08-14 11:48] LABS: BASO % 0.6 % (0-2.0); EOS % 1.6 % (0-4.5); HEMATOCRIT 43.2 % (35.4-49); LYMPH % 17.7 % (8-40); MCH 26.7 pg (25.7-33.7); MCHC 32.3 g/dl (32.0-35.9); MEAN CELL VOLUME 82.5 fl (80-96); MEAN PLT VOLUME 7.9 fl (7.5-11.1); MONO % 6.4 % (3.8-10.2); NEUT % 73.7 % (42.8-82.8); PLATELET COUNT 221 10^3/uL (134-434); RBC 5.24 M/mm3 (4.00-5.60); WHITE BLOOD COUNT 9.1 K/mm3 (4.0-10.0)
[2023-08-14 12:03] LABS: POTASSIUM 3.9 mmol/L (3.5-5.1)
[2023-08-14 12:05] LABS: CALCIUM 8.2 mg/dL (8.5-10.1)
[2023-08-14 12:06] LABS: ALBUMIN 3.4 g/dl (3.4-5.0)
[2023-08-14 12:11] LABS: BILIRUBIN,TOTAL 0.9 mg/dL (0.2-1); TOT PROT 6.3 g/dl (6.4-8.2)
[2023-08-14] MEDS ORDERED: NICOTINE 21 MG/24 HOURS TOPICAL PATCH ONE (16:06)
[2023-08-14] MEDS: NICOTINE 21 MG/24 HOURS TOPICAL PATCH TD SCH (16:15)
[2023-08-14] MEDS ORDERED: ATORVASTATIN CA 80 MG TABLET (FP) ONE (19:54)
[2023-08-14] MEDS ORDERED: ATORVASTATIN CA 80 MG TABLET (FP) PO SCH (22:00)
[2023-08-15 03:13] VITALS: RESP 18
[2023-08-15 04:19] VITALS: BMI 31.0
[2023-08-15 07:06] LABS: HEMATOCRIT 42.5 % (35.4-49); HEMOGLOBIN 13.7 GM/dL (11.7-16.9); MCH 26.5 pg (25.7-33.7); MCHC 32.2 g/dl (32.0-35.9); MEAN CELL VOLUME 82.5 fl (80-96); MEAN PLT VOLUME 8.3 fl (7.5-11.1); PLATELET COUNT 211 10^3/uL (134-434); RBC 5.16 M/mm3 (4.00-5.60); RDW 14.9 % (11.9-15.9); WHITE BLOOD COUNT 9.7 K/mm3 (4.0-10.0)
[2023-08-15 07:18] LABS: POTASSIUM 3.8 mmol/L (3.5-5.1)
[2023-08-15 07:21] LABS: CALCIUM 8.4 mg/dL (8.5-10.1)
[2023-08-15 07:22] LABS: MAGNESIUM 2.1 mg/dL (1.8-2.4)
[2023-08-15 07:24] LABS: BLOOD UREA NITROGEN 16.6 mg/dL (7-18)
[2023-08-15 07:25] LABS: CREATININE 1.1 mg/dL (0.55-1.3)
[2023-08-15 09:34] VITALS: BP 151/82; PULSE 53; TEMP 98.2
[2023-08-15] MEDS: NICOTINE 21 MG/24 HOURS TOPICAL PATCH TD SCH (09:45)
[2023-08-15] MEDS ORDERED: ASPIRIN COATED 81 MG TABLET.EC PO SCH (10:00)
[2023-08-15] MEDS ORDERED: amLODIPine BESYLATE 10 MG TABLET (FP) PO SCH (10:00)
[2023-08-15] MEDS ORDERED: FLU VACCINE (FLULAVAL) PF 60 MCG/0.5 ML SYRINGE 2023-2024 IM ONE (12:00)
== END 2023-08-15 15:28 | disposition home or self-care (01) ==
LOC: JER 10:42 → JERBED 12:46 → J4W 08-15 03:38
PROVIDERS: ADMIT Internal Medicine; ATTEND Internal Medicine
PROC: 3E023GC Introduction of Other Therapeutic Substance into Muscle, Percutaneous Approach (ICD-10-PCS; principal; 2023-08-14)
DX: R00.1 Bradycardia, unspecified (principal); I50.30 Unspecified diastolic (congestive) heart failure; F25.9 Schizoaffective disorder, unspecified; E78.5 Hyperlipidemia, unspecified; I11.0 Hypertensive heart disease with heart failure; S05.72XA Avulsion of left eye, initial encounter; X58.XXXA Exposure to other specified factors, initial encounter; Y93.9 Activity, unspecified; F19.10 Other psychoactive substance abuse, uncomplicated; Z23 Encounter for immunization; Z86.73 Personal history of transient ischemic attack (TIA), and cerebral infarction without residual deficits; F17.210 Nicotine dependence, cigarettes, uncomplicated
CPT/HCPCS: 36415; 71045-TC-FY; 80048; 80053; 83735; 84443; 84484; 85025; 85027; 90686; 93005; 93010; 93306-TC; 96372; 97116-GP; 97161-GP; 99285-25; G0008; G0378